=== PATIENT | female | born 1945 | race Caucasian/White ===

== ENCOUNTER → 2016-07-29 | Outpatient (CLI) | payer MEDICARE | END | disposition home or self-care (01) | LOC: LABWHC1 06:35 | PROVIDERS: ATTEND Nurse Practitioner Family | DX: I12.9 Hypertensive chronic kidney disease with stage 1 through stage 4 chronic kidney disease, or unspecified chronic kidney disease (principal); M18.9 Osteoarthritis of first carpometacarpal joint, unspecified | CPT/HCPCS: 36415; 84132 ==

== ENCOUNTER → 2016-08-11 | Outpatient (CLI) | payer MEDICARE ==
[2016-08-11 07:05] LABS: Basophils # (A) 0.1 k/uL (0-0.2); Basophils % (A) 1 %; CH 30.4; CHCM 32.3; Eosinophils # (A) 0.5 k/uL (0-0.7); Eosinophils % (A) 7 %; HCT 35.4 % (34.0-46.0); HDW 2.51; HGB 11.2 gm/dL (11.4-16.0); Luc # (Auto) 0.25; Luc % (Auto) 4; Lymphocytes # (A) 1.9 k/uL (1.0-4.8); Lymphocytes % (A) 28 %; MCHC 31.7 g/dL (31.0-37.0); MCV 94.7 fL (80.0-100.0); Mean Platelet Volume 8.4; Monocytes # (A) 0.5 k/uL (0-1.0); Monocytes % (A) 7 %; Neutrophils # (A) 3.6 k/uL (1.3-7.7); Neutrophils % (A) 53 %; RBC 3.73 m/uL (3.80-5.40); RDW 15.3 % (11.5-15.5); WBC 6.8 k/uL (3.8-10.6); WBC (Perox) 7.05
[2016-08-11 07:16] LABS: Appearance,Urine Clear (Clear); Bacteria,Urine Occasional /hpf; Bilirubin,Urine Negative (Negative); Glucose,Urine (UA) Negative (Negative); Ketones,Urine Negative (Negative); Leukocyte Esterase,Urine Large (Negative); Mucus,Urine Rare /hpf; Nitrite,Urine Negative (Negative); PH, Urine 6.5 (5.0-8.0); Particle Count 2121; Protein,Urine 1+ (Negative); RBC,Urine 1 /hpf (0-5); Specific Gravity,Urine 1.005 (1.001-1.035); Squamous Epithelial Cell,Urine 2 /hpf (0-4); UA Billing (MACRO vs. MICRO) MICRO; Urobilinogen,Urine <2.0 mg/dL (<2.0); WBC,Urine 10 /hpf (0-5)
[2016-08-11 11:21] LABS: Magnesium 2.2 mg/dL (1.6-2.3); Phosphorous 4.5 mg/dL (2.5-4.5); Potassium 3.9 mmol/L (3.5-5.1); Uric Acid 5.6 mg/dL (3.7-7.4)
[2016-08-11 11:31] LABS: % Iron Saturation 24.2 % (20-50)
== END | disposition home or self-care (01) ==
LOC: LABWHC1 06:42
PROVIDERS: ATTEND Nurse Practitioner Family
DX: N18.4 Chronic kidney disease, stage 4 (severe) (principal); D64.9 Anemia, unspecified; E55.9 Vitamin D deficiency, unspecified; E21.3 Hyperparathyroidism, unspecified; N39.0 Urinary tract infection, site not specified
CPT/HCPCS: 36415; 80048; 81001; 82306; 82728; 83540; 83550; 83735; 83970; 84100; 84550; 85025

== ENCOUNTER → 2016-09-08 | Outpatient (CLI) | payer MEDICARE ==
--- NOTE | 2016-09-08 08:55 | US ---
EXAMINATION TYPE: US kidneys/renal and bladder DATE OF EXAM: 09/08/2016 7:29 AM COMPARISON: Limited abdomen ultrasound 27 Nov 2013 CLINICAL HISTORY: N18.4 CKD,Stage 4. EXAM MEASUREMENTS: Right Kidney: 9.4 x 5.3 x 4.5 cm Left Kidney: 10.0 x 4.8 x 4.7 cm Bladder: wnl Cortical medullary differentiation is diminished bilaterally. Cortical echogenicity is increased. Cor tical cyst at the upper pole of the right kidney is again noted. It has increased in size to approxim ately 2 cm from 12 mm. Small echogenic focus measuring 4 mm x 5 mm is present immediately adjacent in the upper pole on the right. IMPRESSION: Findings compatible with medical renal disease.
== END | disposition home or self-care (01) ==
LOC: RADUSWWP 06:53
PROVIDERS: ATTEND Internal Medicine Nephrology
DX: I12.9 Hypertensive chronic kidney disease with stage 1 through stage 4 chronic kidney disease, or unspecified chronic kidney disease (principal)
CPT/HCPCS: 76770; 84132

== ENCOUNTER → 2016-09-15 | Outpatient (CLI) | payer MEDICARE ==
--- NOTE | 2016-09-15 10:24 | WWHP ---
DATE OF SERVICE: 09/15/2016 CHIEF COMPLAINT: The patient is here for her routine gynecologic exam and mammogram. HPI: This is a 71-year-old, G2, P2 with an LMP of 2002. The patient is without gynecologic complaints and denies any postmenopausal bleeding. PAST MEDICAL HISTORY: Chronic hypertension, elevated cholesterol, type 2 diabetes, osteopenia, and renal failure. She states she may need a renal transplant in the future. MEDICATIONS: 1. NovoLog 15 units with meals. 2. Simvastatin 40 mg at bedtime. 3. Furosemide 40 mg daily. 4. Amlodipine besylate 10 mg daily. 5. Hydralazine 25 mg t.i.d. 6. Allopurinol 300 mg daily. 7. Lantus 34 units q.h.s. 8. Sensipar 30 mg weekly. Allergies to PENICILLIN, ERYTHROMYCIN, CLINDAMYCIN, VANCOMYCIN, METRONIDAZOLE and CERTAIN TAPES. Past surgical history is unchanged from the 2014 H&P. 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 SOCIAL HISTORY: She denies tobacco and drug use and rarely drinks alcohol. She has been since the 1960s and is retired. FAMILY HISTORY: Mother had breast cancer. Grandmother had diabetes. REVIEW OF SYSTEMS: Weight has been stable. She denies respiratory, cardiac, or GI problems. She denies maltreatment or falling. She also denies any problems with urinary leakage. PHYSICAL EXAM: Blood pressure 136/77. Height 5 feet 3 inches. Weight 192 pounds. Temperature 97.8, pulse 81. This a well-developed, heavyset white female who is alert and oriented x3 in no acute distress. HEENT is within normal limits. NECK: Supple without mass or thyromegaly. CHEST AND LUNGS: Clear to auscultation. HEART: Regular rate and rhythm. Breasts are without mass or discharge. Axillary exam is negative for adenopathy. BACK: Negative for CVA tenderness. ABDOMEN: Mildly obese and there is a slight bruising in the areas of her insulin injections. The abdomen is soft and nontender, without palpable masses. PELVIC EXAM: External genitalia reveals mild to moderate atrophy without lesions. Cervix and vagina reveal mild to moderate atrophy without lesions. There is a grade 2 rectocele and minimal uterine prolapse. The uterus is midposition, nongravid size and nontender. There are no palpable adnexal masses or tenderness. Rectovaginal exam confirms a small rectocele and is negative for mass or tenderness and is negative for occult blood. EXTREMITIES: Nontender. IMPRESSION: 1. A 71-year-old menopausal female with asymptomatic grade 2 rectocele and otherwise unremarkable gynecologic exam. 2. History of osteopenia. 3. Multiple medical problems. PLAN: 1. Pap smear was performed. 2. Self breast examination was discussed. 3. Mammogram will be done today. 4. Osteoporosis prevention was discussed. 5. We will plan on repeating bone density testing in 1 to 2 years. 6. 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 She understands generally I would suggest 120 to 150% of the daily value. She will discuss with Dr. Borges whether she can take in this amount and the best way to do this. 7. She decline the flu shot. 8. She will return in one year.
--- NOTE | 2016-09-16 09:42 | MM ---
Reason for exam: screening (asymptomatic). Last mammogram was performed 1 year and 2 months ago. History: Patient is postmenopausal. Family history of breast cancer in mother at age 63. Took hormonal contraceptives for 4 years beginning at age 22. Physical Findings: A clinical breast exam by your physician is recommended on an annual basis and results should be correlated with mammographic findings. MG 3D Screening Mammo W/Cad Bilateral CC and MLO view(s) were taken. Prior study comparison: July 31, 2015, bilateral MG 3d screening mammo w/cad. June 19, 2014, right breast MG work up mamm w CAD RT. There are scattered fibroglandular densities. Benign calcifications. New right retroareolar nodule. ASSESSMENT: Incomplete: need additional imaging evaluation, BI-RAD 0 RECOMMENDATION: Special view mammogram and ultrasound of the right breast. [facility] will attempt to contact patient to return for supplemental views and ultrasound.
== END | disposition home or self-care (01) ==
LOC: WWCWWP 08:42
PROVIDERS: ATTEND Obstetrics & Gynecology
DX: Z12.31 Encounter for screening mammogram for malignant neoplasm of breast (principal)
CPT/HCPCS: 77063; G0202

== ENCOUNTER → 2016-09-21 | Outpatient (CLI) | payer MEDICARE ==
--- NOTE | 2016-09-21 14:48 | MM ---
Reason for exam: additional evaluation requested from abnormal screening. Last mammogram was performed less than 1 month ago. History: Patient is postmenopausal. Family history of breast cancer in mother at age 63. Took hormonal contraceptives for 4 years beginning at age 22. Physical Findings: Nurse did not find any significant physical abnormalities on exam. MG 3D Work Up W/Cad RT Spot compression CC, spot compression MLO, and ML view(s) were taken of the right breast. Prior study comparison: September 15, 2016, bilateral MG 3d screening mammo w/cad. July 31, 2015, bilateral MG 3d screening mammo w/cad. No significant new findings when compared with previous films. These results were verbally communicated with the patient and result sheet given to the patient on 09/21/16. ASSESSMENT: Incomplete: need additional imaging evaluation, BI-RAD 0 RECOMMENDATION: Ultrasound of the right breast.
--- NOTE | 2016-09-21 14:49 | USB ---
Reason for exam: additional evaluation requested from abnormal screening. History: Patient is postmenopausal. Family history of breast cancer in mother at age 63. Took hormonal contraceptives for 4 years beginning at age 22. US Breast Workup Limited RT Right breast ultrasound demonstrates a 0.6 x 0.3 x 0.8cm ductal ectasia at the posterior nipple. These results were verbally communicated with the patient and result sheet given to the patient on 09/21/16. ASSESSMENT: Benign, BI-RAD 2 RECOMMENDATION: Return to routine screening mammogram schedule for both breasts.
== END | disposition home or self-care (01) ==
LOC: RADMAMWWP 13:17
PROVIDERS: ATTEND Obstetrics & Gynecology
DX: R92.8 Other abnormal and inconclusive findings on diagnostic imaging of breast (principal)
CPT/HCPCS: 76642; G0206; G0279

== ENCOUNTER → 2016-09-30 | Outpatient (CLI) | payer MEDICARE ==
[2016-09-30 11:31] LABS: % Iron Saturation 20.3 % (20-50)
== END | disposition home or self-care (01) ==
LOC: LABWHC1 10:29
PROVIDERS: ATTEND Nurse Practitioner Family
DX: N25.81 Secondary hyperparathyroidism of renal origin (principal); D63.1 Anemia in chronic kidney disease
CPT/HCPCS: 36415; 82306; 82728; 83540; 83550; 83970

== ENCOUNTER → 2016-10-23 | Outpatient (CLI) | payer MEDICARE, OTHER ==
[~2016-10-23] MED LIST: REGADENOSON 0.4 MG/5 ML SYRINGE IV ONE
--- NOTE | 2016-10-23 11:34 | EST ---
DATE OF SERVICE: 10/23/2016 AGE: 71Y SEX: F HT: 63" WT: 195 lbs. Protocol Alonso: Other: Lexiscan Cardiolite Stage: Dur. of Exercise: *Heart Rate Blood Pressure *Rest: 74 Rest: 209/88 * *Max. Achieved: 83 Maximum BP: 157/69 85% PMHR: 128 100% PMHR: 151 *METS: INDICATIONS: Pre-op. MEDICATIONS: Patient was given Lexiscan injection over a period of 15 seconds. Peak heart rate of 83 was achieved. Maximum blood pressure of 157/69 mmHg was noted. Resting EKG shows normal sinus rhythm with normal LA interval and QRS duration and normal ST-T waves. No ST segment depression suggestive of ischemia is noted. Nuclear study will follow.
--- NOTE | 2016-10-23 12:11 | NM ---
EXAMINATION TYPE: NM stress Lexiscan cardiolite DATE OF EXAM: 10/23/2016 11:19 AM COMPARISON: NONE HISTORY: Preoperative study. TECHNIQUE: After the intravenous administration of 10.08 mCi Tc 99m Sestamibi - Cardiolite resting S PECT images acquired 45 minutes post injection. The patient received 0.4mg Lexiscan, 27.2 mCi Tc 99m Sestamibi - Stress images obtained [address] injection FINDINGS: There is good uptake of radiopharmaceutical by the left ventricle without fixed defect. The re is no convincing inducible ischemic change. Wall motion is normal and ejection fraction is normal at 56%. IMPRESSION: I DO NOT SEE CONVINCING EVIDENCE OF INDUCIBLE ISCHEMIC CHANGE AT THIS TIME.
== END | disposition home or self-care (01) ==
LOC: RADNMMAIN 08:41
PROVIDERS: ATTEND Internal Medicine
DX: Z01.810 Encounter for preprocedural cardiovascular examination (principal); N18.5 Chronic kidney disease, stage 5
CPT/HCPCS: 93017; 78452; 93005; A9500; J2785

== ENCOUNTER → 2016-10-26 | Outpatient (CLI) | payer MEDICARE ==
[2016-10-26 14:41] LABS: % Iron Saturation 22.9 % (20-50)
== END ==
LOC: LABWHC1 14:00
PROVIDERS: ATTEND Nurse Practitioner Family
DX: N25.81 Secondary hyperparathyroidism of renal origin (principal); N18.9 Chronic kidney disease, unspecified; D63.1 Anemia in chronic kidney disease
CPT/HCPCS: 36415; 82306; 82728; 83540; 83550; 83970

== ENCOUNTER → 2016-11-03 | Outpatient (CLI) | payer MEDICARE, OTHER ==
--- NOTE | 2016-11-03 10:42 | US ---
EXAMINATION TYPE: US carotid duplex BILAT DATE OF EXAM: 11/03/2016 9:40 AM COMPARISON: NONE CLINICAL HISTORY: N18.5 chronic kidney disease. Pre op kidney transplant EXAM MEASUREMENTS: RIGHT: Peak Systolic Velocity (PSV) cm/sec ----- Right CCA: 63.8 ----- Right ICA: 84.5 ----- Right ECA: 93.3 ICA/CCA ratio: 1.3 RIGHT: End Diastole cm/sec ----- Right CCA: 11.5 ----- Right ICA: 18.6 ----- Right ECA: 8.7 LEFT: Peak Systolic Velocity (PSV) cm/sec ----- Left CCA: 76.8 ----- Left ICA: 78.8 ----- Left ECA: 71.1 ICA/CCA ratio: 1.0 LEFT: End Diastole cm/sec ----- Left CCA: 15.3 ----- Left ICA: 25.8 ----- Left ECA: 10.2 VERTEBRALS (direction of flow): Right Vertebral: Antegrade Left Vertebral: Antegrade No significant stenosis seen IMPRESSION: No significant hemodynamic stenosis. Large intimal thickening and mild plaque formation
--- NOTE | 2016-11-03 11:40 | ECHOF ---
Referral Reason:N18.5 chronic kidney disease MEASUREMENTS -------- HEIGHT: 160.0 cm WEIGHT: 87.5 kg BP: 180/87 RVIDd: 3.0 cm (< 3.3) IVSd: 1.2 cm (0.6 - 1.1) LVIDd: 3.8 cm (3.9 - 5.3) LVPWd: 1.1 cm (0.6 - 1.1) IVSs: 1.6 cm LVIDs: 2.8 cm LVPWs: 1.8 cm LA Diam: 3.2 cm (2.7 - 3.8) LAESV Index (A-L): 29.98 ml/m Ao Diam: 2.9 cm (2.0 - 3.7) AV Cusp: 2.1 cm (1.5 - 2.6) MV EXCURSION: 17.310 mm (> 18.000) MV EF SLOPE: 49 mm/s (70 - 150) EPSS: 0.5 cm MV E Nabeel: 0.77 m/s MV DecT: 229 ms MV A Nabeel: 1.00 m/s MV E/A Ratio: 0.77 AV maxP.82 mmHg AV meanP.91 mmHg RAP: 5.00 mmHg RVSP: 37.26 mmHg FINDINGS -------- Sinus rhythm. This was a technically good study. The left ventricular size is normal. There is borderline concentric left ventricular hypertrophy. Overall left ventricular systolic function is normal with, an EF between 60 - 65 %. The right ventricle is normal in size and function. LA is midly dilated 29-33ml/m2. The right atrium is normal in size. Lipomatous hypertrophy of atrial septum. There is mild aortic valve sclerosis. The mitral valve leaflets are mildly thickened. Moderate mitral annular calcification present. Trace tricuspid regurgitation present. There is mild pulmonary hypertension. The right ventricular systolic pressure, as measured by Doppler, is 37.26mmHg. The pulmonic valve is normal. The aortic root size is normal. Normal inferior vena cava with normal inspiratory collapse consistent with estimated right atrial pressure of 5 mmHg. The pericardium is normal. CONCLUSIONS -------- 1. Sinus rhythm. 2. There is mild aortic valve sclerosis. 3. The mitral valve leaflets are mildly thickened. 4. Moderate mitral annular calcification present. 5. Trace tricuspid regurgitation present. 6. There is mild pulmonary hypertension. 7. The right ventricular systolic pressure, as measured by Doppler, is 37.26mmHg. 8. The pulmonic valve is normal. 9. The aortic root size is normal. 10. Normal inferior vena cava with normal inspiratory collapse consistent with estimated right atrial pressure of 5 mmHg. 11. The pericardium is normal. 12. This was a technically good study. 13. The left ventricular size is normal. 14. There is borderline concentric left ventricular hypertrophy. 15. Overall left ventricular systolic function is normal with, an EF between 60 - 65 %. 16. The right ventricle is normal in size and function. 17. LA is midly dilated 29-33ml/m2. 18. The right atrium is normal in size. 19. Lipomatous hypertrophy of atrial septum. SENIOR TRAINING AND DEVELOPMENT REP: Anna Marie Hurd RDCS
== END ==
LOC: RADUSMAIN 08:45
PROVIDERS: ATTEND Internal Medicine
DX: N18.5 Chronic kidney disease, stage 5 (principal)
CPT/HCPCS: 93306; 93880

== ENCOUNTER → 2016-11-13 | Outpatient (CLI) | payer MEDICARE ==
[2016-11-13 10:06] LABS: Basophils # (A) 0.1 k/uL (0-0.2); Basophils % (A) 1 %; CH 30.3; Eosinophils # (A) 0.5 k/uL (0-0.7); Eosinophils % (A) 6 %; HCT 35.6 % (34.0-46.0); HDW 2.48; HGB 11.5 gm/dL (11.4-16.0); Luc # (Auto) 0.29; Luc % (Auto) 3; Lymphocytes # (A) 1.9 k/uL (1.0-4.8); Lymphocytes % (A) 23 %; MCH 30.8 pg (25.0-35.0); MCHC 32.3 g/dL (31.0-37.0); MCV 95.2 fL (80.0-100.0); Mean Platelet Volume 8.5; Monocytes # (A) 0.5 k/uL (0-1.0); Monocytes % (A) 5 %; Neutrophils # (A) 5.4 k/uL (1.3-7.7); Neutrophils % (A) 63 %; RBC 3.74 m/uL (3.80-5.40); RDW 15.3 % (11.5-15.5); WBC 8.6 k/uL (3.8-10.6); WBC (Perox) 8.38
[2016-11-13 10:49] LABS: Appearance,Urine Cloudy (Clear); Bacteria,Urine Many /hpf; Bilirubin,Urine Negative (Negative); Glucose,Urine (UA) 1+ (Negative); Ketones,Urine Negative (Negative); Leukocyte Esterase,Urine Large (Negative); Mucus,Urine Rare /hpf; Nitrite,Urine Negative (Negative); PH, Urine 5.5 (5.0-8.0); Particle Count 5667; Protein,Urine 1+ (Negative); RBC,Urine 9 /hpf (0-5); Specific Gravity,Urine 1.009 (1.001-1.035); Squamous Epithelial Cell,Urine 7 /hpf (0-4); UA Billing (MACRO vs. MICRO) MICRO; Urobilinogen,Urine <2.0 mg/dL (<2.0); WBC,Urine 96 /hpf (0-5)
[2016-11-13 11:44] LABS: Calcium 10.5 mg/dL (8.4-10.2); Magnesium 2.1 mg/dL (1.6-2.3); Phosphorous 4.1 mg/dL (2.5-4.5); Potassium 3.9 mmol/L (3.5-5.1); Uric Acid 6.3 mg/dL (3.7-7.4)
[2016-11-13 11:54] LABS: % Iron Saturation 18.1 % (20-50)
== END | disposition home or self-care (01) ==
LOC: LABWHC1 09:26
PROVIDERS: ATTEND Nurse Practitioner Family
DX: E79.0 Hyperuricemia without signs of inflammatory arthritis and tophaceous disease (principal); D63.1 Anemia in chronic kidney disease; E55.9 Vitamin D deficiency, unspecified; I12.9 Hypertensive chronic kidney disease with stage 1 through stage 4 chronic kidney disease, or unspecified chronic kidney disease; N18.4 Chronic kidney disease, stage 4 (severe); N25.81 Secondary hyperparathyroidism of renal origin; M10.9 Gout, unspecified; D64.9 Anemia, unspecified; E21.3 Hyperparathyroidism, unspecified; E83.39 Other disorders of phosphorus metabolism; R80.9 Proteinuria, unspecified
CPT/HCPCS: 36415; 80048; 81001; 82306; 82728; 83540; 83550; 83735; 83970; 84100; 84550; 85025

== ENCOUNTER → 2016-12-01 | Outpatient (CLI) | payer MEDICARE ==
[2016-12-01 07:24] LABS: Basophils # (A) 0.1 k/uL (0-0.2); Basophils % (A) 1 %; CH 29.9; CHCM 32.1; Eosinophils # (A) 0.5 k/uL (0-0.7); Eosinophils % (A) 8 %; HCT 34.4 % (34.0-46.0); HDW 2.42; HGB 11.3 gm/dL (11.4-16.0); Luc # (Auto) 0.25; Luc % (Auto) 4; Lymphocytes # (A) 2.2 k/uL (1.0-4.8); Lymphocytes % (A) 35 %; MCH 30.7 pg (25.0-35.0); MCHC 32.7 g/dL (31.0-37.0); MCV 93.7 fL (80.0-100.0); Mean Platelet Volume 8.6; Monocytes # (A) 0.5 k/uL (0-1.0); Monocytes % (A) 8 %; Neutrophils # (A) 2.8 k/uL (1.3-7.7); Neutrophils % (A) 44 %; RBC 3.67 m/uL (3.80-5.40); RDW 15.3 % (11.5-15.5); WBC 6.4 k/uL (3.8-10.6); WBC (Perox) 6.86
[2016-12-01 07:41] LABS: Appearance,Urine Clear (Clear); Bacteria,Urine Few /hpf; Bilirubin,Urine Negative (Negative); Glucose,Urine (UA) Negative (Negative); Ketones,Urine Negative (Negative); Leukocyte Esterase,Urine Moderate (Negative); Mucus,Urine Rare /hpf; Nitrite,Urine Negative (Negative); PH, Urine 6.5 (5.0-8.0); Particle Count 1152; Protein,Urine Trace (Negative); RBC,Urine 1 /hpf (0-5); Specific Gravity,Urine 1.006 (1.001-1.035); Squamous Epithelial Cell,Urine 1 /hpf (0-4); UA Billing (MACRO vs. MICRO) MICRO; Urobilinogen,Urine <2.0 mg/dL (<2.0); WBC,Urine 7 /hpf (0-5)
[2016-12-01 07:59] LABS: Hemoglobin A1C 9.4 % (4.2-6.1)
[2016-12-01 10:55] LABS: Calcium 10.1 mg/dL (8.4-10.2); Potassium 3.7 mmol/L (3.5-5.1)
[2016-12-01 11:09] LABS: % Iron Saturation 29.5 % (20-50)
== END | disposition home or self-care (01) ==
LOC: LABWHC1 06:36
PROVIDERS: ATTEND Nurse Practitioner Family
DX: E11.22 Type 2 diabetes mellitus with diabetic chronic kidney disease (principal); N18.4 Chronic kidney disease, stage 4 (severe); D50.9 Iron deficiency anemia, unspecified; N25.81 Secondary hyperparathyroidism of renal origin; N39.0 Urinary tract infection, site not specified
CPT/HCPCS: 36415; 80048; 81001; 82728; 83036; 83540; 83550; 83970; 85025

== ENCOUNTER → 2016-12-14 | Outpatient (CLI) | payer OTHER | END | disposition home or self-care (01) | LOC: LABWHC1 09:51 | PROVIDERS: ATTEND Internal Medicine | DX: N18.5 Chronic kidney disease, stage 5 (principal) | CPT/HCPCS: 36415 ==

== ENCOUNTER → 2017-01-07 | Outpatient (CLI) | payer MEDICARE, OTHER ==
[2017-01-07 07:55] LABS: Anisocytosis Slight; Basophils # (A) 0.1 k/uL (0-0.2); Basophils % (A) 1 %; CH 31.5; Eosinophils # (A) 0.6 k/uL (0-0.7); Eosinophils % (A) 6 %; HCT 37.5 % (34.0-46.0); HDW 2.32; HGB 12.5 gm/dL (11.4-16.0); Luc # (Auto) 0.31; Luc % (Auto) 3; Lymphocytes # (A) 2.8 k/uL (1.0-4.8); Lymphocytes % (A) 30 %; MCHC 33.3 g/dL (31.0-37.0); MCV 96.1 fL (80.0-100.0); Mean Platelet Volume 9.1; Monocytes # (A) 0.6 k/uL (0-1.0); Monocytes % (A) 7 %; Neutrophils % (A) 53 %; RDW 16.2 % (11.5-15.5); WBC 9.4 k/uL (3.8-10.6); WBC (Perox) 8.93
[2017-01-07 08:05] LABS: Appearance,Urine Cloudy (Clear); Bacteria,Urine Many /hpf; Bilirubin,Urine Negative (Negative); Glucose,Urine (UA) Negative (Negative); Ketones,Urine Negative (Negative); Leukocyte Esterase,Urine Large (Negative); Mucus,Urine Rare /hpf; Nitrite,Urine Negative (Negative); PH, Urine 5.5 (5.0-8.0); Particle Count 4044; Protein,Urine Trace (Negative); RBC,Urine 5 /hpf (0-5); Specific Gravity,Urine 1.008 (1.001-1.035); Squamous Epithelial Cell,Urine 5 /hpf (0-4); UA Billing (MACRO vs. MICRO) MICRO; Urobilinogen,Urine <2.0 mg/dL (<2.0); WBC,Urine 23 /hpf (0-5)
[2017-01-07 08:41] LABS: Hemoglobin A1C 9.1 % (4.2-6.1)
[2017-01-07 10:27] LABS: Calcium 10.7 mg/dL (8.4-10.2); Potassium 4.6 mmol/L (3.5-5.1)
[2017-01-07 10:36] LABS: % Iron Saturation 36.7 % (20-50)
== END | disposition home or self-care (01) ==
LOC: LABWHC1 07:01
PROVIDERS: ATTEND Nurse Practitioner Family
DX: N18.4 Chronic kidney disease, stage 4 (severe) (principal); D50.9 Iron deficiency anemia, unspecified; E11.65 Type 2 diabetes mellitus with hyperglycemia; N25.81 Secondary hyperparathyroidism of renal origin; N39.0 Urinary tract infection, site not specified
CPT/HCPCS: 36415; 80048; 81001; 82728; 83036; 83540; 83550; 83970; 85025

== ENCOUNTER → 2017-01-13 | Outpatient (CLI) | payer MEDICARE | END | disposition home or self-care (01) | LOC: LABWHC1 11:21 | PROVIDERS: ATTEND Nurse Practitioner Family | DX: E83.52 Hypercalcemia (principal) | CPT/HCPCS: 36415; 82310 ==

== ENCOUNTER → 2017-03-17 | Outpatient (CLI) | payer MEDICARE ==
[2017-03-17 12:13] LABS: Iron 65 ug/dL (37-170); Magnesium 2.2 mg/dL (1.6-2.3); Phosphorous 4.4 mg/dL (2.5-4.5); Uric Acid 6.6 mg/dL (3.7-7.4)
[2017-03-17 12:22] LABS: % Iron Saturation 23.8 % (20-50); Total Iron Binding Capacity 273 ug/dL (265-497)
[2017-03-17 13:44] LABS: Appearance,Urine Clear (Clear); Bilirubin,Urine Negative (Negative); Glucose,Urine (UA) 2+ (Negative); Ketones,Urine Negative (Negative); Leukocyte Esterase,Urine Negative (Negative); Nitrite,Urine Negative (Negative); Protein,Urine Trace (Negative); Specific Gravity,Urine 1.007 (1.001-1.035); UA Billing (MACRO vs. MICRO) CHEM; Urobilinogen,Urine <2.0 mg/dL (<2.0)
== END | disposition home or self-care (01) ==
LOC: LABWHC1 10:57
PROVIDERS: ATTEND Nurse Practitioner Family
DX: E79.0 Hyperuricemia without signs of inflammatory arthritis and tophaceous disease (principal); N18.4 Chronic kidney disease, stage 4 (severe); D50.9 Iron deficiency anemia, unspecified; E83.39 Other disorders of phosphorus metabolism; N39.0 Urinary tract infection, site not specified
CPT/HCPCS: 36415; 81003; 82728; 83540; 83550; 83735; 83970; 84100; 84550

== ENCOUNTER → 2017-04-21 | Outpatient (CLI) | payer MEDICARE ==
[2017-04-21 11:10] LABS: Basophils # (A) 0.1 k/uL (0-0.2); Basophils % (A) 1 %; CH 31.8; CHCM 31.5; Eosinophils # (A) 0.4 k/uL (0-0.7); Eosinophils % (A) 5 %; HCT 36.4 % (34.0-46.0); HDW 2.36; HGB 11.6 gm/dL (11.4-16.0); Luc # (Auto) 0.26; Luc % (Auto) 3; Lymphocytes # (A) 1.7 k/uL (1.0-4.8); Lymphocytes % (A) 19 %; MCH 32.3 pg (25.0-35.0); MCHC 31.8 g/dL (31.0-37.0); MCV 101.5 fL (80.0-100.0); Macrocytosis Slight; Mean Platelet Volume 8.3; Monocytes # (A) 0.6 k/uL (0-1.0); Monocytes % (A) 6 %; Neutrophils # (A) 5.9 k/uL (1.3-7.7); Neutrophils % (A) 67 %; RBC 3.58 m/uL (3.80-5.40); RDW 14.7 % (11.5-15.5); WBC 8.8 k/uL (3.8-10.6); WBC (Perox) 8.94
[2017-04-21 11:15] LABS: Appearance,Urine Clear (Clear); Bacteria,Urine Moderate /hpf; Bilirubin,Urine Negative (Negative); Glucose,Urine (UA) 2+ (Negative); Ketones,Urine Negative (Negative); Leukocyte Esterase,Urine Moderate (Negative); Mucus,Urine Rare /hpf; Nitrite,Urine Negative (Negative); Particle Count 1203; Protein,Urine 1+ (Negative); RBC,Urine 1 /hpf (0-5); Specific Gravity,Urine 1.007 (1.001-1.035); Squamous Epithelial Cell,Urine 2 /hpf (0-4); UA Billing (MACRO vs. MICRO) MICRO; Urobilinogen,Urine <2.0 mg/dL (<2.0); WBC,Urine 7 /hpf (0-5)
[2017-04-21 11:42] LABS: Calcium 10.1 mg/dL (8.4-10.2); Magnesium 2.2 mg/dL (1.6-2.3); Phosphorous 4.9 mg/dL (2.5-4.5); Potassium 4.3 mmol/L (3.5-5.1)
[2017-04-21 15:33] LABS: Iron Saturation 17.05 (12.00-45.00)
== END | disposition home or self-care (01) ==
LOC: LABWHC1 10:17
PROVIDERS: ATTEND Internal Medicine Nephrology
DX: N18.4 Chronic kidney disease, stage 4 (severe) (principal); N25.81 Secondary hyperparathyroidism of renal origin; D64.9 Anemia, unspecified; M10.9 Gout, unspecified; N39.0 Urinary tract infection, site not specified
CPT/HCPCS: 36415; 80048; 81001; 82040; 82306; 82728; 83540; 83550; 83735; 83970; 84100; 84550; 85025

== ENCOUNTER → 2017-08-09 | Outpatient (CLI) | payer OTHER ==
[2017-08-09 07:53] LABS: HCT 35.1 % (34.0-46.0); HGB 11.2 gm/dL (11.4-16.0); MCH 30.7 pg (25.0-35.0); MCHC 32.1 g/dL (31.0-37.0); MCV 95.8 fL (80.0-100.0); Mean Platelet Volume 8.5; Platelet Count 227 k/uL (150-450); RBC 3.66 m/uL (3.80-5.40); RDW 14.7 % (11.5-15.5); WBC 8.2 k/uL (3.8-10.6)
[2017-08-09 07:58] LABS: Albumin 4.2 g/dL (3.5-5.0); Calcium 10.5 mg/dL (8.4-10.2); Magnesium 2.3 mg/dL (1.6-2.3); Phosphorus 4.5 mg/dL (2.5-4.5); Potassium 4.4 mmol/L (3.5-5.1); Total Bilirubin 0.4 mg/dL (0.2-1.3); Total Protein 7.2 g/dL (6.3-8.2); Uric Acid 4.8 mg/dL (3.7-7.4)
[2017-08-09 15:29] LABS: Iron Saturation 22.22 (12.00-45.00)
[2017-08-09 15:38] LABS: Vitamin D 25 Hydroxy 25.7 ng/mL (30.0-100.0)
[2017-08-09 16:31] LABS: Parathyroid Hormone Intact 98.2 pg/mL (14.0-72.0)
== END | disposition home or self-care (01) ==
LOC: LABWHC1 06:51
PROVIDERS: ATTEND Nurse Practitioner Family
DX: E83.39 Other disorders of phosphorus metabolism (principal); N18.5 Chronic kidney disease, stage 5; D50.9 Iron deficiency anemia, unspecified; E79.0 Hyperuricemia without signs of inflammatory arthritis and tophaceous disease; E83.52 Hypercalcemia
CPT/HCPCS: 36415; 80053; 82306; 82728; 83540; 83550; 83735; 83970; 84100; 84550; 85027

== ENCOUNTER → 2017-09-29 | Outpatient (CLI) | payer MEDICARE ==
[2017-09-29 08:53] LABS: HCT 32.2 % (34.0-46.0); HGB 10.2 gm/dL (11.4-16.0); MCH 29.7 pg (25.0-35.0); MCHC 31.7 g/dL (31.0-37.0); MCV 93.7 fL (80.0-100.0); Platelet Count 221 k/uL (150-450); RBC 3.43 m/uL (3.80-5.40); WBC 6.3 k/uL (3.8-10.6)
[2017-09-29 09:07] LABS: Albumin 4.1 g/dL (3.5-5.0); Calcium 10.1 mg/dL (8.4-10.2); Magnesium 2.4 mg/dL (1.6-2.3); Phosphorus 4.6 mg/dL (2.5-4.5); Potassium 4.3 mmol/L (3.5-5.1); Total Bilirubin 0.3 mg/dL (0.2-1.3)
[2017-09-29 16:35] LABS: Iron Saturation 23.76 (12.00-45.00)
[2017-09-29 18:01] LABS: Parathyroid Hormone Intact 94.4 pg/mL (14.0-72.0)
== END | disposition home or self-care (01) ==
LOC: LABWHC1 07:59
PROVIDERS: ATTEND Nurse Practitioner Family
DX: D50.9 Iron deficiency anemia, unspecified (principal); E55.9 Vitamin D deficiency, unspecified; E79.0 Hyperuricemia without signs of inflammatory arthritis and tophaceous disease; N18.5 Chronic kidney disease, stage 5
CPT/HCPCS: 36415; 80053; 82728; 83540; 83550; 83735; 83970; 84100; 84550; 85027

== ENCOUNTER → 2017-11-02 | Outpatient (CLI) | payer MEDICARE ==
[2017-11-02 09:03] VITALS: BP 146/75; PULSE 85; TEMP 97.7; BMI 32.1
--- NOTE | 2017-11-02 09:49 | P.HPOB ---
History of Present Illness H&P Date: 11/02/17 Chief Complaint: The patient is here for her routine gynecologic exam and mammogram. This is a 72-year-old with an LMP of 2002. The patient is without gynecologic complaints. Review of Systems She has lost about 9 pounds over the last year. She denies respiratory, cardiac and G.I. problems. She denies maltreatment or problems with falling. : she denies any significant problems with urinary leakage. 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 Osteopenia. 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 She had 2 spontaneous abortions and to vaginal deliveries. History of Any Multi-Drug Resistant Organisms: None Reported Past Surgical History: Adenoidectomy, Appendectomy, Tonsillectomy Additional Past Surgical History / Comment(s): fatty tumor removed; hiatal hernia repair. Had a colonoscopy 2013. Left antecubital fistula placement for possible dialysis. Past Anesthesia/Blood Transfusion Reactions: No Reported Reaction Past Psychological History: No Psychological Hx Reported Smoking Status: Never smoker Past Alcohol Use History: Rare Past Drug Use History: None Reported Additional History: She is a since 06/27. She is retired. - Past Family History Mother Family Medical History: Cancer (Breast cancer) Medications and Allergies Home Medications Medication Instructions Recorded Confirmed Type Simvastatin [Zocor] 40 mg PO HS 11/25/13 11/02/17 History amLODIPine BESYLATE [Norvasc] 10 mg PO DAILY 11/25/13 11/02/17 History Furosemide [Lasix] 20 mg PO DAILY #30 tablet 12/01/13 11/02/17 Rx Cinacalcet [Sensipar] 30 mg PO DIRECTED 12/01/16 11/02/17 History Insulin Aspart [NovoLOG Flexpen] 0 units SQ AC-TID 12/01/16 11/02/17 History Insulin Glargine,Hum.rec.anlog 16 unit SQ TID 12/01/16 11/02/17 History [Lantus Solostar] Spironolactone [Aldactone] 12.5 mg PO DAILY 12/01/16 11/02/17 History Allopurinol [Zyloprim] mg PO DAILY 11/02/17 History Insulin Glargine [Lantus] units HS 11/02/17 History Allergies Allergy/AdvReac Type Severity Reaction Status Date / Time adhesive Allergy Rash/Hives Verified 11/02/17 09:04 codeine Allergy Rash/Hives Verified 11/02/17 09:04 erythromycin base Allergy Rash/Hives Verified 11/02/17 09:04 [Erythromycin Base] Exam - Vital Signs Vital signs: Vital Signs Temp Pulse BP 11/02/17 08:50 97.7 F 85 146/75 Intake and Output 11/01/17 11/02/17 11/02/17 22:59 06:59 14:59 Other: Weight 82.1 kg Height 5'3", BMI 32.1. This is a well-developed well-nourished white female who is alert and oriented times 3 in no acute distress. HEENT: Within normal limits. NECK: Supple without mass or thyromegaly. CHEST AND LUNGS: Clear to auscultation. HEART: Regular rate and rhythm. BREASTS: Are without mass or discharge. AXILLARY EXAM: Negative for adenopathy. BACK: Negative for CVA tenderness. ABDOMEN: Soft, nontender, without palpable masses. PELVIC EXAM: Normal external genitalia with mild to moderate atrophy. Cervix and vagina appear normal with mild atrophy and a stable grade 2 rectocele. There is no unusual discharge. The uterus is midposition, nongravid size and nontender. There are no palpable adnexal masses or tenderness. RECTAL EXAM: rectovaginal exam confirms a small rectocele and is negative for mass or tenderness and is negative for occult blood. EXTREMITIES: Nontender. IMPRESSION: 1. 72-year-old menopausal female with stable grade 2 asymptomatic rectocele. 2. History of osteopenia. 3. Multiple medical problems. PLAN: 1. Pap smear was deferred since she had a normal one last year. 2. Self breast awareness was discussed. 3. Screening mammogram will be done today. 4. Osteoporosis prevention was discussed. 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 We will plan a repeating bone density testing next year. 5. She will return in one year.
--- NOTE | 2017-11-03 11:56 | MM ---
Reason for exam: screening (asymptomatic). Last mammogram was performed 1 year and 1 month ago. History: Patient is postmenopausal. Family history of breast cancer in mother at age 63. Took hormonal contraceptives for 4 years beginning at age 22. Physical Findings: A clinical breast exam by your physician is recommended on an annual basis and results should be correlated with mammographic findings. MG 3D Screening Mammo W/Cad Bilateral CC and MLO view(s) were taken. Prior study comparison: September 21, 2016, right breast MG 3d work up w/cad RT. September 15, 2016, bilateral MG 3d screening mammo w/cad. There are scattered fibroglandular densities. No suspicious abnormality. Right ductal ectasia again noted. No significant changes when compared with prior studies. ASSESSMENT: Benign, BI-RAD 2 RECOMMENDATION: Routine screening mammogram of both breasts in 1 year.
== END | disposition home or self-care (01) ==
LOC: WWCWWP 08:08
PROVIDERS: ATTEND Obstetrics & Gynecology
DX: Z12.31 Encounter for screening mammogram for malignant neoplasm of breast (principal)
CPT/HCPCS: 77063; 77067

== ENCOUNTER → 2017-12-02 | Outpatient (CLI) | payer MEDICARE ==
[2017-12-02 08:40] LABS: Appearance,Urine Clear (Clear); Bacteria,Urine Few /hpf; Bilirubin,Urine Negative (Negative); Blood,Urine Negative (Negative); Color,Urine Colorless; Glucose,Urine (UA) 1+ (Negative); Ketones,Urine Negative (Negative); Leukocyte Esterase,Urine Large (Negative); Mucus,Urine Rare /hpf; Nitrite,Urine Negative (Negative); PH, Urine 5.5 (5.0-8.0); Protein,Urine Trace (Negative); RBC,Urine 2 /hpf (0-5); Specific Gravity,Urine 1.006 (1.001-1.035); Squamous Epithelial Cell,Urine 1 /hpf (0-4); Urobilinogen,Urine <2.0 mg/dL (<2.0); WBC,Urine 12 /hpf (0-5)
[2017-12-02 08:49] LABS: Basophils % (A) 0 %; Eosinophils # (A) 0.4 k/uL (0-0.7); Eosinophils % (A) 7 %; HCT 35.1 % (34.0-46.0); HGB 11.1 gm/dL (11.4-16.0); Lymphocytes # (A) 1.5 k/uL (1.0-4.8); Lymphocytes % (A) 24 %; MCH 29.9 pg (25.0-35.0); MCHC 31.6 g/dL (31.0-37.0); MCV 94.5 fL (80.0-100.0); Mean Platelet Volume 8.4; Monocytes # (A) 0.5 k/uL (0-1.0); Monocytes % (A) 7 %; Neutrophils # (A) 3.8 k/uL (1.3-7.7); Neutrophils % (A) 59 %; Platelet Count 205 k/uL (150-450); RBC 3.72 m/uL (3.80-5.40); WBC 6.4 k/uL (3.8-10.6)
[2017-12-02 09:07] LABS: Calcium 9.8 mg/dL (8.4-10.2); Magnesium 2.2 mg/dL (1.6-2.3); Phosphorus 5.2 mg/dL (2.5-4.5); Potassium 4.5 mmol/L (3.5-5.1); Uric Acid 4.6 mg/dL (3.7-7.4)
[2017-12-02 15:55] LABS: Iron Saturation 26.37 (12.00-45.00)
[2017-12-02 17:48] LABS: Parathyroid Hormone Intact 171.3 pg/mL (14.0-72.0)
== END | disposition home or self-care (01) ==
LOC: LABWHC1 08:04
PROVIDERS: ATTEND Internal Medicine Nephrology
DX: N18.5 Chronic kidney disease, stage 5 (principal); N25.81 Secondary hyperparathyroidism of renal origin; D64.9 Anemia, unspecified; M10.9 Gout, unspecified; N39.0 Urinary tract infection, site not specified
CPT/HCPCS: 36415; 80048; 81001; 82306; 82728; 83540; 83550; 83735; 83970; 84100; 84550; 85025

== ENCOUNTER → 2018-02-07 | Outpatient (CLI) | payer MEDICARE ==
[2018-02-07 07:23] LABS: Appearance,Urine Clear (Clear); Bacteria,Urine Rare /hpf; Bilirubin,Urine Negative (Negative); Blood,Urine Negative (Negative); Color,Urine Colorless; Glucose,Urine (UA) Negative (Negative); Ketones,Urine Negative (Negative); Leukocyte Esterase,Urine Large (Negative); Mucus,Urine Rare /hpf; Nitrite,Urine Negative (Negative); Protein,Urine Trace (Negative); Specific Gravity,Urine 1.008 (1.001-1.035); Squamous Epithelial Cell,Urine 3 /hpf (0-4); Urobilinogen,Urine <2.0 mg/dL (<2.0); WBC,Urine 22 /hpf (0-5)
[2018-02-07 07:27] LABS: Basophils # (A) 0.1 k/uL (0-0.2); Basophils % (A) 1 %; Eosinophils # (A) 0.5 k/uL (0-0.7); Eosinophils % (A) 7 %; HCT 35.7 % (34.0-46.0); HGB 11.1 gm/dL (11.4-16.0); Lymphocytes # (A) 2.2 k/uL (1.0-4.8); Lymphocytes % (A) 30 %; MCH 29.3 pg (25.0-35.0); MCV 94.5 fL (80.0-100.0); Mean Platelet Volume 8.3; Monocytes # (A) 0.5 k/uL (0-1.0); Monocytes % (A) 7 %; Neutrophils # (A) 3.7 k/uL (1.3-7.7); Neutrophils % (A) 52 %; Platelet Count 224 k/uL (150-450); RBC 3.78 m/uL (3.80-5.40); RDW 15.3 % (11.5-15.5); WBC 7.1 k/uL (3.8-10.6)
[2018-02-07 07:38] LABS: Calcium 9.8 mg/dL (8.4-10.2); Magnesium 2.3 mg/dL (1.6-2.3); Phosphorus 4.9 mg/dL (2.5-4.5); Potassium 4.6 mmol/L (3.5-5.1); Uric Acid 5.4 mg/dL (3.7-7.4)
[2018-02-07 11:36] LABS: Iron Saturation 23.13 (12.00-45.00)
[2018-02-07 11:46] LABS: Vitamin D 25 Hydroxy 28.4 ng/mL (30.0-100.0)
[2018-02-07 12:42] LABS: Parathyroid Hormone Intact 221.3 pg/mL (14.0-72.0)
== END | disposition home or self-care (01) ==
LOC: LABWHC1 06:47
PROVIDERS: ATTEND Nurse Practitioner Family
DX: N39.0 Urinary tract infection, site not specified (principal); N18.5 Chronic kidney disease, stage 5; D63.1 Anemia in chronic kidney disease; M10.9 Gout, unspecified; N25.81 Secondary hyperparathyroidism of renal origin
CPT/HCPCS: 36415; 80048; 81001; 82306; 82728; 83540; 83550; 83735; 83970; 84100; 84550; 85025

== ENCOUNTER → 2018-04-14 | Outpatient (CLI) | payer MEDICARE ==
[2018-04-14 10:40] LABS: Basophils # (A) 0.1 k/uL (0-0.2); Basophils % (A) 1 %; Eosinophils # (A) 0.5 k/uL (0-0.7); Eosinophils % (A) 7 %; HCT 33.4 % (34.0-46.0); HGB 10.1 gm/dL (11.4-16.0); Hypochromasia Slight; Lymphocytes # (A) 1.5 k/uL (1.0-4.8); Lymphocytes % (A) 23 %; MCH 29.1 pg (25.0-35.0); MCHC 30.4 g/dL (31.0-37.0); MCV 95.9 fL (80.0-100.0); Mean Platelet Volume 8.3; Monocytes # (A) 0.4 k/uL (0-1.0); Monocytes % (A) 6 %; Neutrophils # (A) 4.1 k/uL (1.3-7.7); Neutrophils % (A) 62 %; Platelet Count 227 k/uL (150-450); RBC 3.48 m/uL (3.80-5.40); RDW 14.9 % (11.5-15.5); WBC 6.6 k/uL (3.8-10.6)
[2018-04-14 10:54] LABS: Calcium 9.8 mg/dL (8.4-10.2); Magnesium 2.4 mg/dL (1.6-2.3); Phosphorus 5.5 mg/dL (2.5-4.5); Uric Acid 5.1 mg/dL (3.7-7.4)
[2018-04-14 11:16] LABS: Appearance,Urine Clear (Clear); Bacteria,Urine Occasional /hpf; Bilirubin,Urine Negative (Negative); Blood,Urine Negative (Negative); Color,Urine Light Yellow; Glucose,Urine (UA) Negative (Negative); Ketones,Urine Negative (Negative); Leukocyte Esterase,Urine Moderate (Negative); Mucus,Urine Rare /hpf; Nitrite,Urine Negative (Negative); PH, Urine 5.5 (5.0-8.0); Protein,Urine Trace (Negative); RBC,Urine <1 /hpf (0-5); Specific Gravity,Urine 1.008 (1.001-1.035); Squamous Epithelial Cell,Urine <1 /hpf (0-4); Urobilinogen,Urine <2.0 mg/dL (<2.0); WBC,Urine 7 /hpf (0-5)
[2018-04-14 17:34] LABS: Vitamin D 25 Hydroxy 21.7 ng/mL (30.0-100.0)
== END | disposition home or self-care (01) ==
LOC: LABWHC1 09:17
PROVIDERS: ATTEND Nurse Practitioner Family
DX: M10.9 Gout, unspecified (principal); N25.81 Secondary hyperparathyroidism of renal origin; N18.5 Chronic kidney disease, stage 5; D63.1 Anemia in chronic kidney disease; N39.0 Urinary tract infection, site not specified
CPT/HCPCS: 36415; 80048; 81001; 82306; 82728; 83540; 83735; 83970; 84100; 84550; 85025

== ENCOUNTER → 2018-06-16 | Outpatient (CLI) | payer MEDICARE ==
[2018-06-16 08:32] LABS: Basophils # (A) 0.1 k/uL (0-0.2); Basophils % (A) 1 %; Eosinophils # (A) 0.5 k/uL (0-0.7); Eosinophils % (A) 9 %; HGB 10.9 gm/dL (11.4-16.0); Lymphocytes # (A) 1.6 k/uL (1.0-4.8); Lymphocytes % (A) 26 %; MCH 30.4 pg (25.0-35.0); MCHC 31.9 g/dL (31.0-37.0); MCV 95.3 fL (80.0-100.0); Mean Platelet Volume 8.1; Monocytes # (A) 0.4 k/uL (0-1.0); Monocytes % (A) 7 %; Neutrophils # (A) 3.3 k/uL (1.3-7.7); Neutrophils % (A) 54 %; Platelet Count 235 k/uL (150-450); RBC 3.57 m/uL (3.80-5.40); RDW 15.5 % (11.5-15.5); WBC 6.1 k/uL (3.8-10.6)
[2018-06-16 08:41] LABS: Appearance,Urine Clear (Clear); Bacteria,Urine Few /hpf; Bilirubin,Urine Negative (Negative); Blood,Urine Negative (Negative); Color,Urine Light Yellow; Glucose,Urine (UA) Negative (Negative); Ketones,Urine Negative (Negative); Leukocyte Esterase,Urine Moderate (Negative); Mucus,Urine Rare /hpf; Nitrite,Urine Negative (Negative); PH, Urine 5.5 (5.0-8.0); Protein,Urine 1+ (Negative); Specific Gravity,Urine 1.008 (1.001-1.035); Squamous Epithelial Cell,Urine 2 /hpf (0-4); Urobilinogen,Urine <2.0 mg/dL (<2.0); WBC,Urine 10 /hpf (0-5)
[2018-06-16 17:33] LABS: Parathyroid Hormone Intact 153.8 pg/mL (14.0-72.0)
[2018-06-16 18:42] LABS: Creatinine,Urine Random 52.9 mg/dL
[2018-06-16 18:58] LABS: Iron Saturation 25.38 (12.00-45.00)
[2018-06-16 19:03] LABS: Albumin 4.4 g/dL (3.80-4.90); Anion Gap 13.4 mmol/L (4.00-12.00); Carbon Dioxide 25.6 mmol/L (21.6-31.8); Magnesium 2.2 mg/dL (1.5-2.4); Phosphorus 4.7 mg/dL (2.4-5.1); Potassium 4.4 mmol/L (3.5-5.5); Uric Acid 5.7 mg/dL (2.9-7.7)
[2018-06-16 19:05] LABS: Vitamin D 25 Hydroxy 26.2 ng/mL (30.0-100.0)
[2018-06-16 19:40] LABS: Total Protein,Urine Random 37.2 mg/dL (0.0-13.5)
== END | disposition home or self-care (01) ==
LOC: LABWHC1 07:42
PROVIDERS: ATTEND Internal Medicine Nephrology
DX: N18.5 Chronic kidney disease, stage 5 (principal); D63.1 Anemia in chronic kidney disease; R80.9 Proteinuria, unspecified; E55.9 Vitamin D deficiency, unspecified; E21.3 Hyperparathyroidism, unspecified; M10.9 Gout, unspecified; N39.0 Urinary tract infection, site not specified
CPT/HCPCS: 36415; 80048; 81001; 82040; 82306; 82570; 82728; 83540; 83550; 83735; 83970; 84100; 84156; 84550; 85025

== ENCOUNTER → 2018-08-18 | Outpatient (CLI) | payer MEDICARE ==
[2018-08-18 10:43] LABS: Basophils # (A) 0.1 k/uL (0-0.2); Basophils % (A) 1 %; Eosinophils # (A) 0.4 k/uL (0-0.7); Eosinophils % (A) 6 %; HCT 36.1 % (34.0-46.0); HGB 11.3 gm/dL (11.4-16.0); Lymphocytes # (A) 1.3 k/uL (1.0-4.8); Lymphocytes % (A) 18 %; MCH 29.6 pg (25.0-35.0); MCHC 31.2 g/dL (31.0-37.0); MCV 94.7 fL (80.0-100.0); Mean Platelet Volume 8.8; Monocytes # (A) 0.6 k/uL (0-1.0); Monocytes % (A) 8 %; Neutrophils # (A) 4.9 k/uL (1.3-7.7); Neutrophils % (A) 66 %; Platelet Count 228 k/uL (150-450); RBC 3.81 m/uL (3.80-5.40); RDW 15.6 % (11.5-15.5); WBC 7.5 k/uL (3.8-10.6)
[2018-08-18 10:52] LABS: Appearance,Urine Cloudy (Clear); Bacteria,Urine Moderate /hpf; Bilirubin,Urine Negative (Negative); Blood,Urine Negative (Negative); Color,Urine Light Yellow; Glucose,Urine (UA) Trace (Negative); Hyaline Casts,Urine 1 /lpf (0-2); Ketones,Urine Negative (Negative); Leukocyte Esterase,Urine Trace (Negative); Mucus,Urine Rare /hpf; Nitrite,Urine Negative (Negative); PH, Urine 5.5 (5.0-8.0); Protein,Urine 1+ (Negative); RBC,Urine 2 /hpf (0-5); Specific Gravity,Urine 1.008 (1.001-1.035); Squamous Epithelial Cell,Urine 2 /hpf (0-4); Urobilinogen,Urine <2.0 mg/dL (<2.0); WBC,Urine 2 /hpf (0-5)
[2018-08-18 15:58] LABS: Parathyroid Hormone Intact 82.1 pg/mL (14.0-72.0)
[2018-08-18 16:33] LABS: Iron Saturation 23.3 (12.00-45.00)
[2018-08-18 16:42] LABS: Vitamin D 25 Hydroxy 19.6 ng/mL (30.0-100.0)
[2018-08-18 17:04] LABS: Albumin 4.5 g/dL (3.80-4.90)
[2018-08-18 17:05] LABS: Anion Gap 10.2 mmol/L (4.00-12.00); Calcium 10.1 mg/dL (8.7-10.3); Carbon Dioxide 27.8 mmol/L (21.6-31.8); Magnesium 2.3 mg/dL (1.5-2.4); Phosphorus 4.1 mg/dL (2.4-5.1); Potassium 4.4 mmol/L (3.5-5.5); Uric Acid 5.3 mg/dL (2.9-7.7)
[2018-08-18 17:47] LABS: Creatinine,Urine Random 46.8 mg/dL
[2018-08-18 19:06] LABS: Total Protein,Urine Random 49.5 mg/dL (0.0-13.5)
== END | disposition home or self-care (01) ==
LOC: LABWHC1 09:03
PROVIDERS: ATTEND Internal Medicine Nephrology
DX: N39.0 Urinary tract infection, site not specified (principal); D63.1 Anemia in chronic kidney disease; N18.5 Chronic kidney disease, stage 5; N25.81 Secondary hyperparathyroidism of renal origin; M10.9 Gout, unspecified; R80.9 Proteinuria, unspecified
CPT/HCPCS: 36415; 80048; 81001; 82040; 82306; 82570; 82728; 83540; 83550; 83735; 83970; 84100; 84156; 84550; 85025

== ENCOUNTER → 2018-11-24 | Outpatient (CLI) | payer MEDICARE ==
[2018-11-24 08:01] LABS: Basophils # (A) 0.1 k/uL (0-0.2); Basophils % (A) 1 %; Eosinophils # (A) 0.5 k/uL (0-0.7); Eosinophils % (A) 8 %; HCT 34.1 % (34.0-46.0); HGB 10.7 gm/dL (11.4-16.0); Lymphocytes # (A) 1.4 k/uL (1.0-4.8); Lymphocytes % (A) 23 %; MCH 30.1 pg (25.0-35.0); MCHC 31.4 g/dL (31.0-37.0); MCV 95.8 fL (80.0-100.0); Mean Platelet Volume 8.8; Monocytes # (A) 0.5 k/uL (0-1.0); Monocytes % (A) 7 %; Neutrophils # (A) 3.5 k/uL (1.3-7.7); Neutrophils % (A) 57 %; Platelet Count 223 k/uL (150-450); RBC 3.56 m/uL (3.80-5.40); RDW 15.5 % (11.5-15.5); WBC 6.1 k/uL (3.8-10.6)
[2018-11-24 08:10] LABS: Appearance,Urine Cloudy (Clear); Bacteria,Urine Many /hpf; Bilirubin,Urine Negative (Negative); Blood,Urine Trace (Negative); Color,Urine Light Yellow; Glucose,Urine (UA) Negative (Negative); Ketones,Urine Negative (Negative); Leukocyte Esterase,Urine Large (Negative); Mucus,Urine Rare /hpf; Nitrite,Urine Negative (Negative); PH, Urine 5.5 (5.0-8.0); Protein,Urine 1+ (Negative); RBC,Urine 5 /hpf (0-5); Specific Gravity,Urine 1.014 (1.001-1.035); Squamous Epithelial Cell,Urine 8 /hpf (0-4); Urobilinogen,Urine <2.0 mg/dL (<2.0); WBC,Urine 78 /hpf (0-5)
[2018-11-24 16:21] LABS: Parathyroid Hormone Intact 114.1 pg/mL (14.0-72.0)
[2018-11-24 16:41] LABS: Iron Saturation 23.85 (12.00-45.00); Rheumatoid Factor 11 IU/mL (0-15)
[2018-11-24 16:50] LABS: Albumin 4.3 g/dL (3.80-4.90); Anion Gap 10.5 mmol/L (4.00-12.00); Calcium 9.4 mg/dL (8.7-10.3); Carbon Dioxide 24.5 mmol/L (21.6-31.8); Magnesium 2.4 mg/dL (1.5-2.4); Phosphorus 4.7 mg/dL (2.4-5.1); Potassium 3.8 mmol/L (3.5-5.5); Uric Acid 5.3 mg/dL (2.9-7.7)
[2018-11-24 16:51] LABS: Vitamin D 25 Hydroxy 25.4 ng/mL (30.0-100.0)
[2018-11-24 16:57] LABS: Hemoglobin A1C 7.7 % (4.0-6.0)
[2018-11-24 18:21] LABS: Creatinine,Urine Random 73.1 mg/dL
[2018-11-24 19:20] LABS: Total Protein,Urine Random 54.2 mg/dL (0.0-13.5)
== END | disposition home or self-care (01) ==
LOC: LABWHC1 07:21
PROVIDERS: ATTEND Nurse Practitioner Family
DX: M10.9 Gout, unspecified (principal); N39.0 Urinary tract infection, site not specified; R80.9 Proteinuria, unspecified; N18.5 Chronic kidney disease, stage 5; D63.8 Anemia in other chronic diseases classified elsewhere; N25.81 Secondary hyperparathyroidism of renal origin; E11.22 Type 2 diabetes mellitus with diabetic chronic kidney disease
CPT/HCPCS: 36415; 80048; 81001; 82040; 82306; 82570; 82728; 83036; 83540; 83550; 83735; 83970; 84100; 84156; 84550; 85025; 86038; 86431

== ENCOUNTER → 2018-11-29 | Outpatient (CLI) | payer MEDICARE ==
[2018-11-29 11:06] VITALS: BP 153/69; PULSE 78; RESP 18; TEMP 98; BMI 31.6
--- NOTE | 2018-11-29 11:46 | P.HPOB ---
History of Present Illness H&P Date: 11/29/18 Chief Complaint: The patient is here for her routine gynecologic exam and ma mmogram. This is a 73-year-old G to P2 with an LMP of 2002. The patient is without gynecologic complaints and denies any postmenopausal bleeding. Review of Systems The patient has lost about 2 pounds over the last year. She denies respiratory, cardiac and G.I. problems. She denies maltreatment. She did fall once over the past year with no significant injury. : she denies any significant problems with urinary leakage. 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 Osteopenia. Type II diabetes. Chronic renal failure. 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 She had 2 spontaneous abortions and two vaginal deliveries. History of Any Multi-Drug Resistant Organisms: None Reported Past Surgical History: Adenoidectomy, Appendectomy, Tonsillectomy Additional Past Surgical History / Comment(s): fatty tumor removed; hiatal hernia repair. Had a colonoscopy 2013. Left antecubital fistula placement for possible dialysis. Past Anesthesia/Blood Transfusion Reactions: No Reported Reaction Past Psychological History: No Psychological Hx Reported Smoking Status: Never smoker Past Alcohol Use History: Rare Past Drug Use History: None Reported Additional History: She is a and is not sexually active. She is retired. - Past Family History Mother Family Medical History: Cancer Additional Family Medical History / Comment(s): Breast cancer. Grandmother had diabetes. Medications and Allergies Home Medications Medication Instructions Recorded Confirmed Type Simvastatin [Zocor] 40 mg PO HS 11/25/13 11/29/18 History amLODIPine BESYLATE [Norvasc] 10 mg PO DAILY 11/25/13 11/29/18 History Cinacalcet [Sensipar] 30 mg PO DIRECTED 12/01/16 11/29/18 History Insulin Aspart [NovoLOG Flexpen] 16 units SQ AC-TID 12/01/16 11/29/18 History Spironolactone [Aldactone] 12.5 mg PO DAILY 12/01/16 11/29/18 History Allopurinol [Zyloprim] 300 mg PO DAILY 11/02/17 11/29/18 History Insulin Glargine [Lantus] 35 units HS 11/02/17 11/29/18 History Furosemide [Lasix] 100 mg PO DAILY 05/11/18 11/29/18 History Allergies Allergy/AdvReac Type Severity Reaction Status Date / Time adhesive Allergy Rash/Hives Verified 11/29/18 11:07 codeine Allergy Rash/Hives Verified 11/29/18 11:07 erythromycin base Allergy Rash/Hives Verified 11/29/18 11:07 [Erythromycin Base] Penicillins Allergy Swelling Unverified 11/29/18 11:07 Exam Vital Signs Temp Pulse Resp BP Pulse Ox 11/29/18 11:00 98.0 F 78 18 153/69 97 Intake and Output 11/28/18 11/29/18 11/29/18 22:59 06:59 14:59 Other: Weight 81.193 kg Height 5'3", weight 179 pounds, BMI 31.7. This is a well-developed well-nourished heavyset white female who is alert and oriented times 3 in no acute distress. HEENT: Within normal limits. NECK: Supple without mass or thyromegaly. CHEST AND LUNGS: Clear to auscultation. HEART: Regular rate and rhythm. BREASTS: Are without mass or discharge. AXILLARY EXAM: Negative for adenopathy. BACK: Negative for CVA tenderness. ABDOMEN: Soft, obese, nontender, without palpable masses. PELVIC EXAM: Normal external genitalia with mild to moderate atrophy. Cervix and vagina appear normal with mild to moderate atrophy. There is no unusual discharge. There is a stable grade 2 rectocele and a grade one cystocele. The uterus is midposition, nongravid size and nontender. There are no palpable adnexal masses or tenderness. RECTAL EXAM: rectovaginal exam is negative for mass or tenderness and is negative for occult blood. EXTREMITIES: Nontender. IMPRESSION: 1. 73-year-old menopausal female with a stable asymptomatic grade 2 rectocele and otherwise normal gynecologic exam. 2. History of osteopenia. 3. History of multiple medical problems. 4. No history of cervical problems with adequate screening. PLAN: 1. Pap smears have been discontinued because of her age and history of adequate screening. 2. Self breast awareness was discussed with the patient. 3. Screening mammogram will be done today. 4. Osteoporosis prevention was discussed. I have stressed the importance of adequate calcium, vitamin D and regular exercise. Recommended amounts of calcium and vitamin D were also discussed. Bone density testing will be done today. 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 She'd states she does not get flu shots. I have recommended that she consider this in the fall. 6.She was advised to return in one year for her annual well woman exam.
--- NOTE | 2018-11-29 13:58 | BD ---
EXAMINATION TYPE: Axial Bone Density DATE OF EXAM: 11/29/2018 COMPARISON: 07.31.2015 CLINICAL HISTORY: 73 YR OLD FEMALE.....ICD-10 CODE: Z78.0 POST MENOPAUSAL Height: 59.8 Weight: 177 FRAX RISK QUESTIONS: Secondary Osteoporosis: YES 1. Type 1 Diabetes: YES RISK FACTORS HISTORY OF: Diet low in dairy products/other sources of calcium: YES Postmenopausal woman: YES AT 57 YR OLD Take estrogen and/or progesterone medications: ONLY BCP FOR 4 YRS IN PAST Lost more than 2 inches in height since high school: YES Frequent falls: UNSTEADY, Poor Health: RENAL, MEDICATIONS: Additional Medications: SENSIPAR, BP MEDS, INSULIN, STATIN FOR CHOLESTEROL, , Additional History: RENAL TROUBLE, LOW PHOSPHORUS AND CA DIET, HYPERCALCEMIA, HYPERTENSION, CHOLES TEROL EXAM MEASUREMENTS: Bone mineral densitometry was performed using the [employer] System. Bone mineral density as measured about the Lumbar spine is: ----- L1-L4(G/cm2): 1.075 T Score Values are as follows: ----- L1: -1.1 ----- L2: -1.7 ----- L3: -1.2 ----- L4: 0.1 ----- L1-L4: -0.9 Bone mineral density has: Decreased -3.0% since study of: 07.31.2015 Bone mineral density about the R hip (g/cm2): 0.863 Bone mineral density about the L hip (g/cm2): 1.000 T Score values are as follows: -----R Neck: -1.0 -----L Neck: -0.2 -----R Total: -1.1 -----L Total: -0.1 Bone mineral density has: Decreased -7.6% since study of: 07.31.2015 FRAX%s: THERE IS A 8.3% CHANCE FOR A MAJOR OSTEOPOROTIC FX AND A 0.9% FOR HIP......PROBABILITY FOR FX IN 10 YRS TIME IMPRESSION: Osteopenia (T Score between -2.5 and -1). There is slightly increased risk of fracture and the patient may be considered for treatment. Re-Screen 2-5 years. NOTE: T-SCORE=SD OF THE YOUNG ADULT MEAN.
--- NOTE | 2018-11-30 10:17 | MM ---
Reason for exam: screening (asymptomatic). Last mammogram was performed 1 year and 1 month ago. History: Patient is postmenopausal. Family history of breast cancer in mother at age 63. Took hormonal contraceptives for 4 years beginning at age 22. Physical Findings: A clinical breast exam by your physician is recommended on an annual basis and results should be correlated with mammographic findings. MG 3D Screening Mammo W/Cad Bilateral CC and MLO view(s) were taken. Prior study comparison: November 02, 2017, bilateral MG 3d screening mammo w/cad. September 21, 2016, right breast MG 3d work up w/cad RT. There are scattered fibroglandular densities. No suspicious abnormality. No significant changes when compared with prior studies. ASSESSMENT: Negative, BI-RAD 1 RECOMMENDATION: Routine screening mammogram of both breasts in 1 year.
== END | disposition home or self-care (01) ==
LOC: WWCWWP 10:46
PROVIDERS: ATTEND Obstetrics & Gynecology
DX: Z12.31 Encounter for screening mammogram for malignant neoplasm of breast (principal); M85.80 Other specified disorders of bone density and structure, unspecified site; Z78.0 Asymptomatic menopausal state
CPT/HCPCS: 77063; 77067; 77080

== ENCOUNTER → 2018-12-30 | Outpatient (CLI) | payer MEDICARE ==
[2018-12-30 08:59] LABS: Basophils % (A) 1 %; Eosinophils # (A) 0.5 k/uL (0-0.7); Eosinophils % (A) 6 %; HCT 33.5 % (34.0-46.0); HGB 10.7 gm/dL (11.4-16.0); Lymphocytes # (A) 1.4 k/uL (1.0-4.8); Lymphocytes % (A) 18 %; MCH 29.9 pg (25.0-35.0); MCHC 31.8 g/dL (31.0-37.0); Monocytes # (A) 0.6 k/uL (0-1.0); Monocytes % (A) 8 %; Neutrophils # (A) 4.8 k/uL (1.3-7.7); Neutrophils % (A) 65 %; Platelet Count 219 k/uL (150-450); RBC 3.56 m/uL (3.80-5.40); RDW 15.8 % (11.5-15.5); WBC 7.4 k/uL (3.8-10.6)
[2018-12-30 09:10] LABS: Appearance,Urine Clear (Clear); Bacteria,Urine Moderate /hpf; Bilirubin,Urine Negative (Negative); Blood,Urine Negative (Negative); Color,Urine Light Yellow; Glucose,Urine (UA) Negative (Negative); Ketones,Urine Negative (Negative); Leukocyte Esterase,Urine Moderate (Negative); Mucus,Urine Rare /hpf; Nitrite,Urine Negative (Negative); Protein,Urine 1+ (Negative); RBC,Urine 1 /hpf (0-5); Specific Gravity,Urine 1.007 (1.001-1.035); Squamous Epithelial Cell,Urine 3 /hpf (0-4); Urobilinogen,Urine <2.0 mg/dL (<2.0); WBC,Urine 10 /hpf (0-5)
[2018-12-30 17:10] LABS: Iron Saturation 18.73 (12.00-45.00)
[2018-12-30 17:17] LABS: African American GFR (CKD) 17.4 (60.0-200.0); Albumin 4.4 g/dL (3.80-4.90); Anion Gap 11.5 mmol/L (4.00-12.00); Calcium 9.9 mg/dL (8.7-10.3); Carbon Dioxide 25.5 mmol/L (21.6-31.8); Magnesium 2.3 mg/dL (1.5-2.4); Phosphorus 3.9 mg/dL (2.4-5.1); Potassium 3.9 mmol/L (3.5-5.5); Uric Acid 5.3 mg/dL (2.9-7.7)
[2018-12-30 17:18] LABS: Vitamin D 25 Hydroxy 23.2 ng/mL (30.0-100.0)
[2018-12-30 18:28] LABS: Parathyroid Hormone Intact 75.9 pg/mL (14.0-72.0)
[2018-12-30 18:59] LABS: Total Protein,Urine Random 36.4 mg/dL (0.0-13.5)
== END | disposition home or self-care (01) ==
LOC: LABWHC1 08:09
PROVIDERS: ATTEND Internal Medicine Nephrology
DX: E55.9 Vitamin D deficiency, unspecified (principal); N25.81 Secondary hyperparathyroidism of renal origin; M10.9 Gout, unspecified; N39.0 Urinary tract infection, site not specified; N18.5 Chronic kidney disease, stage 5; D63.1 Anemia in chronic kidney disease
CPT/HCPCS: 36415; 80048; 81001; 82040; 82306; 82570; 82728; 83540; 83550; 83735; 83970; 84100; 84156; 84550; 85025; 87086

== ENCOUNTER → 2019-03-02 | Outpatient (CLI) | payer MEDICARE ==
[2019-03-02 08:35] LABS: Basophils % (A) 1 %; Eosinophils # (A) 0.4 k/uL (0-0.7); Eosinophils % (A) 6 %; HCT 36.7 % (34.0-46.0); HGB 11.7 gm/dL (11.4-16.0); Lymphocytes # (A) 1.6 k/uL (1.0-4.8); Lymphocytes % (A) 22 %; MCHC 31.8 g/dL (31.0-37.0); MCV 97.4 fL (80.0-100.0); Mean Platelet Volume 8.8; Monocytes # (A) 0.5 k/uL (0-1.0); Monocytes % (A) 8 %; Neutrophils # (A) 4.4 k/uL (1.3-7.7); Neutrophils % (A) 61 %; Platelet Count 222 k/uL (150-450); RBC 3.77 m/uL (3.80-5.40); RDW 15.5 % (11.5-15.5); WBC 7.1 k/uL (3.8-10.6)
[2019-03-02 16:31] LABS: African American GFR (CKD) 18.1 (60.0-200.0); Albumin 4.5 g/dL (3.80-4.90); BUN/Creat Ratio 21.72 Ratio (12.00-20.00); Phosphorus 4.7 mg/dL (2.4-5.1); Potassium 3.9 mmol/L (3.5-5.5)
[2019-03-02 16:40] LABS: Vitamin D 25 Hydroxy 19.7 ng/mL (30.0-100.0)
[2019-03-02 16:42] LABS: Iron Saturation 31.27 (12.00-45.00)
== END ==
LOC: LABWHC1 08:12
PROVIDERS: ATTEND Nurse Practitioner Family
DX: N18.5 Chronic kidney disease, stage 5 (principal); E83.52 Hypercalcemia; N64.9 Disorder of breast, unspecified; E55.9 Vitamin D deficiency, unspecified
CPT/HCPCS: 36415; 80069; 82306; 82728; 83540; 83550; 83970; 85025

== ENCOUNTER → 2019-03-16 | Outpatient (CLI) | payer MEDICARE | END | disposition home or self-care (01) | LOC: LABWHC1 07:52 | PROVIDERS: ATTEND Internal Medicine Nephrology | DX: N18.5 Chronic kidney disease, stage 5 (principal) | CPT/HCPCS: 36415 ==

== ENCOUNTER → 2019-05-03 | Outpatient (CLI) | payer MEDICARE ==
[2019-05-03 08:15] LABS: Basophils # (A) 0.1 k/uL (0-0.2); Basophils % (A) 1 %; Eosinophils # (A) 0.5 k/uL (0-0.7); Eosinophils % (A) 8 %; HCT 35.6 % (34.0-46.0); HGB 11.3 gm/dL (11.4-16.0); Lymphocytes # (A) 1.6 k/uL (1.0-4.8); Lymphocytes % (A) 23 %; MCH 31.3 pg (25.0-35.0); MCHC 31.7 g/dL (31.0-37.0); MCV 98.6 fL (80.0-100.0); Mean Platelet Volume 7.4; Monocytes # (A) 0.4 k/uL (0-1.0); Monocytes % (A) 6 %; Neutrophils # (A) 4.1 k/uL (1.3-7.7); Neutrophils % (A) 59 %; Platelet Count 252 k/uL (150-450); RBC 3.61 m/uL (3.80-5.40); RDW 14.6 % (11.5-15.5)
[2019-05-03 12:08] LABS: % Iron Saturation 23.57 (12.00-45.00); African American GFR (CKD) 16.1 (60.0-200.0); Albumin 4.5 g/dL (3.80-4.90); Anion Gap 10.5 mmol/L (4.00-12.00); BUN/Creat Ratio 20.31 Ratio (12.00-20.00); Carbon Dioxide 27.5 mmol/L (21.6-31.8); Magnesium 2.3 mg/dL (1.5-2.4); Phosphorus 4.4 mg/dL (2.4-5.1); Potassium 4.6 mmol/L (3.5-5.5)
[2019-05-03 12:27] LABS: Ferritin 403.6 ng/mL (10.0-291.0)
== END | disposition home or self-care (01) ==
LOC: LABWHC1 07:29
PROVIDERS: ATTEND Nurse Practitioner Family
DX: D64.9 Anemia, unspecified (principal); N18.5 Chronic kidney disease, stage 5; E83.52 Hypercalcemia
CPT/HCPCS: 36415; 80069; 82306; 82728; 83540; 83550; 83735; 83970; 85025

== ENCOUNTER 2019-06-06 16:12 | Emergency (ER) | payer MEDICARE ==
[2019-06-06 16:42] VITALS: RESP 16; TEMP 97.9
--- NOTE | 2019-06-06 17:19 | XR ---
EXAMINATION TYPE: XR KUB DATE OF EXAM: 06/06/2019 COMPARISON: NONE HISTORY: Constipation. Abdominal pain TECHNIQUE: 2 views upright FINDINGS: There is no sign of intestinal obstruction or pneumoperitoneum. Fecal pattern is normal. Th ere are multiple coils over the pelvis. There is no evidence of a mass. Lung bases are clear. IMPRESSION: Nonacute abdomen. No significant constipation seen.
--- NOTE | 2019-06-06 17:33 | ED ---
General Adult HPI - General Chief complaint: Abdominal Pain Stated complaint: Constipation Time Seen by Provider: 06/06/19 16:44 Source: patient, RN notes reviewed, old records reviewed Mode of arrival: ambulatory Limitations: no limitations - History of Present Illness Initial comments: 73-year-old female presents with generalized abdominal pain and constipation. Patient states she has not had a bowel movement in 5 days. 7 days ago she had a dental procedure and was instructed to have a soft bland diet. She is followed his diet but has developed this constipation. She denies nausea vomiting. Denies fever or chills. Pain is predominantly crampy in nature predominantly right sided. - Related Data Home Medications Medication Instructions Recorded Confirmed Simvastatin [Zocor] 40 mg PO HS 11/25/13 01/24/19 amLODIPine BESYLATE [Norvasc] 10 mg PO DAILY 11/25/13 01/24/19 Cinacalcet [Sensipar] 30 mg PO DIRECTED 12/01/16 01/24/19 Spironolactone [Aldactone] 12.5 mg PO DAILY 12/01/16 01/24/19 Allopurinol [Zyloprim] 300 mg PO DAILY 11/02/17 01/24/19 Insulin Glargine [Lantus] 35 units HS 11/02/17 01/24/19 Furosemide [Lasix] 100 mg PO DAILY 05/11/18 01/24/19 INSULIN LISPRO (humaLOG) [humaLOG] 16 units SQ TID 01/17/19 01/24/19 Previous Rx's Medication Instructions Recorded Docusate [Colace] 100 mg PO BID #60 capsule 06/06/19 Polyethylene Glycol 3350 [Miralax] 17 gm PO DAILY #527 gm 06/06/19 Allergies Allergy/AdvReac Type Severity Reaction Status Date / Time adhesive Allergy Rash/Hives Verified 06/06/19 16:42 codeine Allergy Rash/Hives Verified 06/06/19 16:42 erythromycin base Allergy Rash/Hives Verified 06/06/19 16:42 [Erythromycin Base] Penicillins Allergy Swelling Verified 06/06/19 16:42 Review of Systems ROS Statement: Those systems with pertinent positive or pertinent negative responses have been documented in the HPI. ROS Other: All systems not noted in ROS Statement are negative. 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 Osteopenia. Type II diabetes. Chronic renal failure. 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 She had 2 spontaneous abortions and two vaginal deliveries. History of Any Multi-Drug Resistant Organisms: None Reported Past Surgical History: Adenoidectomy, Appendectomy, Tonsillectomy Additional Past Surgical History / Comment(s): fatty tumor removed; hiatal hernia repair. Had a colonoscopy 2013. Left antecubital fistula placement for possible dialysis. Past Anesthesia/Blood Transfusion Reactions: No Reported Reaction Past Psychological History: No Psychological Hx Reported Smoking Status: Never smoker Past Alcohol Use History: None Reported Past Drug Use History: None Reported - Past Family History Mother Family Medical History: Cancer Additional Family Medical History / Comment(s): Breast cancer. Grandmother had diabetes. General Exam Limitations: no limitations General appearance: alert, in no apparent distress Head exam: Present: atraumatic, normocephalic Eye exam: Present: normal appearance, PERRL ENT exam: Present: normal exam Neck exam: Present: normal inspection. Absent: tenderness, meningismus Respiratory exam: Present: normal lung sounds bilaterally. Absent: respiratory distress, wheezes Cardiovascular Exam: Present: regular rate, normal rhythm GI/Abdominal exam: Present: soft, tenderness (Mild generalized tenderness). Absent: distended, guarding, rebound Extremities exam: Present: normal inspection, normal capillary refill Neurological exam: Present: alert, oriented X3, CN II-XII intact. Absent: motor sensory deficit Psychiatric exam: Present: normal affect, normal mood Skin exam: Present: warm, dry, intact. Absent: cyanosis, diaphoretic Course Vital Signs 06/06/19 16:39 Temperature 97.9 F Pulse Rate 79 Respiratory 16 Rate Blood Pressure 147/71 O2 Sat by Pulse 98 Oximetry Medical Decision Making - Medical Decision Making 73-year-old female, well-appearing with stable vitals presenting with 5 days of no bowel movement and mild generalized abdominal pain. On exam patient has m inimal tenderness, no rebound or guarding, no distention. X-rays performed which is negative for obstruction, there is moderate stool burden relative: Seen on x-ray. Attempt to initially place an enema was unsuccessful, patient was disimpacted with a large stool ball in the rectal vault. Enema was administered with large stool output. Patient feeling better. She will be prescribed Colace and MiraLAX. She will return with worsening or changing symptoms. Disposition Clinical Impression: Abdominal pain Disposition: HOME SELF-CARE Condition: Good Instructions (If sedation given, give patient instructions): Abdominal Pain (ED), High Fiber Diet (ED), Constipation (ED) Prescriptions: Docusate [Colace] 100 mg PO BID #60 capsule Polyethylene Glycol 3350 [Miralax] 17 gm PO DAILY #527 gm Is patient prescribed a controlled substance at d/c from ED?: No Referrals: Arthur Stubbs MD [Primary Care Provider] - 1-2 days Time of Disposition: 19:18
[2019-06-06] MEDS: MAGNESIUM CITRATE 296 ML BOTTLE PO ONE ×2 (19:47→19:59)
[2019-06-06 19:52] VITALS: BP 154/74; PULSE 68
== END 2019-06-06 19:59 | disposition home or self-care (01) ==
LOC: EC 16:12
DX: R10.84 Generalized abdominal pain (principal); K59.00 Constipation, unspecified; I12.9 Hypertensive chronic kidney disease with stage 1 through stage 4 chronic kidney disease, or unspecified chronic kidney disease; N18.9 Chronic kidney disease, unspecified; E11.22 Type 2 diabetes mellitus with diabetic chronic kidney disease; E78.5 Hyperlipidemia, unspecified; Z88.0 Allergy status to penicillin; Z88.1 Allergy status to other antibiotic agents; Z88.5 Allergy status to narcotic agent; Z91.048 Other nonmedicinal substance allergy status; Z79.4 Long term (current) use of insulin; Z79.899 Other long term (current) drug therapy; Z90.49 Acquired absence of other specified parts of digestive tract
CPT/HCPCS: 74018; 99284

== ENCOUNTER → 2019-06-15 | Outpatient (CLI) | payer MEDICARE ==
[2019-06-15 08:52] LABS: Basophils # (A) 0.1 k/uL (0-0.2); Basophils % (A) 1 %; Eosinophils # (A) 0.4 k/uL (0-0.7); Eosinophils % (A) 5 %; HCT 33.7 % (34.0-46.0); HGB 10.9 gm/dL (11.4-16.0); Lymphocytes # (A) 1.4 k/uL (1.0-4.8); Lymphocytes % (A) 20 %; MCH 31.6 pg (25.0-35.0); MCHC 32.4 g/dL (31.0-37.0); MCV 97.4 fL (80.0-100.0); Mean Platelet Volume 7.4; Monocytes # (A) 0.5 k/uL (0-1.0); Monocytes % (A) 6 %; Neutrophils # (A) 4.7 k/uL (1.3-7.7); Neutrophils % (A) 66 %; Platelet Count 240 k/uL (150-450); RBC 3.46 m/uL (3.80-5.40); RDW 14.3 % (11.5-15.5); WBC 7.2 k/uL (3.8-10.6)
[2019-06-15 17:08] LABS: % Iron Saturation 25.94 (12.00-45.00); African American GFR (CKD) 17.4 (60.0-200.0); Albumin 4.2 g/dL (3.80-4.90); Anion Gap 11.6 mmol/L (4.00-12.00); BUN/Creat Ratio 27.33 Ratio (12.00-20.00); Calcium 9.5 mg/dL (8.7-10.3); Carbon Dioxide 24.4 mmol/L (21.6-31.8); Phosphorus 5.3 mg/dL (2.4-5.1); Potassium 3.8 mmol/L (3.5-5.5); Uric Acid 5.5 mg/dL (2.9-7.7)
[2019-06-15 17:55] LABS: Ferritin 530.1 ng/mL (10.0-291.0)
== END | disposition home or self-care (01) ==
LOC: LABWHC1 08:08
PROVIDERS: ATTEND Nurse Practitioner Family
DX: N18.5 Chronic kidney disease, stage 5 (principal); D63.1 Anemia in chronic kidney disease; E83.52 Hypercalcemia; M10.9 Gout, unspecified
CPT/HCPCS: 36415; 80069; 82728; 83540; 83550; 83970; 84550; 85025

== ENCOUNTER → 2019-09-14 | Outpatient (CLI) | payer MEDICARE ==
[2019-09-14 09:32] LABS: Basophils % (A) 1 %; Eosinophils # (A) 0.4 k/uL (0-0.7); Eosinophils % (A) 6 %; HCT 35.3 % (34.0-46.0); HGB 11.1 gm/dL (11.4-16.0); Lymphocytes # (A) 1.4 k/uL (1.0-4.8); Lymphocytes % (A) 22 %; MCH 30.6 pg (25.0-35.0); MCHC 31.4 g/dL (31.0-37.0); MCV 97.2 fL (80.0-100.0); Mean Platelet Volume 9.1; Monocytes # (A) 0.4 k/uL (0-1.0); Monocytes % (A) 6 %; Neutrophils # (A) 4.2 k/uL (1.3-7.7); Neutrophils % (A) 63 %; Platelet Count 237 k/uL (150-450); RBC 3.63 m/uL (3.80-5.40); RDW 14.8 % (11.5-15.5); WBC 6.7 k/uL (3.8-10.6)
[2019-09-14 10:06] LABS: Protein/Creatinine Ratio,Urine 2.215
[2019-09-14 12:04] LABS: Appearance,Urine Clear (Clear); Bacteria,Urine Moderate /hpf; Bilirubin,Urine Negative (Negative); Blood,Urine Trace (Negative); Color,Urine Colorless; Glucose,Urine (UA) Negative (Negative); Hyaline Casts,Urine 1 /lpf (0-2); Ketones,Urine Negative (Negative); Leukocyte Esterase,Urine Large (Negative); Mucus,Urine Rare /hpf; Nitrite,Urine Negative (Negative); Protein,Urine 1+ (Negative); RBC,Urine 3 /hpf (0-5); Squamous Epithelial Cell,Urine 4 /hpf (0-4); Urobilinogen,Urine <2.0 mg/dL (<2.0); WBC,Urine 21 /hpf (0-5)
[2019-09-14 17:22] LABS: % Iron Saturation 19.85 (12.00-45.00); African American GFR (CKD) 19.6 (60.0-200.0); Albumin 4.7 g/dL (3.80-4.90); Anion Gap 9.9 mmol/L (4.00-12.00); BUN/Creat Ratio 22.22 Ratio (12.00-20.00); Carbon Dioxide 28.1 mmol/L (21.6-31.8); Magnesium 2.5 mg/dL (1.5-2.4); Non-African American GFR(CKD) 16.9 (60.0-200.0); Phosphorus 4.1 mg/dL (2.4-5.1); Potassium 4.6 mmol/L (3.5-5.5); Uric Acid 4.8 mg/dL (2.9-7.7)
[2019-09-14 17:47] LABS: Ferritin 346.8 ng/mL (10.0-291.0)
== END | disposition home or self-care (01) ==
LOC: LABWHC1 08:21
PROVIDERS: ATTEND Internal Medicine Nephrology
DX: N18.5 Chronic kidney disease, stage 5 (principal); D63.1 Anemia in chronic kidney disease; E55.9 Vitamin D deficiency, unspecified; N25.81 Secondary hyperparathyroidism of renal origin; N39.0 Urinary tract infection, site not specified; M10.9 Gout, unspecified; R80.9 Proteinuria, unspecified
CPT/HCPCS: 36415; 80048; 81001; 82040; 82306; 82570; 82728; 83540; 83550; 83735; 83970; 84100; 84156; 84550; 85025

== ENCOUNTER → 2019-12-27 | Outpatient (CLI) | payer MEDICARE ==
[2019-12-27 10:30] LABS: Basophils # (A) 0.1 k/uL (0-0.2); Basophils % (A) 1 %; Eosinophils # (A) 0.4 k/uL (0-0.7); Eosinophils % (A) 6 %; HCT 34.7 % (34.0-46.0); HGB 11.4 gm/dL (11.4-16.0); Lymphocytes # (A) 1.4 k/uL (1.0-4.8); Lymphocytes % (A) 19 %; MCH 32.2 pg (25.0-35.0); MCHC 32.8 g/dL (31.0-37.0); MCV 98.4 fL (80.0-100.0); Macrocytosis Slight; Mean Platelet Volume 8.8; Monocytes # (A) 0.5 k/uL (0-1.0); Monocytes % (A) 6 %; Neutrophils # (A) 4.7 k/uL (1.3-7.7); Neutrophils % (A) 65 %; Platelet Count 220 k/uL (150-450); RBC 3.52 m/uL (3.80-5.40); RDW 15.1 % (11.5-15.5); WBC 7.2 k/uL (3.8-10.6)
[2019-12-27 10:39] LABS: Appearance,Urine Clear (Clear); Bacteria,Urine Moderate /hpf; Bilirubin,Urine Negative (Negative); Blood,Urine Trace (Negative); Color,Urine Light Yellow; Glucose,Urine (UA) Trace (Negative); Ketones,Urine Negative (Negative); Leukocyte Esterase,Urine Moderate (Negative); Mucus,Urine Rare /hpf; Nitrite,Urine Negative (Negative); PH, Urine 5.5 (5.0-8.0); Protein,Urine 1+ (Negative); RBC,Urine 1 /hpf (0-5); Squamous Epithelial Cell,Urine 1 /hpf (0-4); Urobilinogen,Urine <2.0 mg/dL (<2.0); WBC,Urine 14 /hpf (0-5)
[2019-12-27 10:52] LABS: Protein/Creatinine Ratio,Urine 1.903
[2019-12-27 18:20] LABS: Hemoglobin A1C 7.1 % (4.0-6.0)
[2019-12-27 18:41] LABS: % Iron Saturation 26.62 (12.00-45.00); African American GFR (CKD) 16.6 (60.0-200.0); Albumin 4.5 g/dL (3.80-4.90); Anion Gap 13.6 mmol/L (4.00-12.00); BUN/Creat Ratio 25.48 Ratio (12.00-20.00); Calcium 9.8 mg/dL (8.7-10.3); Carbon Dioxide 25.4 mmol/L (21.6-31.8); Magnesium 2.4 mg/dL (1.5-2.4); Non-African American GFR(CKD) 14.3 (60.0-200.0); Phosphorus 5.2 mg/dL (2.4-5.1); Potassium 4.6 mmol/L (3.5-5.5); Uric Acid 5.5 mg/dL (2.9-7.7)
== END | disposition home or self-care (01) ==
LOC: LABWHC1 09:11
PROVIDERS: ATTEND Nurse Practitioner Family
DX: E55.9 Vitamin D deficiency, unspecified (principal); N25.81 Secondary hyperparathyroidism of renal origin; M10.9 Gout, unspecified; N39.0 Urinary tract infection, site not specified; N18.5 Chronic kidney disease, stage 5; D63.1 Anemia in chronic kidney disease; E11.22 Type 2 diabetes mellitus with diabetic chronic kidney disease; R80.9 Proteinuria, unspecified
CPT/HCPCS: 36415; 80048; 81001; 82040; 82306; 82570; 82728; 83036; 83540; 83550; 83735; 83970; 84100; 84156; 84550; 85025

== ENCOUNTER → 2020-04-11 | Outpatient (CLI) | payer MEDICARE ==
[2020-04-11 11:52] LABS: Protein/Creatinine Ratio,Urine 4.168
[2020-04-11 11:55] LABS: Appearance,Urine Clear (Clear); Bacteria,Urine Rare /hpf; Bilirubin,Urine Negative (Negative); Blood,Urine Small (Negative); Color,Urine Light Yellow; Glucose,Urine (UA) Negative (Negative); Ketones,Urine Negative (Negative); Leukocyte Esterase,Urine Large (Negative); Mucus,Urine Rare /hpf; Nitrite,Urine Negative (Negative); PH, Urine 6.5 (5.0-8.0); Protein,Urine 2+ (Negative); RBC,Urine <1 /hpf (0-5); Specific Gravity,Urine 1.013 (1.001-1.035); Squamous Epithelial Cell,Urine 3 /hpf (0-4); Urobilinogen,Urine <2.0 mg/dL (<2.0); WBC,Urine 10 /hpf (0-5)
[2020-04-11 12:05] LABS: Basophils # (A) 0.1 k/uL (0-0.2); Basophils % (A) 1 %; Eosinophils # (A) 0.5 k/uL (0-0.7); Eosinophils % (A) 6 %; HCT 36.1 % (34.0-46.0); HGB 11.3 gm/dL (11.4-16.0); Lymphocytes # (A) 1.7 k/uL (1.0-4.8); Lymphocytes % (A) 20 %; MCH 30.3 pg (25.0-35.0); MCHC 31.3 g/dL (31.0-37.0); MCV 96.8 fL (80.0-100.0); Monocytes # (A) 0.5 k/uL (0-1.0); Monocytes % (A) 6 %; Neutrophils # (A) 5.6 k/uL (1.3-7.7); Neutrophils % (A) 66 %; Platelet Count 242 k/uL (150-450); RBC 3.73 m/uL (3.80-5.40); RDW 15.3 % (11.5-15.5); WBC 8.5 k/uL (3.8-10.6)
[2020-04-11 16:39] LABS: % Iron Saturation 17.67 (12.00-45.00); African American GFR (CKD) 19.6 (60.0-200.0); Albumin 4.5 g/dL (3.80-4.90); Anion Gap 11.5 mmol/L (4.00-12.00); BUN/Creat Ratio 22.59 Ratio (12.00-20.00); Calcium 9.8 mg/dL (8.7-10.3); Carbon Dioxide 25.5 mmol/L (21.6-31.8); Magnesium 2.3 mg/dL (1.5-2.4); Non-African American GFR(CKD) 16.9 (60.0-200.0); Phosphorus 4.1 mg/dL (2.4-5.1); Potassium 4.4 mmol/L (3.5-5.5); Uric Acid 5.2 mg/dL (2.9-7.7)
[2020-04-11 16:48] LABS: Ferritin 319.9 ng/mL (10.0-291.0)
== END | disposition home or self-care (01) ==
LOC: LABWHC1 08:49
PROVIDERS: ATTEND Nurse Practitioner Family
DX: N39.0 Urinary tract infection, site not specified (principal); N18.5 Chronic kidney disease, stage 5; D63.1 Anemia in chronic kidney disease; M10.9 Gout, unspecified; E83.39 Other disorders of phosphorus metabolism; E55.9 Vitamin D deficiency, unspecified; N25.81 Secondary hyperparathyroidism of renal origin; R80.9 Proteinuria, unspecified
CPT/HCPCS: 36415; 80048; 81001; 82040; 82306; 82570; 82728; 83540; 83550; 83735; 83970; 84100; 84156; 84550; 85025

== ENCOUNTER → 2020-06-19 | Outpatient (CLI) | payer MEDICARE ==
[2020-06-19 08:10] VITALS: BP 144/81; PULSE 56; RESP 20; TEMP 97.7
--- NOTE | 2020-06-19 08:59 | P.HPOB ---
History of Present Illness H&P Date: 06/19/20 Chief Complaint: The patient is here for her routine gynecologic exam and ma mmogram. This is a 74-year-old with an LMP of 2002. The patient is without gynecologic complaints. She states she is now on a transplant list for possible kidney transplant because of her chronic kidney disease. She was also started on a medication for hyperparathyroidism related to her chronic kidney disease. Her branding machine operator recommended having another bone density test done. Review of Systems Weight has been stable. She denies respiratory, cardiac and G.I. problems. She denies maltreatment or problems with falling. : she denies any significant problems with urinary leakage. 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 Osteopenia. Type II diabetes. Chronic kidney disease(looking into renal transplant). 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 Known grade 2 rectocele. History of Any Multi-Drug Resistant Organisms: None Reported Past Surgical History: Adenoidectomy, Appendectomy, Tonsillectomy Additional Past Surgical History / Comment(s): fatty tumor removed; hiatal hernia repair. Had a colonoscopy 2013. Left antecubital fistula placement for possible dialysis. Past Anesthesia/Blood Transfusion Reactions: No Reported Reaction Past Psychological History: No Psychological Hx Reported Smoking Status: Never smoker Past Alcohol Use History: None Reported Past Drug Use History: None Reported Additional History: She is a and is not sexually active. She is retired. - Past Family History Mother Family Medical History: Cancer Additional Family Medical History / Comment(s): Breast cancer. Grandmother had diabetes. Medications and Allergies Home Medications Medication Instructions Recorded Confirmed Type Simvastatin [Zocor] 40 mg PO HS 11/25/13 06/19/20 History Cinacalcet [Sensipar] 30 mg PO DIRECTED 12/01/16 06/19/20 History Spironolactone [Aldactone] 12.5 mg PO DAILY 12/01/16 06/19/20 History allopurinoL [Zyloprim] 300 mg PO DAILY 11/02/17 06/19/20 History Furosemide [Lasix] 100 mg PO DAILY 05/11/18 06/19/20 History INSULIN LISPRO (humaLOG) [humaLOG] 16 units SQ TID 01/17/19 06/19/20 History Polyethylene Glycol 3350 [Miralax] 17 gm PO DAILY #527 gm 06/06/19 06/19/20 Rx Carvedilol [Coreg] 6.25 mg PO BID 06/19/20 06/19/20 History Cholecalciferol [Vitamin D3 (25 1,000 unit PO DAILY 06/19/20 06/19/20 History Mcg = 1000 Iu)] Insulin Glargine,Hum.rec.anlog 35 unit SQ HS 06/19/20 06/19/20 History [Basaglar Kwikpen U-100] Turmeric Root Extract [Turmeric] 500 mg PO DAILY 06/19/20 06/19/20 History Allergies Allergy/AdvReac Type Severity Reaction Status Date / Time adhesive Allergy Rash/Hives Verified 06/19/20 07:55 codeine Allergy Rash/Hives Verified 06/19/20 07:55 erythromycin base Allergy Rash/Hives Verified 06/19/20 07:55 [Erythromycin Base] Penicillins Allergy Swelling Verified 06/19/20 07:55 Exam Vital Signs Temp Pulse Resp BP Pulse Ox 06/19/20 08:04 97.7 F 56 L 20 144/81 97 Intake and Output 06/18/20 06/19/20 06/19/20 22:59 06:59 14:59 Other: Weight 81.647 kg Height 5 feet 1/2 inch, weight 180 pounds, BMI 34.6. This is a well-developed well-nourished white female who is alert and oriented times 3 in no acute distress. HEENT: Within normal limits. NECK: Supple without mass or thyromegaly. CHEST AND LUNGS: Clear to auscultation. HEART: Regular rate and rhythm. BREASTS: Are without mass or discharge. AXILLARY EXAM: Negative for adenopathy. BACK: Negative for CVA tenderness. ABDOMEN: Soft, nontender, without palpable masses. PELVIC EXAM: Normal external genitalia with mild atrophy. Cervix and vagina appear normal with mild atrophy. There is no unusual discharge. There is a grade 2 rectocele which is stable from her previous examination. There is no significant uterine prolapse and no significant cystocele. The uterus is midposition, nongravid size and nontender. There are no palpable adnexal masses or tenderness. RECTAL EXAM: Rectovaginal exam is negative for mass or tenderness and is negative for occult blood. The rectal exam confirms a small rectocele. EXTREMITIES: Nontender. IMPRESSION: 1. 74-year-old menopausal female with a stable grade 2 rectocele which is asymptomatic. Otherwise unremarkable gynecologic exam. 2. History of osteopenia. 3. Multiple medical problems including hyperparathyroidism and chronic renal disease. PLAN: 1. Pap smears have been discontinued because of her age with adequate screening. 2. Self breast awareness was discussed with the patient. 3. Screening mammogram will be done today. 4. Continue conservative management regarding her rectocele. She was instructed to avoid holding stool longer than necessary. 5. Osteoporosis prevention was discussed. I have stressed the importance of adequate calcium, vitamin D and regular exercise. Recommended amounts of calcium and vitamin D were also discussed. I have recommended that she discuss calcium and vitamin intake with her branding machine operator who is treating her for her hyperparathyroidism. She states her branding machine operator recommended doing another bone density test at this time. She understands that usually do not recommend doing bone density tests before 2 years. She states her branding machine operator knows that it was done in 2019. Bone density test will be done today. 6. She did not get a flu shot this fall and states she does not get flu shots in general. I have asked her to reconsider this especially with the COVID pandemic upon us. She will also consider the Covid vaccination when it is available. 7. She was advised to return in one year for her annual well woman exam.
--- NOTE | 2020-06-19 13:56 | BD ---
EXAMINATION TYPE: Axial Bone Density DATE OF EXAM: 06/19/2020 COMPARISON: 11.29.2018 CLINICAL HISTORY: 74 YR OLD FEMALE....ICD-10 CODE: Z78.0 POST MENOPAUSAL Height: 59.5 Weight: 178 FRAX RISK QUESTIONS: Secondary Osteoporosis: YES 1. Type 1 Diabetes: YES RISK FACTORS HISTORY OF: Family History of Osteoporosis: UNKNOWN Diet low in dairy products/other sources of calcium: YES, HYPERCALCEMIA Postmenopausal woman: YES AT 57 YRS OLD Take estrogen and/or progesterone medications: BCPs ONLY.....NOTHING NOW Lost more than 2 inches in height since high school: YES Frequent falls: UNSTEADY Poor Health: RENAL Hyperparathyroidism: YES Adrenal Insufficiency: NO MEDICATIONS: Additional Medications: SENSIPAR, BP MEDS, INSULIN, STATIN FOR CHOLESTEROL, VIT D Additional History: RENAL TROUBLE, LOW PHOSPHORUS AND CA DIET, HYPERCALCEMIA, HYPERTENSION, CHOLESTER OL, DIABETIC EXAM MEASUREMENTS: Bone mineral densitometry was performed using the XRONet System. Bone mineral density as measured about the Lumbar spine is: ----- L1-L4(G/cm2): 1.069 T Score Values are as follows: ----- L1: -1.6 ----- L2: -1.3 ----- L3: -1.8 ----- L4: 0.5 ----- L1-L4: -0.9 Bone mineral density has: Increased 0.3% since study of: 11.29.2018 Bone mineral density about the R hip (g/cm2): 0.873 Bone mineral density about the L hip (g/cm2): 0.853 T Score values are as follows: -----R Neck: -1.4 -----L Neck: -1.2 -----R Total: -1.1 -----L Total: -1.2 Bone mineral density has: Decreased -7.4% since study of: 11.29.2018 FRAXs: THERE IS A 9.8% CHANCE FOR A MAJOR OSTEOPOROTIC FX AND A 1.5% FOR HIP.....PROBABILITY FOR FX IN 10 YRS TIME IMPRESSION: Osteopenia (T Score between -2.5 and -1). There is slightly increased risk of fracture and the patient may be considered for treatment. Re-Screen 2-5 years. NOTE: T-SCORE=SD OF THE YOUNG ADULT MEAN.
--- NOTE | 2020-06-20 11:22 | MM ---
Reason for exam: screening (asymptomatic). Last mammogram was performed 1 year and 7 months ago. History: Patient is postmenopausal. Family history of breast cancer in mother at age 63. Took hormonal contraceptives for 4 years beginning at age 22. Physical Findings: A clinical breast exam by your physician is recommended on an annual basis and results should be correlated with mammographic findings. MG 3D Screening Mammo W/Cad Bilateral CC and MLO view(s) were taken. Prior study comparison: November 29, 2018, bilateral MG 3d screening mammo w/cad. November 02, 2017, bilateral MG 3d screening mammo w/cad. There are scattered fibroglandular densities. Finding #1: There is an indistinct lobulated mass located 1-2 cm from the nipple in the upper outer quadrant, anterior position of the right breast on MLO 12/51 and CC 25/43. Finding #2: There are typically benign round calcifications in both breasts. There is a chronic nodularity bilaterally. New finding since November 29, 2018 and November 02, 2017. ASSESSMENT: Incomplete: need additional imaging evaluation, BI-RAD 0 RECOMMENDATION: Ultrasound of the right breast. [facility] will attempt to contact patient to return for ultrasound.
--- NOTE | 2020-06-26 10:39 | P.PN ---
Progress Note - Text Progress Note Date: 06/26/20 OUTPATIENT FOLLOW-UP NOTE TEST(S)/RESULTS: Bone density test done on 06/19/2020 shows osteopenia, bone strength slightly decreased from her previous bone density test last year. METHOD OF NOTIFICATION: Patient was notified by phone. PATIENT COMMENTS: The patient states she does seem to have some leg weakness when walking and wonders if this is related to this testing. DIAGNOSIS: Osteopenia DISCUSSION: I have let the patient noted I don't believe her leg weakness is directly related to her osteopenia. I have recommended that she follow-up with her PCP and post doctoral fellow for this issue. I have stressed the importance of getting adequate calcium, vitamin D and regular exercise and she understands that I would like her to speak with her post doctoral fellow regarding these recommendations since she is treated for hyperparathyroidism by her post doctoral fellow. PLAN: Repeat bone density testing in 2 years. The patient was advised to return in 1-2 years for her well woman examination.
== END | disposition home or self-care (01) ==
LOC: WWCWWP 07:37
PROVIDERS: ATTEND Obstetrics & Gynecology
DX: Z12.31 Encounter for screening mammogram for malignant neoplasm of breast (principal); M85.80 Other specified disorders of bone density and structure, unspecified site; Z78.0 Asymptomatic menopausal state
CPT/HCPCS: 77063; 77067; 77080

== ENCOUNTER → 2020-06-25 | Outpatient (CLI) | payer MEDICARE ==
--- NOTE | 2020-06-25 10:43 | USB ---
Reason for exam: additional evaluation requested from abnormal screening. History: Patient is postmenopausal. Family history of breast cancer in mother at age 63. Took hormonal contraceptives for 4 years beginning at age 22. Physical Findings: Nurse Summary: all soft, nodular, movable (nurse ts). US Breast Workup Limited RT Technologist: Trini Miller Right limited breast ultrasound including focal area of concern, retroareolar and axilla demonstrates ducts at 11 o'clock and a 0.4 x 0.4 x 0.3cm cystic lesion at 11 o'clock. These results were verbally communicated with the patient and result sheet given to the patient on 06/25/20. ASSESSMENT: Benign, BI-RAD 2 RECOMMENDATION: Return to routine screening mammogram schedule for both breasts.
== END | disposition home or self-care (01) ==
LOC: RADUSWWP 09:43
PROVIDERS: ATTEND Obstetrics & Gynecology
DX: R92.8 Other abnormal and inconclusive findings on diagnostic imaging of breast (principal)

== ENCOUNTER → 2020-11-15 | Outpatient (CLI) | payer MEDICARE ==
[2020-11-15 09:02] LABS: Appearance,Urine Cloudy (Clear); Bacteria,Urine Many /hpf; Bilirubin,Urine Negative (Negative); Blood,Urine Trace (Negative); Color,Urine Light Yellow; Glucose,Urine (UA) Negative (Negative); Hyaline Casts,Urine 1 /lpf (0-2); Ketones,Urine Negative (Negative); Leukocyte Esterase,Urine Large (Negative); Mucus,Urine Rare /hpf; Nitrite,Urine Negative (Negative); PH, Urine 5.5 (5.0-8.0); Protein,Urine 2+ (Negative); RBC,Urine 4 /hpf (0-5); Squamous Epithelial Cell,Urine 6 /hpf (0-4); Urobilinogen,Urine <2.0 mg/dL (<2.0); WBC,Urine 48 /hpf (0-5)
[2020-11-15 09:40] LABS: Creatinine,Urine Random 57.2 mg/dL; Protein/Creatinine Ratio,Urine 2.22
[2020-11-15 16:06] LABS: Basophils # (A) 0.03 X 10*3/uL (0.00-0.10); Basophils % (A) 0.4 %; Eosinophils # (A) 0.42 X 10*3/uL (0.04-0.35); Eosinophils % (A) 5.5 %; HCT 32.4 % (37.2-46.3); Lymphocytes # (A) 1.76 X 10*3/uL (0.90-5.00); Lymphocytes % (A) 23.2 %; MCH 31.8 pg (27.0-32.0); MCHC 30.9 g/dL (32.0-37.0); MCV 103.2 fL (80.0-97.0); Mean Platelet Volume 12.6 fL (9.5-12.2); Monocytes # (A) 0.74 X 10*3/uL (0.20-1.00); Monocytes % (A) 9.8 %; Neutrophils # (A) 4.61 X 10*3/uL (1.80-7.70); Neutrophils % (A) 60.8 %; Platelet Count 211 X 10*3/uL (140-440); RBC 3.14 X 10*6/uL (4.10-5.20); RDW 15.1 % (11.5-14.5); WBC 7.58 X 10*3/uL (4.50-10.00)
[2020-11-15 20:57] LABS: % Iron Saturation 23.79 (12.00-45.00); African American GFR (CKD) 14.2 (60.0-200.0); Albumin 4.4 g/dL (3.80-4.90); Anion Gap 11.4 mmol/L (4.00-12.00); BUN/Creat Ratio 26.86 Ratio (12.00-20.00); Carbon Dioxide 23.6 mmol/L (21.6-31.8); Magnesium 2.4 mg/dL (1.5-2.4); Non-African American GFR(CKD) 12.3 (60.0-200.0); Phosphorus 5.1 mg/dL (2.4-5.1); Potassium 4.4 mmol/L (3.5-5.5); Uric Acid 4.7 mg/dL (2.9-7.7)
[2020-11-15 21:26] LABS: Ferritin 430.9 ng/mL (10.0-291.0)
== END | disposition home or self-care (01) ==
LOC: LABWHC1 08:21
PROVIDERS: ATTEND Nurse Practitioner Family
DX: N25.81 Secondary hyperparathyroidism of renal origin (principal); N18.4 Chronic kidney disease, stage 4 (severe); M10.9 Gout, unspecified; N39.0 Urinary tract infection, site not specified; D64.9 Anemia, unspecified; R80.9 Proteinuria, unspecified
CPT/HCPCS: 36415; 80048; 81001; 82040; 82306; 82570; 82728; 83540; 83550; 83735; 83970; 84100; 84156; 84550; 85025

== ENCOUNTER → 2020-12-17 | Outpatient (CLI) | payer MEDICARE ==
[2020-12-17 16:05] LABS: Basophils # (A) 0.05 X 10*3/uL (0.00-0.10); Basophils % (A) 0.7 %; Eosinophils % (A) 6.9 %; HCT 29.7 % (37.2-46.3); HGB 9.2 g/dL (12.0-15.0); Lymphocytes # (A) 1.83 X 10*3/uL (0.90-5.00); Lymphocytes % (A) 25.2 %; MCH 31.5 pg (27.0-32.0); MCV 101.7 fL (80.0-97.0); Mean Platelet Volume 12.6 fL (9.5-12.2); Monocytes # (A) 0.75 X 10*3/uL (0.20-1.00); Monocytes % (A) 10.3 %; Neutrophils % (A) 56.6 %; Platelet Count 205 X 10*3/uL (140-440); RBC 2.92 X 10*6/uL (4.10-5.20); RDW 14.6 % (11.5-14.5); WBC 7.25 X 10*3/uL (4.50-10.00)
[2020-12-17 19:08] LABS: African American GFR (CKD) 12.5 (60.0-200.0); Albumin 4.4 g/dL (3.80-4.90); Anion Gap 13.9 mmol/L (4.00-12.00); BUN/Creat Ratio 25.64 Ratio (12.00-20.00); Calcium 10.3 mg/dL (8.7-10.3); Carbon Dioxide 20.1 mmol/L (21.6-31.8); Non-African American GFR(CKD) 10.8 (60.0-200.0); Phosphorus 5.5 mg/dL (2.4-5.1); Potassium 3.9 mmol/L (3.5-5.5)
== END | disposition home or self-care (01) ==
LOC: LABWHC1 08:28
PROVIDERS: ATTEND Internal Medicine Nephrology
DX: N18.4 Chronic kidney disease, stage 4 (severe) (principal); D64.9 Anemia, unspecified
CPT/HCPCS: 36415; 80048; 82040; 84100; 85025

== ENCOUNTER → 2021-01-16 | Outpatient (CLI) | payer MEDICARE ==
[2021-01-16 11:37] LABS: Basophils # (A) 0.04 X 10*3/uL (0.00-0.10); Basophils % (A) 0.7 %; Eosinophils % (A) 8.2 %; HCT 29.9 % (37.2-46.3); HGB 9.2 g/dL (12.0-15.0); Lymphocytes # (A) 2.17 X 10*3/uL (0.90-5.00); Lymphocytes % (A) 35.7 %; MCH 31.7 pg (27.0-32.0); MCHC 30.8 g/dL (32.0-37.0); MCV 103.1 fL (80.0-97.0); Mean Platelet Volume 12.1 fL (9.5-12.2); Monocytes % (A) 11.5 %; Neutrophils # (A) 2.65 X 10*3/uL (1.80-7.70); Neutrophils % (A) 43.7 %; Platelet Count 232 X 10*3/uL (140-440); RDW 14.2 % (11.5-14.5); WBC 6.07 X 10*3/uL (4.50-10.00)
[2021-01-16 14:01] LABS: % Iron Saturation 21.82 (12.00-45.00); African American GFR (CKD) 13.8 (60.0-200.0); Albumin 4.2 g/dL (3.80-4.90); Anion Gap 11.8 mmol/L (4.00-12.00); BUN/Creat Ratio 23.06 Ratio (12.00-20.00); Calcium 9.4 mg/dL (8.7-10.3); Carbon Dioxide 22.2 mmol/L (21.6-31.8); Magnesium 2.4 mg/dL (1.5-2.4); Non-African American GFR(CKD) 11.9 (60.0-200.0); Phosphorus 5.1 mg/dL (2.4-5.1); Potassium 4.4 mmol/L (3.5-5.5)
[2021-01-16 14:14] LABS: Ferritin 358.7 ng/mL (10.0-291.0)
== END | disposition home or self-care (01) ==
LOC: LABWHC1 07:09
PROVIDERS: ATTEND Nurse Practitioner Family
DX: N18.4 Chronic kidney disease, stage 4 (severe) (principal); N25.81 Secondary hyperparathyroidism of renal origin; E55.9 Vitamin D deficiency, unspecified; D64.9 Anemia, unspecified
CPT/HCPCS: 36415; 80048; 82040; 82306; 82728; 83540; 83550; 83735; 83970; 84100; 85025

== ENCOUNTER → 2021-02-10 | Outpatient (CLI) | payer MEDICARE ==
--- NOTE | 2021-02-10 16:21 | CT ---
EXAMINATION TYPE: CT brain wo con DATE OF EXAM: 02/10/2021 COMPARISON: None INDICATION: Left sided facial numbness. DLP: 926.5 mGycm, Automated exposure control for dose reduction was used. CONTRAST: None CT of the brain is performed utilizing 3 mm thick sections through the posterior fossa and 3 mm thick sections through the remaining calvarium. Study is performed within 24 hours of arrival to the hosp [facility]. No abnormal hyperdensity is present to suggest an acute intracranial hemorrhage. No mass lesion is evident. No acute infarcts are evident. Periventricular white matter hypodensity is present compatible with ch ronic appearing white matter ischemic changes. Ventricles and sulci are prominent for the patient age. Paranasal sinuses and mastoid air cells within the [id number] are clear. IMPRESSIONS: 1. Atrophy with chronic appearing periventricular white matter ischemic-type changes.
== END | disposition home or self-care (01) ==
LOC: RADCTMAIN 12:20
PROVIDERS: ATTEND Family Medicine
DX: G31.9 Degenerative disease of nervous system, unspecified (principal)
CPT/HCPCS: 70450

== ENCOUNTER 2021-02-27 11:12 | Inpatient (IN) | payer MEDICARE ==
[2021-02-27 12:33] LABS: Anisocytosis Slight; Basophils % (A) 1 %; Eosinophils # (A) 0.3 k/uL (0-0.7); Eosinophils % (A) 5 %; HCT 32.1 % (34.0-46.0); HGB 10.5 gm/dL (11.4-16.0); Lymphocytes # (A) 1.4 k/uL (1.0-4.8); Lymphocytes % (A) 22 %; MCHC 32.6 g/dL (31.0-37.0); MCV 104.3 fL (80.0-100.0); Macrocytosis Moderate; Mean Platelet Volume 8.9; Monocytes # (A) 0.4 k/uL (0-1.0); Monocytes % (A) 7 %; Neutrophils % (A) 64 %; Platelet Count 236 k/uL (150-450); RBC 3.07 m/uL (3.80-5.40); RDW 16.3 % (11.5-15.5); WBC 6.3 k/uL (3.8-10.6)
[2021-02-27 12:46] LABS: Albumin 4.4 g/dL (3.5-5.0); Calcium 10.2 mg/dL (8.4-10.2); Magnesium 2.5 mg/dL (1.6-2.3); Phosphorus 4.6 mg/dL (2.5-4.5); Total Bilirubin 0.3 mg/dL (0.2-1.3); Total Protein 6.9 g/dL (6.3-8.2)
[2021-02-27 12:47] LABS: INR 0.9 (<1.2)
[2021-02-27 12:54] LABS: Partial Thromboplastin Time 20.8 sec (22.0-30.0)
--- NOTE | 2021-02-27 13:19 | ED ---
General Adult HPI - General Chief complaint: Recheck/Abnormal Lab/Rx Stated complaint: abd labs Time Seen by Provider: 02/27/21 11:16 Source: patient, RN notes reviewed Mode of arrival: wheelchair Limitations: no limitations - History of Present Illness Initial comments: 75-year-old female presents emergency Department chief complaint of abnormal labs. Patient was sent in by PCP for acute on chronic renal failure. Patient reportedly had increasing creatinine to 4. Patient has no specific complaints otherwise. She does have leg swelling which is ongoing.. No chest pain or from no headache or dizziness. No recent medication changes. - Related Data Home Medications Medication Instructions Recorded Confirmed Cinacalcet [Sensipar] 30 mg PO DIRECTED 12/01/16 02/11/21 Spironolactone [Aldactone] 12.5 mg PO DAILY 12/01/16 02/11/21 allopurinoL [Zyloprim] 300 mg PO DAILY 11/02/17 02/11/21 Furosemide [Lasix] 100 mg PO DAILY 05/11/18 02/11/21 INSULIN LISPRO (humaLOG) [humaLOG] 16 units SQ TID 01/17/19 02/11/21 Carvedilol [Coreg] 6.25 mg PO BID 06/19/20 02/11/21 Insulin Glargine,Hum.rec.anlog 35 unit SQ HS 06/19/20 02/11/21 [Basaglar Kwikpen U-100] Turmeric Root Extract [Turmeric] 500 mg PO DAILY 06/19/20 02/11/21 Cholecalciferol (Vitamin D3) 12.5 mcg PO DAILY 01/28/21 02/11/21 [Vitamin D3 (500 Iu/5 ML)] Rosuvastatin [Crestor] 20 mg PO DAILY 01/28/21 02/11/21 Previous Rx's Medication Instructions Recorded Polyethylene Glycol 3350 [Miralax] 17 gm PO DAILY #527 gm 06/06/19 Allergies Allergy/AdvReac Type Severity Reaction Status Date / Time adhesive Allergy Rash/Hives Verified 02/27/21 11:28 codeine Allergy Rash/Hives Verified 02/27/21 11:28 erythromycin base Allergy Rash/Hives Verified 02/27/21 11:28 [Erythromycin Base] Penicillins Allergy Swelling Verified 02/27/21 11:28 Review of Systems ROS Statement: Those systems with pertinent positive or pertinent negative responses have been documented in the HPI. ROS Other: All systems not noted in ROS Statement are negative. 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 Osteopenia. Type II diabetes. Chronic kidney disease(looking into renal transplant). 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 Known grade 2 rectocele. History of Any Multi-Drug Resistant Organisms: None Reported Past Surgical History: Adenoidectomy, Appendectomy, Tonsillectomy Additional Past Surgical History / Comment(s): fatty tumor removed; hiatal he rnia repair. Had a colonoscopy 2013. Left antecubital fistula placement for possible dialysis. Fistula Revision - left arm. Bilateral knees - gel insertion Past Anesthesia/Blood Transfusion Reactions: No Reported Reaction Past Psychological History: No Psychological Hx Reported Smoking Status: Never smoker Past Alcohol Use History: None Reported Past Drug Use History: None Reported - Past Family History Mother Family Medical History: Cancer Additional Family Medical History / Comment(s): Breast cancer. Grandmother had diabetes. General Exam Limitations: no limitations General appearance: alert, in no apparent distress Head exam: Present: atraumatic, normocephalic, normal inspection Neck exam: Present: normal inspection, full ROM. Absent: tenderness, meningismus, lymphadenopathy Respiratory exam: Present: normal lung sounds bilaterally. Absent: respiratory distress, wheezes, rales, rhonchi, stridor Cardiovascular Exam: Present: regular rate, normal rhythm, normal heart sounds. Absent: systolic murmur, diastolic murmur, rubs, gallop, clicks GI/Abdominal exam: Present: soft, normal bowel sounds. Absent: distended, tenderness, guarding, rebound, rigid Extremities exam: Present: pedal edema (Mild) Course Vital Signs 02/27/21 11:26 Temperature 97.7 F Pulse Rate 73 Respiratory 18 Rate Blood Pressure 175/77 O2 Sat by Pulse 98 Oximetry Medical Decision Making - Medical Decision Making Patient presented for abnormal labs. Patient has been chronic renal failure will be admitted for nephrology evaluation. - Lab Data Result diagrams: 02/27/21 11:41 02/27/21 11:41 Lab Results 02/27/21 02/27/21 02/27/21 Range/Units 11:41 11:41 11:41 WBC 6.3 (3.8-10.6) k/uL RBC 3.07 L (3.80-5.40) m/uL Hgb 10.5 L (11.4-16.0) gm/dL Hct 32.1 L (34.0-46.0) % MCV 104.3 H (80.0-100.0) fL MCH 34.0 (25.0-35.0) pg MCHC 32.6 (31.0-37.0) g/dL RDW 16.3 H (11.5-15.5) % Plt Count 236 (150-450) k/uL MPV 8.9 Neutrophils % 64 % Lymphocytes % 22 % Monocytes % 7 % Eosinophils % 5 % Basophils % 1 % Neutrophils # 4.0 (1.3-7.7) k/uL Lymphocytes # 1.4 (1.0-4.8) k/uL Monocytes # 0.4 (0-1.0) k/uL Eosinophils # 0.3 (0-0.7) k/uL Basophils # 0.0 (0-0.2) k/uL Anisocytosis Slight Macrocytosis Moderate PT 10.0 (9.0-12.0) sec INR 0.9 (<1.2) APTT 20.8 L (22.0-30.0) sec Sodium 139 (137-145) mmol/L Potassium 4.0 (3.5-5.1) mmol/L Chloride 103 (98-107) mmol/L Carbon Dioxide 21 L (22-30) mmol/L Anion Gap 15 mmol/L BUN 98 H (7-17) mg/dL Creatinine 3.94 H (0.52-1.04) mg/dL Est GFR (CKD-EPI)AfAm 12 (>60 ml/min/1.73 sqM) Est GFR (CKD-EPI)NonAf 11 (>60 ml/min/1.73 sqM) Glucose 288 H (74-99) mg/dL Calcium 10.2 (8.4-10.2) mg/dL Phosphorus 4.6 H (2.5-4.5) mg/dL Magnesium 2.5 H (1.6-2.3) mg/dL Total Bilirubin 0.3 (0.2-1.3) mg/dL AST 25 (14-36) U/L ALT 12 (4-34) U/L Alkaline Phosphatase 50 (38-126) U/L Total Protein 6.9 (6.3-8.2) g/dL Albumin 4.4 (3.5-5.0) g/dL Disposition Clinical Impression: Acute on chronic renal failure Disposition: ADMITTED IP TO THIS HOSP Condition: Fair Referrals: Isacc Valdez MD [Primary Care Provider] - 1-2 days
[2021-02-27] MEDS ORDERED: NALOXONE 0.4 MG/ML 1 ML VIAL IV PRN (13:20)
[2021-02-27] MEDS ORDERED: hydrALAZINE HCL 20 MG/ML 1 ML VIAL IVP STA (13:45)
[2021-02-27 14:34] LABS: Appearance,Urine Clear (Clear); Bacteria,Urine Occasional /hpf; Bilirubin,Urine Negative (Negative); Blood,Urine Small (Negative); Color,Urine Light Yellow; Glucose,Urine (UA) 3+ (Negative); Ketones,Urine Negative (Negative); Leukocyte Esterase,Urine Small (Negative); Mucus,Urine Rare /hpf; Nitrite,Urine Negative (Negative); PH, Urine 5.5 (5.0-8.0); Protein,Urine 2+ (Negative); RBC,Urine 3 /hpf (0-5); Squamous Epithelial Cell,Urine 1 /hpf (0-4); Urobilinogen,Urine <2.0 mg/dL (<2.0); WBC,Urine 4 /hpf (0-5)
--- NOTE | 2021-02-27 15:06 | XR ---
EXAMINATION TYPE: XR chest 2V DATE OF EXAM: 02/27/2021 COMPARISON: 11/25/2013 HISTORY: Shortness of breath TECHNIQUE: Frontal and lateral views of the chest are obtained. FINDINGS: Scattered senescent parenchymal changes noted. Hyperinflation compatible with COPD. No evidence for infiltrate. No evidence for atelectasis. Heart size is stable. Mediastinal structures are stable and grossly unremarkable. No evidence for hilar prominence. Degenerative changes dorsal spine. IMPRESSION: 1. No evidence for acute pulmonary disease.
[2021-02-27] MEDS: INSULIN ASPART (NovoLOG) 100 UNIT/ML VIAL SQ SCH ×3 (18:12→22:06)
[2021-02-27] MEDS: carvediloL 6.25 MG TAB PO SCH (18:12)
[2021-02-27] MEDS: FUROSEMIDE 40 MG TAB PO SCH (18:12)
--- NOTE | 2021-02-27 18:24 | P.HPIM ---
History of Present Illness H&P Date: 02/27/21 Chief Complaint: Generalized weakness/exertional shortness of breath 75-year-old female was sent to the emergency department for increasing exertional shortness of breath, and generalized weakness with associated increasing creatinine and BUN. Patient has significant medical history of stage IV kidney disease, diabetes mellitus type 2, history of CVA/TIA, hyperlipidemia, hypertension, osteoarthritis, and osteoporosis. Patient had extensive diagnostic workup in the emergency department revealing acute on chronic kidney failure. Vital signs and diagnostic testing reviewed. Consultation with nephrology for recommendations and treatment plan possible dialysis through left fistula. Review of Systems Constitutional: Reports fatigue, Reports weakness Ears: bilateral: decreased hearing Cardiovascular: Reports edema, Reports high blood pressure Respiratory: Reports dyspnea Musculoskeletal: Reports muscle weakness Neurological: Reports weakness Past Medical History Past Medical History: CVA/TIA, Diabetes Mellitus, Hyperlipidemia, Hypertension, Osteoarthritis (OA), Pneumonia, Renal Disease Additional Past Medical History / Comment(s): Had CVA in her 30's. Osteopenia. Type II diabetes. Chronic kidney disease(looking into renal transplant). 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 Known grade 2 rectocele. History of Any Multi-Drug Resistant Organisms: None Reported Past Surgical History: Adenoidectomy, Appendectomy, Tonsillectomy Additional Past Surgical History / Comment(s): fatty tumor removed; hiatal hernia repair. Had a colonoscopy 2013. Left antecubital fistula placement for possible dialysis. Fistula Revision - left arm. Bilateral knees - gel insertion Past Anesthesia/Blood Transfusion Reactions: No Reported Reaction Past Psychological History: No Psychological Hx Reported Smoking Status: Never smoker Past Alcohol Use History: None Reported Past Drug Use History: None Reported - Past Family History Mother Family Medical History: Cancer Additional Family Medical History / Comment(s): Breast cancer. Grandmother had diabetes. Medications and Allergies Home Medications and Allergies Comment(s): Medications and ALLERGIES reviewed Home Medications Medication Instructions Recorded Confirmed Type Cinacalcet [Sensipar] 30 mg PO MOWEFR 12/01/16 02/27/21 History Spironolactone [Aldactone] 12.5 mg PO DAILY 12/01/16 02/27/21 History allopurinoL [Zyloprim] 300 mg PO DAILY 11/02/17 02/27/21 History Furosemide [Lasix] 60 mg PO DAILY 05/11/18 02/27/21 History INSULIN LISPRO (humaLOG) [humaLOG] 16 units SQ AC-TID 01/17/19 02/27/21 History Carvedilol [Coreg] 6.25 mg PO BID 06/19/20 02/27/21 History Insulin Glargine,Hum.rec.anlog 30 unit SQ HS 06/19/20 02/27/21 History [Basaglar Kwikpen U-100] Rosuvastatin [Crestor] 20 mg PO DAILY 01/28/21 02/27/21 History Furosemide [Lasix] 40 mg PO AC-SUPPER 02/27/21 02/27/21 History Allergies Allergy/AdvReac Type Severity Reaction Status Date / Time adhesive Allergy Rash/Hives Verified 02/27/21 13:20 codeine Allergy Rash/Hives Verified 02/27/21 13:20 erythromycin base Allergy Rash/Hives Verified 02/27/21 13:20 [Erythromycin Base] Penicillins Allergy Swelling Verified 02/27/21 13:20 Physical Exam Vitals: Vital Signs Temp Pulse Resp BP Pulse Ox 02/27/21 18:00 68 18 163/69 98 02/27/21 14:00 75 18 181/69 98 02/27/21 11:26 97.7 F 73 18 175/77 98 Intake and Output 02/27/21 02/27/21 02/27/21 06:59 14:59 22:59 Other: Weight 77.111 kg - Constitutional General appearance: mild distress - EENT Eyes: EOMI, PERRLA ENT: hard of hearing Ears: bilateral: normal - Neck Neck: normal ROM Carotids: bilateral: upstroke normal Thyroid: bilateral: normal size - Respiratory Respiratory: bilateral: diminished (Anterior lung pagan), rales (Faint crackles to posterior bilateral bases) - Cardiovascular Heart rate: 74 Rhythm: regular Heart sounds: normal: S1, S2 ankle Peripheral Edema: bilateral: 2+ foot Peripheral Edema: bilateral: 2+ radial pulse Peripheral Pulses: bilateral: Normal - Gastrointestinal General gastrointestinal: normal bowel sounds - Integumentary Integumentary: decreased turgor, pale - Neurologic Neurologic: CNII-XII intact - Musculoskeletal Musculoskeletal: generalized weakness - Psychiatric Psychiatric: A&O x's 3 Results CBC & Chem 7: 02/27/21 11:41 02/27/21 11:41 Labs: Abnormal Lab Results - Last 24 Hours (Table) 02/27/21 02/27/21 02/27/21 Range/Units 11:41 11:41 11:41 RBC 3.07 L (3.80-5.40) m/uL Hgb 10.5 L (11.4-16.0) gm/dL Hct 32.1 L (34.0-46.0) % MCV 104.3 H (80.0-100.0) fL RDW 16.3 H (11.5-15.5) % APTT 20.8 L (22.0-30.0) sec Carbon Dioxide (22-30) mmol/L BUN (7-17) mg/dL Creatinine (0.52-1.04) mg/dL Glucose (74-99) mg/dL Phosphorus (2.5-4.5) mg/dL Magnesium (1.6-2.3) mg/dL Urine Protein 2+ H (Negative) Urine Glucose (UA) 3+ H (Negative) Urine Blood Small H (Negative) Ur Leukocyte Esterase Small H (Negative) Urine Bacteria Occasional H (None) /hpf Urine Mucus Rare H (None) /hpf 02/27/21 Range/Units 11:41 RBC (3.80-5.40) m/uL Hgb (11.4-16.0) gm/dL Hct (34.0-46.0) % MCV (80.0-100.0) fL RDW (11.5-15.5) % APTT (22.0-30.0) sec Carbon Dioxide 21 L (22-30) mmol/L BUN 98 H (7-17) mg/dL Creatinine 3.94 H (0.52-1.04) mg/dL Glucose 288 H (74-99) mg/dL Phosphorus 4.6 H (2.5-4.5) mg/dL Magnesium 2.5 H (1.6-2.3) mg/dL Urine Protein (Negative) Urine Glucose (UA) (Negative) Urine Blood (Negative) Ur Leukocyte Esterase (Negative) Urine Bacteria (None) /hpf Urine Mucus (None) /hpf Chest x-ray: report reviewed Thrombosis Risk Factor Assmnt - Choose All That Apply Each Factor Represents 1 point: Obesity (BMI >25), Swollen legs (current) Each Risk Factor Represents 2 Points: Age 61-74 years Thrombosis Risk Factor Assessment Total Risk Factor Score: 4 Thrombosis Risk Factor Assessment Level: Moderate Risk Assessment and Plan Assessment: Acute renal failure Chronic renal failure stage IV Renal failure awaiting transplant Hypertension Dyslipidemia Diabetes mellitus type 2 Osteoarthritis Osteopenia History of hiatal hernia repair Left antecubital fistula placement awaiting dialysis Full code Plan: Acute renal failure on chronic renal failure, avoid nephrotoxic drugs as possib le; consultation with nephrology for recommendations and treatment plan possible dialysis through left fistula Hypertension, continue home medications additional antihypertensive added Apresoline 25 mg by mouth 3 times a day Diabetes mellitus type 2 continue home medications and additional sliding scale Generalized weakness consultation with physical/occupational therapy Continue DVT/GI prophylaxis Continue home medications Continue to monitor vital signs and diagnostic testing Further recommendations come based on patient's clinical condition Time with Patient: Greater than 30
[2021-02-27 18:27] LABS: Glucose,Whole Blood 216 mg/dL (75-99)
[2021-02-27 21:36] LABS: Glucose,Whole Blood 205 mg/dL (75-99)
[2021-02-27] MEDS: INSULIN DETEMIR (LEVEMIR) 100 UNIT/ML SYR SQ SCH (21:54)
[2021-02-27] MEDS: HEPARIN SODIUM,PORCINE/PF 5,000 UNIT/0.5 ML SYRINGE SQ SCH (22:08)
[2021-02-27] MEDS: hydrALAZINE HCL 25 MG TAB PO SCH (22:10)
--- NOTE | 2021-02-27 22:14 | US ---
EXAMINATION TYPE: US kidneys/renal and bladder DATE OF EXAM: 02/27/2021 COMPARISON: 09/08/2016 CLINICAL HISTORY: NILO. abnormal labs EXAM MEASUREMENTS: Right Kidney: 7.8 x 4.1 x 4.4 cm Left Kidney: 8.5 x 3.9 x 4.7 cm Right Kidney: Appears small in size. Echogenic in appearance. Cortical thinning. Left Kidney: Appears small in size. Echogenic in appearance. Cortical thinning. Bladder: distended, anechoic Bilateral Jets not seen IMPRESSION: No obstructive uropathy.
[2021-02-28 07:50] LABS: Glucose,Whole Blood 136 mg/dL (75-99)
--- NOTE | 2021-02-28 08:10 | P.PN ---
Subjective Progress Note Date: 02/28/21 Principal diagnosis: acute on chronic kidney failure 75-year-old female was sent to the emergency department for increasing exertional shortness of breath, and generalized weakness with associated increasing creatinine and BUN. Patient has significant medical history of stage IV kidney disease, diabetes mellitus type 2, history of CVA/TIA, hyperlipidemia, hypertension, osteoarthritis, and osteoporosis. Patient had extensive diagnostic workup in the emergency department revealing acute on chronic kidney failure. Vital signs and diagnostic testing reviewed. Consultation with nephrology for recommendations and treatment plan possible dialysis through left fistula. 02/28/2021 Patient seen and examined at bedside. Patient resting comfortably with no acute signs of distress. Patient continues to endorse exertional shortness of breath and generalized weakness. Patient has hypertensive episodes Apresoline 25 mg 3 times a day added for additional blood pressure control. Currently awaiting on nephrology for recommendations and treatment plan for possible dialysis via left antecubital fistula. Patient known to have stage IV kidney disease, awaiting transplant list, current kidney function has declined over the last 3 months. Patient no acute signs of distress Objective - Vital Signs Vital signs: Vital Signs Temp 97.6 F 02/28/21 06:27 Pulse 76 02/28/21 06:27 Resp 18 02/28/21 06:27 BP 161/62 02/28/21 06:27 Pulse Ox 95 02/28/21 06:27 Intake & Output 02/27/21 02/28/21 02/28/21 18:59 06:59 18:59 Intake Total 4810 Balance 4810 Weight 77.111 kg Intake: Oral 4810 Other: # Voids 4 - Constitutional General appearance: Present: mild distress - EENT Eyes: Present: EOMI, PERRLA ENT: Present: hard of hearing Ears: bilateral: normal - Neck Neck: Present: normal ROM Carotids: bilateral: upstroke normal Thyroid: bilateral: normal size - Respiratory Respiratory: bilateral: diminished (anterior lung pagan), rales (faint rails to posterior bilateral bases) - Cardiovascular Heart rate: 74 Rhythm: regular Heart sounds: normal: S1, S2 - Peripheral edema leg Peripheral Edema: bilateral: 2+ ankle Peripheral Edema: bilateral: 3+ foot Peripheral Edema: bilateral: 3+ - Peripheral pulses radial pulse Peripheral Pulses: bilateral: Normal - Gastrointestinal General gastrointestinal: Present: normal bowel sounds, soft - Integumentary Integumentary: Present: decreased turgor, pale - Neurologic Neurologic: Present: CNII-XII intact - Musculoskeletal Musculoskeletal: Present: generalized weakness - Psychiatric Psychiatric: Present: A&O x's 3, appropriate affect, intact judgment & insight - Allied health notes Allied health notes reviewed: nursing - Labs CBC & Chem 7: 02/27/21 11:41 02/27/21 11:41 Labs: Abnormal Lab Results - Last 24 Hours (Table) 02/27/21 02/27/21 02/27/21 Range/Units 11:41 11:41 11:41 RBC 3.07 L (3.80-5.40) m/uL Hgb 10.5 L (11.4-16.0) gm/dL Hct 32.1 L (34.0-46.0) % MCV 104.3 H (80.0-100.0) fL RDW 16.3 H (11.5-15.5) % APTT 20.8 L (22.0-30.0) sec Carbon Dioxide (22-30) mmol/L BUN (7-17) mg/dL Creatinine (0.52-1.04) mg/dL Glucose (74-99) mg/dL POC Glucose (mg/dL) (75-99) mg/dL Phosphorus (2.5-4.5) mg/dL Magnesium (1.6-2.3) mg/dL Urine Protein 2+ H (Negative) Urine Glucose (UA) 3+ H (Negative) Urine Blood Small H (Negative) Ur Leukocyte Esterase Small H (Negative) Urine Bacteria Occasional H (None) /hpf Urine Mucus Rare H (None) /hpf 02/27/21 02/27/21 02/27/21 Range/Units 11:41 18:09 21:34 RBC (3.80-5.40) m/uL Hgb (11.4-16.0) gm/dL Hct (34.0-46.0) % MCV (80.0-100.0) fL RDW (11.5-15.5) % APTT (22.0-30.0) sec Carbon Dioxide 21 L (22-30) mmol/L BUN 98 H (7-17) mg/dL Creatinine 3.94 H (0.52-1.04) mg/dL Glucose 288 H (74-99) mg/dL POC Glucose (mg/dL) 216 H 205 H (75-99) mg/dL Phosphorus 4.6 H (2.5-4.5) mg/dL Magnesium 2.5 H (1.6-2.3) mg/dL Urine Protein (Negative) Urine Glucose (UA) (Negative) Urine Blood (Negative) Ur Leukocyte Esterase (Negative) Urine Bacteria (None) /hpf Urine Mucus (None) /hpf 02/28/21 Range/Units 07:49 RBC (3.80-5.40) m/uL Hgb (11.4-16.0) gm/dL Hct (34.0-46.0) % MCV (80.0-100.0) fL RDW (11.5-15.5) % APTT (22.0-30.0) sec Carbon Dioxide (22-30) mmol/L BUN (7-17) mg/dL Creatinine (0.52-1.04) mg/dL Glucose (74-99) mg/dL POC Glucose (mg/dL) 136 H (75-99) mg/dL Phosphorus (2.5-4.5) mg/dL Magnesium (1.6-2.3) mg/dL Urine Protein (Negative) Urine Glucose (UA) (Negative) Urine Blood (Negative) Ur Leukocyte Esterase (Negative) Urine Bacteria (None) /hpf Urine Mucus (None) /hpf - Imaging and Cardiology Chest x-ray: report reviewed US - abdomen: report reviewed Assessment and Plan Assessment: Acute renal failure Chronic renal failure stage IV Renal failure awaiting transplant Hypertension Dyslipidemia Diabetes mellitus type 2 Osteoarthritis Osteopenia History of hiatal hernia repair Left antecubital fistula placement awaiting dialysis Full code Plan: Acute renal failure on chronic renal failure, avoid nephrotoxic drugs as possible; consultation with nephrology for recommendations and treatment plan po ssible dialysis through left fistula Hypertension, continue home medications additional antihypertensive added Apresoline 25 mg by mouth 3 times a day Diabetes mellitus type 2 continue home medications and additional sliding scale Generalized weakness consultation with physical/occupational therapy Continue DVT/GI prophylaxis Continue home medications Continue to monitor vital signs and diagnostic testing Further recommendations come based on patient's clinical condition Time with Patient: Greater than 30
[2021-02-28] MEDS ORDERED: allopurinoL 300 MG TAB PO SCH (09:00)
[2021-02-28] MEDS ORDERED: CINACALCET 30 MG TAB PO SCH (09:00)
[2021-02-28] MEDS: SPIRONOLACTONE 25 MG TAB PO SCH (09:08)
[2021-02-28] MEDS: INSULIN ASPART (NovoLOG) 100 UNIT/ML VIAL SQ SCH ×7 (09:11→21:58)
[2021-02-28] MEDS: HEPARIN SODIUM,PORCINE/PF 5,000 UNIT/0.5 ML SYRINGE SQ SCH ×2 (09:11→21:57)
[2021-02-28] MEDS: hydrALAZINE HCL 25 MG TAB PO SCH ×3 (09:12→21:57)
[2021-02-28] MEDS: FAMOTIDINE 20 MG TAB PO SCH (09:12)
[2021-02-28] MEDS: FUROSEMIDE 20 MG TAB PO SCH (09:12)
[2021-02-28] MEDS: ATORVASTATIN 40 MG TAB PO SCH (09:12)
[2021-02-28] MEDS: carvediloL 6.25 MG TAB PO SCH ×2 (09:45→18:08)
[2021-02-28 10:02] LABS: African American GFR (CKD) 14 (>60 ml/min/1.73 sqM); Anion Gap 12 mmol/L; Blood Urea Nitrogen 89 mg/dL (7-17); Carbon Dioxide 21 mmol/L (22-30); Chloride 107 mmol/L (98-107); Glucose 280 mg/dL (74-99); Magnesium 2.3 mg/dL (1.6-2.3); Non-African American GFR(CKD) 12 (>60 ml/min/1.73 sqM); Phosphorus 4.5 mg/dL (2.5-4.5); Potassium 3.8 mmol/L (3.5-5.1); Sodium 140 mmol/L (137-145)
[2021-02-28 11:32] LABS: Glucose,Whole Blood 227 mg/dL (75-99)
[2021-02-28] MEDS ORDERED: LIDOCAINE 4% CREAM 5 GM TUBE TOPICAL ONE ×2 (12:00→17:27)
[2021-02-28] MEDS: ACETAMINOPHEN TAB 325 MG TAB PO PRN (13:29)
--- NOTE | 2021-02-28 13:40 | CONS ---
CONSULTATION REASON FOR CONSULTATION: Renal failure. HISTORY OF PRESENT ILLNESS: Patient is a 75-year-old female with chronic kidney disease, NKF stage 5, who has a left upper arm AV fistula. The patient was admitted to the hospital with complaints of increased shortness of breath and fatigue over the past few days, mostly a week or so. The patient had initially been on dialysis temporarily about 4 years ago and was able to come off. We have been closely monitoring her and she has been reluctant to resume renal replacement therapy; however, after this admission I have discussed with her regarding need to start dialysis, and she is agreeable. The patient is concerned about social issues where she will not be going back home and will be going to assisted living. No complaints of nausea or vomiting. No fevers or chills, diarrhea or abdominal pain. PAST MEDICAL HISTORY: CKD, CKD mineral bone disorder, hypertension, type 2 diabetes, history of CVA/TIA, osteoarthritis. PAST SURGICAL HISTORY: Adenoidectomy appendectomy, tonsillectomy, removal of fatty tumor, hernia repair, colonoscopy, left arm AV fistula with revision. SOCIAL HISTORY: Negative for smoking, drug abuse or alcohol abuse. MEDICATIONS: Medications prior to admission included Sensipar, Aldactone, Zyloprim, Lasix, insulin, Coreg, Crestor. ALLERGIES: ALLERGIES include ADHESIVE TAPE, CODEINE, ERYTHROMYCIN, PENICILLIN. REVIEW OF SYSTEMS: As per HPI. Other systems negative. PHYSICAL EXAMINATION: Patient is comfortable, awake, alert, oriented x3, not in any acute distress. Blood pressure was 170/67, heart rate 68 per minute. Patient is afebrile. EXAMINATION OF THE HEART: S1 and S2. EXAMINATION OF LUNGS: Bilateral breath sounds are heard. ABDOMEN: Soft, nontender. LOWER EXTREMITIES: Examination of lower extremities shows edema 1+ bilaterally. 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 LABS: Sodium 140, potassium 3.8, chloride 107. CO2 is 21, BUN 89, creatinine 3.59. ASSESSMENT: 1. Chronic kidney disease, stage 5, with subtle uremic symptoms and volume overload. Will proceed with starting renal replacement therapy. Patient will have her first treatment today. Discharge plan is to arrange for outpatient chair time. Patient has been at the [facility] unit, and she states that she would like to go back there. 2. Mild volume overload. Expect improvement with starting renal replacement therapy. Continue with p.o. Lasix. 3. Chronic kidney disease mineral bone disorder, maintained on Sensipar. The patient has had history of hypercalcemia as well. We will continue with the Sensipar for now. Calcium is at 10. 4. Hypertension, partly volume-sensitive. May improve post dialysis today. In the meantime, we can increase the Coreg to 12.5 mg if blood pressure remains elevated post dialysis. PLAN: Proceed with starting renal replacement therapy. Discharge planning to arrange for outpatient chair time with plan for second treatment tomorrow. Use 17-gauge needles. Thank you for this consultation. We will continue to follow the patient with you during her hospitalization. MMODL / IJN: [id number] /
[2021-02-28 16:11] LABS: Hepatitis B Surface AB- Quant <3.5 mIU/mL; Hepatitis B Surface Antibody Non-Reactive (Non-Reactive); Hepatitis B Surface Antigen Non-Reactive (Non-Reactive)
[2021-02-28 17:39] LABS: Glucose,Whole Blood 145 mg/dL (75-99)
[2021-02-28] MEDS: FUROSEMIDE 40 MG TAB PO SCH (18:08)
[2021-02-28 21:12] LABS: Glucose,Whole Blood 193 mg/dL (75-99)
[2021-02-28] MEDS: CINACALCET 30 MG TAB PO SCH (21:57)
[2021-02-28] MEDS: INSULIN DETEMIR (LEVEMIR) 100 UNIT/ML SYR SQ SCH (21:59)
[2021-03-01 07:37] LABS: Glucose,Whole Blood 142 mg/dL (75-99)
[2021-03-01] MEDS: ATORVASTATIN 40 MG TAB PO SCH (08:28)
[2021-03-01] MEDS: allopurinoL 100 MG TAB PO SCH (08:28)
[2021-03-01] MEDS: FAMOTIDINE 20 MG TAB PO SCH (08:28)
[2021-03-01] MEDS: INSULIN ASPART (NovoLOG) 100 UNIT/ML VIAL SQ SCH ×7 (08:28→21:04)
[2021-03-01] MEDS: HEPARIN SODIUM,PORCINE/PF 5,000 UNIT/0.5 ML SYRINGE SQ SCH ×2 (08:29→21:04)
[2021-03-01] MEDS: carvediloL 6.25 MG TAB PO SCH ×2 (08:32→17:40)
[2021-03-01] MEDS: hydrALAZINE HCL 25 MG TAB PO SCH ×3 (10:33→21:04)
[2021-03-01] MEDS: SPIRONOLACTONE 25 MG TAB PO SCH (10:33)
[2021-03-01] MEDS: FUROSEMIDE 20 MG TAB PO SCH (10:33)
--- NOTE | 2021-03-01 10:58 | P.PN ---
Subjective Progress Note Date: 03/01/21 Principal diagnosis: This is a 75-year-old patient with CAPD since 5 started on dialysis yesterday. She has a fistula in the left upper arm around her elbow laterally. Supposedly she was on attempted dialysis 4 years ago and could not be done because of pain when they're inserting needle and she walked out of there. Did well until recently when she started to have shortness of breath and some fatigue for the last few days prior to admission. She was initially reluctant to start dialysis and after her first dialysis yesterday she is feeling little bit better less short of breath. Did have some cramps in her legs She is known with hypertension and diabetes type 2 previous history of TIA. Objective - Vital Signs Vital signs: Vital Signs Temp 97.9 F 03/01/21 07:35 Pulse 64 03/01/21 07:35 Resp 16 03/01/21 07:35 BP 153/75 03/01/21 07:35 Pulse Ox 96 03/01/21 07:35 Intake & Output 02/28/21 03/01/21 03/01/21 18:59 06:59 18:59 Intake Total 1020 Output Total 1000 Balance -1000 1020 Weight 77.111 kg Intake: Oral 1020 Output: Hemodialysis 1000 Other: Voiding Method Toilet Diaper Incontinent # Voids 2 1 On examination is awake alert oriented comfortable HEENT exam no JVP neck is supple no facial asymmetry Lungs are clear to auscultation good air entry bilaterally Heart sounds unremarkable for any murmur rub or gallop Abdomen soft nontender Extreme exam trace edema Neurologically awake alert oriented. Generalized weakness though. - Labs CBC & Chem 7: 02/27/21 11:41 02/28/21 09:23 Labs: Abnormal Lab Results - Last 24 Hours (Table) 02/28/21 02/28/21 02/28/21 Range/Units 11:30 17:38 21:09 POC Glucose (mg/dL) 227 H 145 H 193 H (75-99) mg/dL 03/01/21 Range/Units 07:35 POC Glucose (mg/dL) 142 H (75-99) mg/dL Assessment and Plan Assessment: Impression 1. ESRD, started on dialysis yesterday 02/28/2021. Etiology is likely diabetes and nephrosclerosis 2. Admitted with shortness of breath and fatigue improving. 3 left upper arm fistula functioning well 4. Hyperparathyroidism on Sensipar 5. Hypertension controlled now. 6. Anemia hemoglobin is at target 10.5 Recommendation She is scheduled for dialysis today she could be discharged once the dialysis placement is taken care of off.
[2021-03-01 11:59] LABS: Basophils # (A) 0.03 X 10*3/uL (0.00-0.10); Basophils % (A) 0.5 %; Eosinophils # (A) 0.36 X 10*3/uL (0.04-0.35); Eosinophils % (A) 5.4 %; HCT 29.1 % (37.2-46.3); HGB 8.9 g/dL (12.0-15.0); Lymphocytes # (A) 1.87 X 10*3/uL (0.90-5.00); Lymphocytes % (A) 28.2 %; MCH 31.7 pg (27.0-32.0); MCHC 30.6 g/dL (32.0-37.0); MCV 103.6 fL (80.0-97.0); Mean Platelet Volume 12.2 fL (9.5-12.2); Monocytes # (A) 0.92 X 10*3/uL (0.20-1.00); Monocytes % (A) 13.9 %; Neutrophils # (A) 3.44 X 10*3/uL (1.80-7.70); Neutrophils % (A) 51.8 %; Platelet Count 200 X 10*3/uL (140-440); RBC 2.81 X 10*6/uL (4.10-5.20); RDW 14.6 % (11.5-14.5); WBC 6.63 X 10*3/uL (4.50-10.00)
[2021-03-01 12:07] LABS: Glucose,Whole Blood 343 mg/dL (75-99)
[2021-03-01 17:14] LABS: Glucose,Whole Blood 131 mg/dL (75-99)
[2021-03-01] MEDS: FUROSEMIDE 40 MG TAB PO SCH (17:40)
[2021-03-01 20:52] LABS: Glucose,Whole Blood 119 mg/dL (75-99)
[2021-03-01] MEDS: INSULIN DETEMIR (LEVEMIR) 100 UNIT/ML SYR SQ SCH (21:04)
[2021-03-01 22:50] LABS: African American GFR (CKD) 14.7 (60.0-200.0); Albumin 4.1 g/dL (3.80-4.90); Albumin/Globulin Ratio 1.95 (1.60-3.17); Anion Gap 18.4 mmol/L (4.00-12.00); BUN/Creat Ratio 21.76 Ratio (12.00-20.00); Calcium 9.5 mg/dL (8.7-10.3); Carbon Dioxide 16.6 mmol/L (21.6-31.8); Globulin 2.1 g/dL (1.6-3.3); Magnesium 4.1 mg/dL (1.5-2.4); Non-African American GFR(CKD) 12.7 (60.0-200.0); Phosphorus 4.2 mg/dL (2.4-5.1); Potassium 4.1 mmol/L (3.5-5.5); Total Bilirubin 0.3 mg/dL (0.3-1.2); Total Protein 6.2 g/dL (6.2-8.2)
[2021-03-02] MEDS: ACETAMINOPHEN TAB 325 MG TAB PO PRN (01:36)
[2021-03-02 07:26] LABS: Glucose,Whole Blood 116 mg/dL (75-99)
[2021-03-02] MEDS: INSULIN ASPART (NovoLOG) 100 UNIT/ML VIAL SQ SCH ×7 (08:34→22:14)
[2021-03-02] MEDS: allopurinoL 100 MG TAB PO SCH (08:51)
[2021-03-02] MEDS: ATORVASTATIN 40 MG TAB PO SCH (08:51)
[2021-03-02] MEDS: hydrALAZINE HCL 25 MG TAB PO SCH ×3 (08:51→22:13)
[2021-03-02] MEDS: carvediloL 6.25 MG TAB PO SCH ×2 (08:51→17:44)
[2021-03-02] MEDS: FUROSEMIDE 20 MG TAB PO SCH (08:51)
[2021-03-02] MEDS: FAMOTIDINE 20 MG TAB PO SCH (08:52)
[2021-03-02] MEDS: HEPARIN SODIUM,PORCINE/PF 5,000 UNIT/0.5 ML SYRINGE SQ SCH ×2 (08:52→22:13)
[2021-03-02] MEDS: SPIRONOLACTONE 25 MG TAB PO SCH (08:52)
--- NOTE | 2021-03-02 11:00 | P.PN ---
Subjective Progress Note Date: 03/02/21 Principal diagnosis: This is a 75-year-old patient with CKD - V started on dialysis day before yesterday, and had her second session yesterday. She is feeling fairly well had slight cramping last night. No dizziness no chest pain appetite is fair. She does feel somewhat short of breath. She has a fistula in the left upper arm around her elbow laterally. Supposedly she was on attempted dialysis 4 years ago and could not be done because of pain when they're inserting needle and she walked out of there. Did well until recently when she started to have shortness of breath and some fatigue for the last few days prior to admission. She was initially reluctant to start dialysis and after her first dialysis yesterday she is feeling little bit better less short of breath. Did have some cramps in her legs She is known with hypertension and diabetes type 2 previous history of TIA. Objective - Vital Signs Vital signs: Vital Signs Temp 97.8 F 03/02/21 07:15 Pulse 65 03/02/21 07:15 Resp 16 03/02/21 07:15 BP 125/73 03/02/21 07:15 Pulse Ox 96 03/02/21 07:15 Intake & Output 03/01/21 03/02/21 03/02/21 18:59 06:59 18:59 Intake Total 550 Output Total 1850 Balance -1300 Intake: Hemodialysis 550 Output: Hemodialysis 1850 Other: Voiding Method Toilet Toilet Toilet Diaper Diaper Diaper Incontinent Incontinent Incontinent # Voids 1 2 # Bowel Movements 0 On examination is awake alert oriented. She is on room air. HEENT exam no JVP no facial asymmetry Lungs are clear to auscultation good air entry bilaterally Heart sounds are unremarkable for any murmur rub gallop seems to be normal sinus rhythm Abdomen soft nontender Extremity exam was minimal edema Neurologically awake alert oriented no tremors - Labs CBC & Chem 7: 03/01/21 06:55 03/01/21 06:55 Labs: Abnormal Lab Results - Last 24 Hours (Table) 03/01/21 03/01/21 03/01/21 Range/Units 06:55 06:55 12:05 RBC 2.81 L (4.10-5.20) X 10*6/uL Hgb 8.9 L (12.0-15.0) g/dL Hct 29.1 L (37.2-46.3) % MCV 103.6 H (80.0-97.0) fL MCHC 30.6 L (32.0-37.0) g/dL RDW 14.6 H (11.5-14.5) % Eosinophils # 0.36 H (0.04-0.35) X 10*3/uL Chloride 110 H (96-109) mmol/L Carbon Dioxide 16.6 L (21.6-31.8) mmol/L Anion Gap 18.40 H (4.00-12.00) mmol/L BUN 74.0 H (9.0-27.0) mg/dL Creatinine 3.4 H (0.6-1.5) mg/dL Est GFR (CKD-EPI)AfAm 14.7 L (60.0-200.0) Est GFR (CKD-EPI)NonAf 12.7 L (60.0-200.0) BUN/Creatinine Ratio 21.76 H (12.00-20.00) Ratio Glucose 149 H (70-110) mg/dL POC Glucose (mg/dL) 343 H (75-99) mg/dL Magnesium 4.1 H (1.5-2.4) mg/dL 03/01/21 03/01/21 03/02/21 Range/Units 17:13 20:49 07:15 RBC (4.10-5.20) X 10*6/uL Hgb (12.0-15.0) g/dL Hct (37.2-46.3) % MCV (80.0-97.0) fL MCHC (32.0-37.0) g/dL RDW (11.5-14.5) % Eosinophils # (0.04-0.35) X 10*3/uL Chloride (96-109) mmol/L Carbon Dioxide (21.6-31.8) mmol/L Anion Gap (4.00-12.00) mmol/L BUN (9.0-27.0) mg/dL Creatinine (0.6-1.5) mg/dL Est GFR (CKD-EPI)AfAm (60.0-200.0) Est GFR (CKD-EPI)NonAf (60.0-200.0) BUN/Creatinine Ratio (12.00-20.00) Ratio Glucose (70-110) mg/dL POC Glucose (mg/dL) 131 H 119 H 116 H (75-99) mg/dL Magnesium (1.5-2.4) mg/dL Assessment and Plan Assessment: Impression 1. ESRD, started on dialysis day before yesterday 02/28/2021 had her second dialysis session yesterday. Etiology is likely diabetes and nephrosclerosis 2. Admitted with shortness of breath and fatigue improving. 3. left upper arm fistula functioning well 4. Hyperparathyroidism on Sensipar 5. Hypertension controlled now. 6. Anemia hemoglobin was at target 10.5 on 02/27/2021, hemoglobin currently is down to 8.9 yesterday on 03/01/2021 and no obvious bleeding. 7. Non-gap acidosis with bicarb Worsening to 18 from 12 and bicarb going down from 21-16, her blood sugar is 119 but was high at 282 days ago. Rule out DKA and will repeat the labs today Recommendation 1. Redo labs today to ensure that the acidosis is improved 2. Check iron saturation. 2. Continue same medications. 3. She is scheduled for dialysis tomorrow and day she could be discharged once the dialysis placement is taken care of off.
[2021-03-02 11:50] LABS: Glucose,Whole Blood 221 mg/dL (75-99)
[2021-03-02 11:51] LABS: African American GFR (CKD) 13 (>60 ml/min/1.73 sqM); Anion Gap 15 mmol/L; Blood Urea Nitrogen 67 mg/dL (7-17); Calcium 9.7 mg/dL (8.4-10.2); Carbon Dioxide 18 mmol/L (22-30); Chloride 99 mmol/L (98-107); Glucose 227 mg/dL (74-99); Non-African American GFR(CKD) 11 (>60 ml/min/1.73 sqM); Potassium 4.1 mmol/L (3.5-5.1); Sodium 132 mmol/L (137-145)
[2021-03-02 17:17] LABS: Glucose,Whole Blood 154 mg/dL (75-99)
[2021-03-02] MEDS: FUROSEMIDE 40 MG TAB PO SCH (17:44)
--- NOTE | 2021-03-02 18:53 | P.PN ---
Subjective Progress Note Date: 03/01/21 Principal diagnosis: End-stage renal disease/hemodialysis Chronic kidney disease stage IV 75-year-old female was sent to the emergency department for increasing exertional shortness of breath, and generalized weakness with associated increasing creatinine and BUN. Patient has significant medical history of stage IV kidney disease, diabetes mellitus type 2, history of CVA/TIA, hyperlipidemia, hypertension, osteoarthritis, and osteoporosis. Patient had extensive diagnostic workup in the emergency department revealing acute on chronic kidney failure. Vital signs and diagnostic testing reviewed. Consultation with nephrology for recommendations and treatment plan possible dialysis through left fistula. Objective - Vital Signs Vital signs: Vital Signs Temp 97.9 F 03/01/21 07:35 Pulse 64 03/01/21 07:35 Resp 16 03/01/21 07:35 BP 153/75 03/01/21 07:35 Pulse Ox 96 03/01/21 07:35 Intake & Output 02/28/21 03/01/21 03/01/21 18:59 06:59 18:59 Intake Total 1020 Output Total 1000 Balance -1000 1020 Weight 77.111 kg Intake: Oral 1020 Output: Hemodialysis 1000 Other: Voiding Method Toilet Diaper Incontinent # Voids 2 1 - Exam - Constitutional General appearance: Present: average body habitus, cooperative, no acute distress - EENT Eyes: Present: anicteric sclerae, EOMI, PERRLA, normal appearance ENT: Present: hearing grossly normal, normal oropharynx Ears: bilateral: normal - Neck Neck: Present: normal ROM. Absent: lymphadenopathy, rigidity, thyromegaly Carotids: negative: bruit present Thyroid: bilateral: normal size, negative: enlarged, nodule - Respiratory Respiratory: bilateral: CTA, negative: rales, rhonchi, wheezing - Cardiovascular Rhythm: regular Heart sounds: normal: S1, S2 Abnormal Heart Sounds: Absent: systolic murmur, diastolic murmur - Gastrointestinal General gastrointestinal: Present: normal bowel sounds, soft. Absent: distend ed, organomegaly, tenderness - Genitourinary Genitourinary Comment(s): deferred - Integumentary Integumentary: Present: normal turgor. Absent: jaundiced, rash, ulcer - Neurologic Neurologic: Present: CNII-XII intact. Absent: focal deficits - Musculoskeletal Musculoskeletal: Present: gait normal, strength equal bilaterally - Psychiatric Psychiatric: Present: A&O x's 3, appropriate affect, intact judgment & insight - Labs CBC & Chem 7: 03/01/21 06:55 03/02/21 11:15 Labs: Abnormal Lab Results - Last 24 Hours (Table) 02/28/21 02/28/21 03/01/21 Range/Units 17:38 21:09 06:55 RBC 2.81 L (4.10-5.20) X 10*6/uL Hgb 8.9 L (12.0-15.0) g/dL Hct 29.1 L (37.2-46.3) % MCV 103.6 H (80.0-97.0) fL MCHC 30.6 L (32.0-37.0) g/dL RDW 14.6 H (11.5-14.5) % Eosinophils # 0.36 H (0.04-0.35) X 10*3/uL POC Glucose (mg/dL) 145 H 193 H (75-99) mg/dL 03/01/21 03/01/21 Range/Units 07:35 12:05 RBC (4.10-5.20) X 10*6/uL Hgb (12.0-15.0) g/dL Hct (37.2-46.3) % MCV (80.0-97.0) fL MCHC (32.0-37.0) g/dL RDW (11.5-14.5) % Eosinophils # (0.04-0.35) X 10*3/uL POC Glucose (mg/dL) 142 H 343 H (75-99) mg/dL Assessment and Plan Assessment: Acute renal failure Chronic renal failure stage IV Renal failure awaiting transplant Hypertension Dyslipidemia Diabetes mellitus type 2 Osteoarthritis Osteopenia History of hiatal hernia repair Left antecubital fistula placement awaiting dialysis Full code Plan: Acute renal failure on chronic renal failure, avoid nephrotoxic drugs as possible; consultation with nephrology for recommendations and treatment plan possible dialysis through left fistula Hypertension, continue home medications additional antihypertensive added Apresoline 25 mg by mouth 3 times a day Diabetes mellitus type 2 continue home medications and additional sliding scale Generalized weakness consultation with physical/occupational therapy Continue DVT/GI prophylaxis Continue home medications Continue to monitor vital signs and diagnostic testing Further recommendations come based on patient's clinical condition
--- NOTE | 2021-03-02 18:55 | P.PN ---
Subjective Progress Note Date: 03/02/21 Principal diagnosis: End-stage renal disease/hemodialysis Chronic kidney disease stage IV 75-year-old female was sent to the emergency department for increasing exertional shortness of breath, and generalized weakness with associated increasing creatinine and BUN. Patient has significant medical history of stage IV kidney disease, diabetes mellitus type 2, history of CVA/TIA, hyperlipidemia, hypertension, osteoarthritis, and osteoporosis. Patient had extensive diagnostic workup in the emergency department revealing acute on chronic kidney failure. Vital signs and diagnostic testing reviewed. Consultation with nephrology for recommendations and treatment plan possible dialysis through left fistula. 03/02/2021 Patient is seen and evaluated sitting up in bedside chair; denies any complaint of chest pain or shortness of breath Vital signs are reviewed temperature of 98.1, pulse 65, respirations 16 and blood pressure 145/71; O2 saturation of 98% Lab review reveals sodium 132, potassium 4.1, BUN of 67 with creatinine of 3.77 Patient is being followed by nephrology and has had 2 dialysis sessions with plans to repeat dialysis tomorrow morning; patient to be discharged once outpatient dialysis arrangements are made Objective - Vital Signs Vital signs: Vital Signs Temp 97.8 F 03/02/21 07:15 Pulse 65 03/02/21 07:15 Resp 16 03/02/21 07:15 BP 125/73 03/02/21 07:15 Pulse Ox 96 03/02/21 07:15 Intake & Output 03/01/21 03/02/21 03/02/21 18:59 06:59 18:59 Intake Total 550 Output Total 1850 Balance -1300 Intake: Hemodialysis 550 Output: Hemodialysis 1850 Other: Voiding Method Toilet Toilet Toilet Diaper Diaper Diaper Incontinent Incontinent Incontinent # Voids 1 2 # Bowel Movements 0 - Exam - Constitutional General appearance: Present: average body habitus, cooperative, no acute distress - EENT Eyes: Present: anicteric sclerae, EOMI, PERRLA, normal appearance ENT: Present: hearing grossly normal, normal oropharynx Ears: bilateral: normal - Neck Neck: Present: normal ROM. Absent: lymphadenopathy, rigidity, thyromegaly Carotids: negative: bruit present Thyroid: bilateral: normal size, negative: enlarged, nodule - Respiratory Respiratory: bilateral: CTA, negative: rales, rhonchi, wheezing - Cardiovascular Rhythm: regular Heart sounds: normal: S1, S2 Abnormal Heart Sounds: Absent: systolic murmur, diastolic murmur - Gastrointestinal General gastrointestinal: Present: normal bowel sounds, soft. Absent: distende d, organomegaly, tenderness - Genitourinary Genitourinary Comment(s): deferred - Integumentary Integumentary: Present: normal turgor. Absent: jaundiced, rash, ulcer - Neurologic Neurologic: Present: CNII-XII intact. Absent: focal deficits - Musculoskeletal Musculoskeletal: Present: gait normal, strength equal bilaterally - Psychiatric Psychiatric: Present: A&O x's 3, appropriate affect, intact judgment & insight - Labs CBC & Chem 7: 03/01/21 06:55 03/02/21 11:15 Labs: Abnormal Lab Results - Last 24 Hours (Table) 03/01/21 03/01/21 03/01/21 Range/Units 06:55 17:13 20:49 Sodium (137-145) mmol/L Chloride 110 H (96-109) mmol/L Carbon Dioxide 16.6 L (21.6-31.8) mmol/L Anion Gap 18.40 H (4.00-12.00) mmol/L BUN 74.0 H (9.0-27.0) mg/dL Creatinine 3.4 H (0.6-1.5) mg/dL Est GFR (CKD-EPI)AfAm 14.7 L (60.0-200.0) Est GFR (CKD-EPI)NonAf 12.7 L (60.0-200.0) BUN/Creatinine Ratio 21.76 H (12.00-20.00) Ratio Glucose 149 H (70-110) mg/dL POC Glucose (mg/dL) 131 H 119 H (75-99) mg/dL Magnesium 4.1 H (1.5-2.4) mg/dL 03/02/21 03/02/21 03/02/21 Range/Units 07:15 11:15 11:48 Sodium 132 L (137-145) mmol/L Chloride (96-109) mmol/L Carbon Dioxide 18 L (21.6-31.8) mmol/L Anion Gap (4.00-12.00) mmol/L BUN 67 H (9.0-27.0) mg/dL Creatinine 3.77 H (0.6-1.5) mg/dL Est GFR (CKD-EPI)AfAm (60.0-200.0) Est GFR (CKD-EPI)NonAf (60.0-200.0) BUN/Creatinine Ratio (12.00-20.00) Ratio Glucose 227 H (70-110) mg/dL POC Glucose (mg/dL) 116 H 221 H (75-99) mg/dL Magnesium (1.5-2.4) mg/dL Assessment and Plan Assessment: Acute renal failure Chronic renal failure stage IV Renal failure awaiting transplant Hypertension Dyslipidemia Diabetes mellitus type 2 Osteoarthritis Osteopenia History of hiatal hernia repair Left antecubital fistula placement awaiting dialysis Full code Plan: Acute renal failure on chronic renal failure, avoid nephrotoxic drugs as possible; consultation with nephrology for recommendations and treatment plan possible dialysis through left fistula Hypertension, continue home medications additional antihypertensive added Apresoline 25 mg by mouth 3 times a day Diabetes mellitus type 2 continue home medications and additional sliding scale Generalized weakness consultation with physical/occupational therapy Continue DVT/GI prophylaxis Continue home medications Continue to monitor vital signs and diagnostic testing Further recommendations come based on patient's clinical condition
[2021-03-02 20:37] LABS: Glucose,Whole Blood 133 mg/dL (75-99)
[2021-03-02] MEDS: INSULIN DETEMIR (LEVEMIR) 100 UNIT/ML SYR SQ SCH (22:13)
[2021-03-03 07:27] LABS: Glucose,Whole Blood 127 mg/dL (75-99)
[2021-03-03] MEDS: ATORVASTATIN 40 MG TAB PO SCH (08:33)
[2021-03-03] MEDS: FAMOTIDINE 20 MG TAB PO SCH (08:33)
[2021-03-03] MEDS: allopurinoL 100 MG TAB PO SCH (08:33)
[2021-03-03] MEDS: HEPARIN SODIUM,PORCINE/PF 5,000 UNIT/0.5 ML SYRINGE SQ SCH ×2 (08:34→21:35)
[2021-03-03] MEDS: INSULIN ASPART (NovoLOG) 100 UNIT/ML VIAL SQ SCH ×7 (08:34→21:35)
[2021-03-03] MEDS: ACETAMINOPHEN TAB 325 MG TAB PO PRN ×2 (08:38→21:35)
--- NOTE | 2021-03-03 09:59 | P.PN ---
Subjective Patient is seen in follow-up for chronic kidney disease stage V now end-stage renal disease started on hemodialysis this admission. Currently sitting up in chair. No chest pain or shortness of breath. Hemodynamically stable. Vital signs are stable. General: The patient appeared well nourished and normally developed. HEENT: Head exam is unremarkable. Neck is without jugular venous distension. LUNGS: Breath sounds decreased. HEART: Rate and Rhythm are regular. ABDOMEN: Soft, no distention. EXTREMITITES: No edema. Objective - Vital Signs Vital signs: Vital Signs Temp 98.2 F 03/03/21 08:00 Pulse 66 03/03/21 08:00 Resp 16 03/03/21 08:00 BP 135/73 03/03/21 08:00 Pulse Ox 96 03/03/21 08:00 Intake & Output 03/02/21 03/03/21 03/03/21 18:59 06:59 18:59 Intake Total 298 Balance 298 Intake: Oral 298 Other: Voiding Method Toilet Toilet Diaper Diaper Incontinent Incontinent # Voids 2 3 # Bowel Movements 1 - Labs CBC & Chem 7: 03/01/21 06:55 03/02/21 11:15 Labs: Abnormal Lab Results - Last 24 Hours (Table) 03/02/21 03/02/21 03/02/21 Range/Units 11:15 11:48 17:15 Sodium 132 L (137-145) mmol/L Carbon Dioxide 18 L (22-30) mmol/L BUN 67 H (7-17) mg/dL Creatinine 3.77 H (0.52-1.04) mg/dL Glucose 227 H (74-99) mg/dL POC Glucose (mg/dL) 221 H 154 H (75-99) mg/dL 03/02/21 03/03/21 Range/Units 20:35 07:26 Sodium (137-145) mmol/L Carbon Dioxide (22-30) mmol/L BUN (7-17) mg/dL Creatinine (0.52-1.04) mg/dL Glucose (74-99) mg/dL POC Glucose (mg/dL) 133 H 127 H (75-99) mg/dL Assessment and Plan Plan: Assessment: 1. End-stage renal disease started on hemodialysis this admission. Etiology is nephrosclerosis and diabetic kidney disease. Noted to have bilateral atrophic kidneys. No hydronephrosis noted. 2. Diabetes mellitus. 3. Hyponatremia secondary to chronic kidney disease as well as hypertonicity from hyperglycemia. 4. Metabolic acidosis secondary to chronic kidney disease. 5. Anemia of chronic kidney disease. Rule out iron deficiency. No active bleeding. Plan: Hemodialysis today. Add oral bicarb. Check iron studies. manager technology following to set up outpatient hemodialysis.
[2021-03-03] MEDS ORDERED: LIDOCAINE 4% CREAM 5 GM TUBE TOPICAL ONE (10:11)
[2021-03-03 11:57] LABS: Glucose,Whole Blood 217 mg/dL (75-99)
[2021-03-03] MEDS: SODIUM BICARBONATE TAB 650 MG TAB PO SCH ×2 (12:29→21:35)
[2021-03-03 14:50] LABS: ALT 13 U/L (4-34); AST 25 U/L (14-36); African American GFR (CKD) 12 (>60 ml/min/1.73 sqM); Albumin/Globulin Ratio 1.6; Alkaline Phosphatase 59 U/L (38-126); Anion Gap 13 mmol/L; Blood Urea Nitrogen 77 mg/dL (7-17); Calcium 10.1 mg/dL (8.4-10.2); Carbon Dioxide 18 mmol/L (22-30); Chloride 100 mmol/L (98-107); Globulin 2.5 g/dL; Glucose 258 mg/dL (74-99); Non-African American GFR(CKD) 10 (>60 ml/min/1.73 sqM); Potassium 4.2 mmol/L (3.5-5.1); Sodium 131 mmol/L (137-145); Total Bilirubin 0.3 mg/dL (0.2-1.3); Total Protein 6.5 g/dL (6.3-8.2)
[2021-03-03] MEDS: carvediloL 6.25 MG TAB PO SCH ×2 (15:48→18:31)
[2021-03-03] MEDS: hydrALAZINE HCL 25 MG TAB PO SCH ×3 (15:49→21:35)
[2021-03-03] MEDS: FUROSEMIDE 20 MG TAB PO SCH (15:49)
[2021-03-03] MEDS: SPIRONOLACTONE 25 MG TAB PO SCH (15:49)
[2021-03-03 17:50] LABS: Glucose,Whole Blood 105 mg/dL (75-99)
[2021-03-03] MEDS: FUROSEMIDE 40 MG TAB PO SCH (18:30)
[2021-03-03 20:15] LABS: % Iron Saturation 18.45 (12.00-45.00)
[2021-03-03 20:31] LABS: Glucose,Whole Blood 199 mg/dL (75-99)
[2021-03-03] MEDS: INSULIN DETEMIR (LEVEMIR) 100 UNIT/ML SYR SQ SCH (21:34)
[2021-03-03] MEDS: CINACALCET 30 MG TAB PO SCH (21:35)
[2021-03-04 07:31] LABS: Glucose,Whole Blood 113 mg/dL (75-99)
[2021-03-04] MEDS: FUROSEMIDE 20 MG TAB PO SCH (08:18)
[2021-03-04] MEDS: FAMOTIDINE 20 MG TAB PO SCH (08:18)
[2021-03-04] MEDS: ATORVASTATIN 40 MG TAB PO SCH (08:18)
[2021-03-04] MEDS: hydrALAZINE HCL 25 MG TAB PO SCH ×2 (08:18→18:03)
[2021-03-04] MEDS: SPIRONOLACTONE 25 MG TAB PO SCH (08:19)
[2021-03-04] MEDS: allopurinoL 100 MG TAB PO SCH (08:20)
[2021-03-04] MEDS: INSULIN ASPART (NovoLOG) 100 UNIT/ML VIAL SQ SCH ×7 (08:21→22:29)
[2021-03-04] MEDS: carvediloL 6.25 MG TAB PO SCH ×2 (08:22→18:04)
[2021-03-04] MEDS: SODIUM BICARBONATE TAB 650 MG TAB PO SCH ×2 (08:23→22:30)
[2021-03-04] MEDS: HEPARIN SODIUM,PORCINE/PF 5,000 UNIT/0.5 ML SYRINGE SQ SCH ×2 (08:25→22:30)
[2021-03-04] MEDS: ACETAMINOPHEN TAB 325 MG TAB PO PRN ×2 (08:53→18:03)
[2021-03-04 09:33] LABS: Basophils # (A) 0.03 X 10*3/uL (0.00-0.10); Basophils % (A) 0.5 %; Eosinophils # (A) 0.44 X 10*3/uL (0.04-0.35); Eosinophils % (A) 7.1 %; HCT 27.5 % (37.2-46.3); HGB 8.7 g/dL (12.0-15.0); Lymphocytes # (A) 1.87 X 10*3/uL (0.90-5.00); Lymphocytes % (A) 30.2 %; MCH 32.6 pg (27.0-32.0); MCHC 31.6 g/dL (32.0-37.0); Mean Platelet Volume 12.8 fL (9.5-12.2); Monocytes # (A) 0.83 X 10*3/uL (0.20-1.00); Monocytes % (A) 13.4 %; Neutrophils # (A) 2.99 X 10*3/uL (1.80-7.70); Neutrophils % (A) 48.3 %; Platelet Count 164 X 10*3/uL (140-440); RBC 2.67 X 10*6/uL (4.10-5.20); RDW 14.8 % (11.5-14.5); WBC 6.19 X 10*3/uL (4.50-10.00)
--- NOTE | 2021-03-04 09:58 | P.PN ---
Subjective Patient is seen in follow-up for chronic kidney disease stage V now end-stage renal disease started on hemodialysis this admission. Currently sitting up in chair. No chest pain or shortness of breath. Hemodynamically stable. Completed hemodialysis yesterday with nearly 1 L ultrafiltration. Vital signs are stable. General: The patient appeared well nourished and normally developed. HEENT: Head exam is unremarkable. Neck is without jugular venous distension. LUNGS: Breath sounds decreased. HEART: Rate and Rhythm are regular. ABDOMEN: Soft, no distention. EXTREMITITES: No edema. Objective - Vital Signs Vital signs: Vital Signs Temp 97.3 F L 03/04/21 08:03 Pulse 65 03/04/21 08:03 Resp 16 03/04/21 08:03 BP 135/75 03/04/21 08:03 Pulse Ox 97 03/04/21 08:03 Intake & Output 03/03/21 03/04/21 03/04/21 18:59 06:59 18:59 Intake Total 2048 Output Total 950 Balance 1098 Intake: Oral 1498 Hemodialysis 550 Output: Hemodialysis 950 Other: Voiding Method Toilet Toilet Toilet Diaper Diaper Diaper Incontinent Incontinent Incontinent # Voids 4 1 1 # Bowel Movements 1 - Labs CBC & Chem 7: 03/04/21 06:12 03/03/21 10:03 Labs: Abnormal Lab Results - Last 24 Hours (Table) 03/03/21 03/03/21 03/03/21 Range/Units 10:03 10:03 11:55 RBC (4.10-5.20) X 10*6/uL Hgb (12.0-15.0) g/dL Hct (37.2-46.3) % MCV (80.0-97.0) fL MCH (27.0-32.0) pg MCHC (32.0-37.0) g/dL RDW (11.5-14.5) % MPV (9.5-12.2) fL Eosinophils # (0.04-0.35) X 10*3/uL Sodium 131 L (137-145) mmol/L Carbon Dioxide 18 L (22-30) mmol/L BUN 77 H (7-17) mg/dL Creatinine 4.06 H (0.52-1.04) mg/dL Glucose 258 H (74-99) mg/dL POC Glucose (mg/dL) 217 H (75-99) mg/dL Ferritin 342.0 H (10.0-291.0) ng/mL 03/03/21 03/03/21 03/04/21 Range/Units 17:48 20:29 06:12 RBC 2.67 L (4.10-5.20) X 10*6/uL Hgb 8.7 L (12.0-15.0) g/dL Hct 27.5 L (37.2-46.3) % MCV 103.0 H (80.0-97.0) fL MCH 32.6 H (27.0-32.0) pg MCHC 31.6 L (32.0-37.0) g/dL RDW 14.8 H (11.5-14.5) % MPV 12.8 H (9.5-12.2) fL Eosinophils # 0.44 H (0.04-0.35) X 10*3/uL Sodium (137-145) mmol/L Carbon Dioxide (22-30) mmol/L BUN (7-17) mg/dL Creatinine (0.52-1.04) mg/dL Glucose (74-99) mg/dL POC Glucose (mg/dL) 105 H 199 H (75-99) mg/dL Ferritin (10.0-291.0) ng/mL 03/04/21 Range/Units 07:30 RBC (4.10-5.20) X 10*6/uL Hgb (12.0-15.0) g/dL Hct (37.2-46.3) % MCV (80.0-97.0) fL MCH (27.0-32.0) pg MCHC (32.0-37.0) g/dL RDW (11.5-14.5) % MPV (9.5-12.2) fL Eosinophils # (0.04-0.35) X 10*3/uL Sodium (137-145) mmol/L Carbon Dioxide (22-30) mmol/L BUN (7-17) mg/dL Creatinine (0.52-1.04) mg/dL Glucose (74-99) mg/dL POC Glucose (mg/dL) 113 H (75-99) mg/dL Ferritin (10.0-291.0) ng/mL Assessment and Plan Plan: Assessment: 1. End-stage renal disease started on hemodialysis this admission. Etiology is nephrosclerosis and diabetic kidney disease. Noted to have bilateral atrophic kidneys. No hydronephrosis noted. 2. Diabetes mellitus. 3. Hyponatremia secondary to chronic kidney disease as well as hypertonicity from hyperglycemia. 4. Metabolic acidosis secondary to chronic kidney disease. Maintained on oral bicarb. 5. Anemia of chronic kidney disease. Iron deficiency noted. No active bleeding. Plan: Hemodialysis tomorrow. Add IV iron. industrial organization manager following to set up outpatient hemodialysis.
[2021-03-04 10:14] LABS: Magnesium 2.1 mg/dL (1.5-2.4); Phosphorus 5.4 mg/dL (2.4-5.1)
[2021-03-04] MEDS ORDERED: SODIUM FERRIC GLUCONAT-SUCROSE 125 MG in SODIUM CHLORIDE 0.9% 100 ML IVPB ONE (10:15)
--- NOTE | 2021-03-04 10:48 | P.PN ---
Subjective Progress Note Date: 03/03/21 Principal diagnosis: End-stage renal disease/hemodialysis Chronic kidney disease stage IV 75-year-old female was sent to the emergency department for increasing exertional shortness of breath, and generalized weakness with associated increasing creatinine and BUN. Patient has significant medical history of stage IV kidney disease, diabetes mellitus type 2, history of CVA/TIA, hyperlipidemia, hypertension, osteoarthritis, and osteoporosis. Patient had extensive diagnostic workup in the emergency department revealing acute on chronic kidney failure. Vital signs and diagnostic testing reviewed. Consultation with nephrology for recommendations and treatment plan possible dialysis through left fistula. 03/02/2021 Patient is seen and evaluated sitting up in bedside chair; denies any complaint of chest pain or shortness of breath Vital signs are reviewed temperature of 98.1, pulse 65, respirations 16 and blood pressure 145/71; O2 saturation of 98% Lab review reveals sodium 132, potassium 4.1, BUN of 67 with creatinine of 3.77 Patient is being followed by nephrology and has had 2 dialysis sessions with plans to repeat dialysis tomorrow morning; patient to be discharged once outpatient dialysis arrangements are made. 03/03/2021 Patient is currently sitting in the bed comfortably. Completed hemodialysis session today. Patient became nauseous and was only 500 mL fluid removed. Patient denied any complaints of chest pain or shortness of breath. No headache or dizziness or lightheadedness. PTOT will be consulted and patient will need outpatient hemodialysis set up. Current medications reviewed. Objective - Vital Signs Vital signs: Vital Signs Temp 98.2 F 03/03/21 08:00 Pulse 66 03/03/21 08:00 Resp 16 03/03/21 08:00 BP 135/73 03/03/21 08:00 Pulse Ox 96 03/03/21 08:00 Intake & Output 03/02/21 03/03/21 03/03/21 18:59 06:59 18:59 Intake Total 298 Balance 298 Intake: Oral 298 Other: Voiding Method Toilet Toilet Toilet Diaper Diaper Diaper Incontinent Incontinent Incontinent # Voids 2 3 # Bowel Movements 1 - Exam - Exam - Constitutional General appearance: Present: average body habitus, cooperative, no acute distress - EENT Eyes: Present: anicteric sclerae, EOMI, PERRLA, normal appearance ENT: Present: hearing grossly normal, normal oropharynx Ears: bilateral: normal - Neck Neck: Present: normal ROM. Absent: lymphadenopathy, rigidity, thyromegaly Carotids: negative: bruit present Thyroid: bilateral: normal size, negative: enlarged, nodule - Respiratory Respiratory: bilateral: CTA, negative: rales, rhonchi, wheezing - Cardiovascular Rhythm: regular Heart sounds: normal: S1, S2 Abnormal Heart Sounds: Absent: systolic murmur, diastolic murmur - Gastrointestinal General gastrointestinal: Present: normal bowel sounds, soft. Absent: distended, organomegaly, tenderness - Genitourinary Genitourinary Comment(s): deferred - Integumentary Integumentary: Present: normal turgor. Absent: jaundiced, rash, ulcer - Neurologic Neurologic: Present: CNII-XII intact. Absent: focal deficits - Musculoskeletal Musculoskeletal: Present: gait normal, strength equal bilaterally - Psychiatric Psychiatric: Present: A&O x's 3, appropriate affect, intact judgment & insight - Labs CBC & Chem 7: 03/04/21 06:12 03/03/21 10:03 Labs: Abnormal Lab Results - Last 24 Hours (Table) 03/02/21 03/02/21 03/02/21 Range/Units 11:15 11:48 17:15 Sodium 132 L (137-145) mmol/L Carbon Dioxide 18 L (22-30) mmol/L BUN 67 H (7-17) mg/dL Creatinine 3.77 H (0.52-1.04) mg/dL Glucose 227 H (74-99) mg/dL POC Glucose (mg/dL) 221 H 154 H (75-99) mg/dL 03/02/21 03/03/21 Range/Units 20:35 07:26 Sodium (137-145) mmol/L Carbon Dioxide (22-30) mmol/L BUN (7-17) mg/dL Creatinine (0.52-1.04) mg/dL Glucose (74-99) mg/dL POC Glucose (mg/dL) 133 H 127 H (75-99) mg/dL Assessment and Plan Assessment: Acute on Chronic renal failure stage IV. Initiated on hemodialysis during this admission. 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 continue home medications additional antihypertensive added Apresoline 25 mg by mouth 3 times a day Diabetes mellitus type 2 continue home medications and additional sliding scale Generalized weakness consultation with physical/occupational therapy Continue DVT/GI prophylaxis Continue to monitor vital signs and diagnostic testing. Continue to follow closely. PTOT consulted. Patient will need outpatient hemodialysis arrange ments. Time with Patient: Greater than 30
[2021-03-04 12:18] LABS: Glucose,Whole Blood 130 mg/dL (75-99)
[2021-03-04] MEDS: FERROUS SULFATE ORAL ELIXIR 300 MG/5 ML CUP PO SCH (14:43)
[2021-03-04 16:17] VITALS: RESP 16
[2021-03-04 17:43] LABS: Glucose,Whole Blood 286 mg/dL (75-99)
--- NOTE | 2021-03-04 17:51 | P.PN ---
Subjective Progress Note Date: 03/04/21 Principal diagnosis: acute on chronic kidney failure Hypertension 75-year-old female was sent to the emergency department for increasing exertional shortness of breath, and generalized weakness with associated increasing creatinine and BUN. Patient has significant medical history of stage IV kidney disease, diabetes mellitus type 2, history of CVA/TIA, hyperlipidemia, hypertension, osteoarthritis, and osteoporosis. Patient had extensive diagnostic workup in the emergency department revealing acute on chronic kidney failure. Vital signs and diagnostic testing reviewed. Consultation with nephrology for recommendations and treatment plan possible dialysis through left fistula. 02/28/2021 Patient seen and examined at bedside. Patient resting comfortably with no acute signs of distress. Patient continues to endorse exertional shortness of breath and generalized weakness. Patient has hypertensive episodes Apresoline 25 mg 3 times a day added for additional blood pressure control. Currently awaiting on nephrology for recommendations and treatment plan for possible dialysis via left antecubital fistula. Patient known to have stage IV kidney disease, awaiting t ransplant list, current kidney function has declined over the last 3 months. Patient no acute signs of distress 03/01/2021 to 03/03/2020 see hospitalist coverage 03/04/2021 She is seen and examined at bedside. Patient resting comfortably with no acute signs of distress. Patient has tolerated dialysis with noticeable decrease and BUN and creatinine. The additional Apresoline 25 mg 3 times a day by mouth has controlled blood pressures. Patient endorses generalized weakness and exertional shortness of breath. Vital signs and diagnostic testing reviewed. Patient awaiting placement for dialysis and concerns coverage possible discharge in 24 hours. Diagnostic testing and vital signs reviewed Objective - Vital Signs Vital signs: Vital Signs Temp 97.6 F 03/04/21 16:16 Pulse 67 03/04/21 16:16 Resp 16 03/04/21 16:16 BP 147/73 03/04/21 16:16 Pulse Ox 99 03/04/21 16:16 Intake & Output 03/03/21 03/04/21 03/04/21 18:59 06:59 18:59 Intake Total 2048 Output Total 950 Balance 1098 Intake: Oral 1498 Hemodialysis 550 Output: Hemodialysis 950 Other: Voiding Method Toilet Toilet Toilet Diaper Diaper Diaper Incontinent Incontinent Incontinent # Voids 4 1 1 # Bowel Movements 1 - Constitutional General appearance: Present: cooperative - EENT Eyes: Present: EOMI, PERRLA ENT: Present: normal oropharynx Ears: bilateral: normal - Neck Neck: Present: normal ROM Carotids: bilateral: upstroke normal Thyroid: bilateral: normal size - Respiratory Respiratory: bilateral: diminished (Anterior and posterior lung pagan) - Cardiovascular Details: Normal sinus rhythm Heart rate: 65 Rhythm: regular Heart sounds: normal: S1, S2 - Peripheral edema ankle Peripheral Edema: bilateral: 1+ - Peripheral pulses radial pulse Peripheral Pulses: bilateral: Normal dorsalis pedis Peripheral Pulses: bilateral: Normal - Gastrointestinal General gastrointestinal: Present: normal bowel sounds, soft - Integumentary Integumentary: Present: decreased turgor - Neurologic Neurologic: Present: CNII-XII intact - Musculoskeletal Musculoskeletal: Present: generalized weakness - Psychiatric Psychiatric: Present: A&O x's 3, appropriate affect, intact judgment & insight - Allied health notes Allied health notes reviewed: nursing - Labs CBC & Chem 7: 03/04/21 06:12 03/03/21 10:03 Labs: Abnormal Lab Results - Last 24 Hours (Table) 03/03/21 03/03/21 03/04/21 Range/Units 17:48 20:29 06:12 RBC 2.67 L (4.10-5.20) X 10*6/uL Hgb 8.7 L (12.0-15.0) g/dL Hct 27.5 L (37.2-46.3) % MCV 103.0 H (80.0-97.0) fL MCH 32.6 H (27.0-32.0) pg MCHC 31.6 L (32.0-37.0) g/dL RDW 14.8 H (11.5-14.5) % MPV 12.8 H (9.5-12.2) fL Eosinophils # 0.44 H (0.04-0.35) X 10*3/uL POC Glucose (mg/dL) 105 H 199 H (75-99) mg/dL Phosphorus (2.4-5.1) mg/dL 03/04/21 03/04/21 03/04/21 Range/Units 06:12 07:30 12:16 RBC (4.10-5.20) X 10*6/uL Hgb (12.0-15.0) g/dL Hct (37.2-46.3) % MCV (80.0-97.0) fL MCH (27.0-32.0) pg MCHC (32.0-37.0) g/dL RDW (11.5-14.5) % MPV (9.5-12.2) fL Eosinophils # (0.04-0.35) X 10*3/uL POC Glucose (mg/dL) 113 H 130 H (75-99) mg/dL Phosphorus 5.4 H (2.4-5.1) mg/dL 03/04/21 Range/Units 17:42 RBC (4.10-5.20) X 10*6/uL Hgb (12.0-15.0) g/dL Hct (37.2-46.3) % MCV (80.0-97.0) fL MCH (27.0-32.0) pg MCHC (32.0-37.0) g/dL RDW (11.5-14.5) % MPV (9.5-12.2) fL Eosinophils # (0.04-0.35) X 10*3/uL POC Glucose (mg/dL) 286 H (75-99) mg/dL Phosphorus (2.4-5.1) mg/dL Assessment and Plan Assessment: Acute renal failure Chronic renal failure stage V Renal failure awaiting transplant Hypertension Dyslipidemia Diabetes mellitus type 2 Osteoarthritis Osteopenia History of hiatal hernia repair Left antecubital fistula placement dialysis; continue hemodialysis per nephrol aleah Full code Plan: Acute renal failure on chronic renal failure, avoid nephrotoxic drugs as possible; consultation with nephrology for recommendations; continue hemodialysi s Hypertension, continue home medications additional antihypertensive added Apresoline 25 mg by mouth 3 times a day Diabetes mellitus type 2 continue home medications and additional sliding scale Generalized weakness consultation with physical/occupational therapy Continue DVT/GI prophylaxis Continue home medications Continue to monitor vital signs and diagnostic testing Further recommendations come based on patient's clinical condition Hopeful discharge tomorrow awaiting for home hemodialysis approval Time with Patient: Greater than 30
[2021-03-04] MEDS: FUROSEMIDE 40 MG TAB PO SCH (18:03)
[2021-03-04 22:22] LABS: Glucose,Whole Blood 135 mg/dL (75-99)
[2021-03-04] MEDS: INSULIN DETEMIR (LEVEMIR) 100 UNIT/ML SYR SQ SCH (22:31)
[2021-03-05] MEDS: hydrALAZINE HCL 25 MG TAB PO SCH ×2 (03:45→11:58)
[2021-03-05 07:16] LABS: Glucose,Whole Blood 117 mg/dL (75-99)
[2021-03-05 08:24] VITALS: TEMP 97.9
[2021-03-05] MEDS: FERROUS SULFATE ORAL ELIXIR 300 MG/5 ML CUP PO SCH (08:41)
[2021-03-05] MEDS: HEPARIN SODIUM,PORCINE/PF 5,000 UNIT/0.5 ML SYRINGE SQ SCH (08:41)
[2021-03-05] MEDS: FAMOTIDINE 20 MG TAB PO SCH (08:42)
[2021-03-05] MEDS: SODIUM BICARBONATE TAB 650 MG TAB PO SCH (08:42)
[2021-03-05] MEDS: ATORVASTATIN 40 MG TAB PO SCH (08:42)
[2021-03-05] MEDS: INSULIN ASPART (NovoLOG) 100 UNIT/ML VIAL SQ SCH ×4 (08:43→13:08)
[2021-03-05] MEDS: carvediloL 6.25 MG TAB PO SCH (09:00)
[2021-03-05] MEDS ORDERED: allopurinoL 100 MG TAB PO SCH (09:00)
[2021-03-05] MEDS: SPIRONOLACTONE 25 MG TAB PO SCH (09:00)
[2021-03-05] MEDS: FUROSEMIDE 20 MG TAB PO SCH (09:00)
[2021-03-05 09:30] LABS: Basophils # (A) 0.04 X 10*3/uL (0.00-0.10); Basophils % (A) 0.6 %; HCT 27.3 % (37.2-46.3); HGB 8.6 g/dL (12.0-15.0); Lymphocytes # (A) 1.92 X 10*3/uL (0.90-5.00); Lymphocytes % (A) 30.9 %; MCH 31.7 pg (27.0-32.0); MCHC 31.5 g/dL (32.0-37.0); MCV 100.7 fL (80.0-97.0); Mean Platelet Volume 12.9 fL (9.5-12.2); Monocytes # (A) 0.99 X 10*3/uL (0.20-1.00); Monocytes % (A) 15.9 %; Neutrophils # (A) 2.73 X 10*3/uL (1.80-7.70); Platelet Count 172 X 10*3/uL (140-440); RBC 2.71 X 10*6/uL (4.10-5.20); RDW 14.3 % (11.5-14.5); WBC 6.22 X 10*3/uL (4.50-10.00)
--- NOTE | 2021-03-05 10:24 | P.PN ---
Subjective Patient is seen in follow-up for chronic kidney disease stage V now end-stage renal disease started on hemodialysis this admission. Currently sitting up in chair. No chest pain or shortness of breath. Hemodynamically stable. Scheduled for dialysis today. No changes overnight. Vital signs are stable. General: The patient appeared well nourished and normally developed. HEENT: Head exam is unremarkable. Neck is without jugular venous distension. LUNGS: Breath sounds decreased. HEART: Rate and Rhythm are regular. ABDOMEN: Soft, no distention. EXTREMITITES: No edema. Objective - Vital Signs Vital signs: Vital Signs Temp 97.9 F 03/05/21 08:23 Pulse 65 03/05/21 08:23 Resp 16 03/05/21 08:23 BP 135/69 03/05/21 08:23 Pulse Ox 97 03/05/21 08:23 Intake & Output 03/04/21 03/05/21 03/05/21 18:59 06:59 18:59 Intake Total 600 300 Balance 600 300 Intake: Oral 600 300 Other: Voiding Method Toilet Toilet Diaper Incontinent # Voids 1 2 # Bowel Movements 1 - Labs CBC & Chem 7: 03/05/21 06:17 03/03/21 10:03 Labs: Abnormal Lab Results - Last 24 Hours (Table) 03/04/21 03/04/21 03/04/21 Range/Units 12:16 17:42 22:20 RBC (4.10-5.20) X 10*6/uL Hgb (12.0-15.0) g/dL Hct (37.2-46.3) % MCV (80.0-97.0) fL MCHC (32.0-37.0) g/dL MPV (9.5-12.2) fL Eosinophils # (0.04-0.35) X 10*3/uL POC Glucose (mg/dL) 130 H 286 H 135 H (75-99) mg/dL 03/05/21 03/05/21 Range/Units 06:17 07:15 RBC 2.71 L (4.10-5.20) X 10*6/uL Hgb 8.6 L (12.0-15.0) g/dL Hct 27.3 L (37.2-46.3) % MCV 100.7 H (80.0-97.0) fL MCHC 31.5 L (32.0-37.0) g/dL MPV 12.9 H (9.5-12.2) fL Eosinophils # 0.50 H (0.04-0.35) X 10*3/uL POC Glucose (mg/dL) 117 H (75-99) mg/dL Assessment and Plan Plan: Assessment: 1. End-stage renal disease started on hemodialysis this admission. Etiology is nephrosclerosis and diabetic kidney disease. Noted to have bilateral atrophic kidneys. No hydronephrosis noted. 2. Diabetes mellitus. 3. Hyponatremia secondary to chronic kidney disease as well as hypertonicity from hyperglycemia. 4. Metabolic acidosis secondary to chronic kidney disease. Maintained on oral bicarb. 5. Anemia of chronic kidney disease. Iron deficiency noted. On oral iron. Unable to tolerate IV iron. No active bleeding. Plan: Hemodialysis today. manager finance following to set up outpatient hemodialysis. Possible discharge today. Add Gideon.
[2021-03-05] MEDS ORDERED: DARBEPOETIN ALFA 40 MCG/0.4 ML SYRINGE SQ SCH (10:30)
[2021-03-05 10:57] LABS: African American GFR (CKD) 13.3 (60.0-200.0); Albumin 3.9 g/dL (3.80-4.90); Albumin/Globulin Ratio 1.86 (1.60-3.17); BUN/Creat Ratio 21.35 Ratio (12.00-20.00); Calcium 9.6 mg/dL (8.7-10.3); Globulin 2.1 g/dL (1.6-3.3); Magnesium 3.5 mg/dL (1.5-2.4); Non-African American GFR(CKD) 11.5 (60.0-200.0); Potassium 4.1 mmol/L (3.5-5.5); Total Bilirubin 0.3 mg/dL (0.3-1.2)
[2021-03-05 12:57] LABS: Glucose,Whole Blood 159 mg/dL (75-99)
[2021-03-05 13:01] VITALS: BP 166/65; PULSE 72
--- NOTE | 2021-03-05 18:14 | P.DS ---
Providers Date of admission: 02/28/21 16:09 Expected date of discharge: 03/05/21 Attending physician: Isacc Valdez Consults: 02/27/21 13:21 Consult Physician Urgent Consulting Provider: Lorenza Borges Consult Reason/Comments: renal failure Do you want consulting provider notified?: Yes Primary care physician: Isacc Valdez Hospital Course: 75-year-old female was sent to the emergency department for increasing exertional shortness of breath, and generalized weakness with associated increasing creatinine and BUN. Patient has significant medical history of stage V kidney disease, diabetes mellitus type 2, history of CVA/TIA, hyperlipidemia, hypertension, osteoarthritis, and osteoporosis. Patient had extensive diagnostic workup in the emergency department revealing acute on chronic kidney failure. Vital signs and diagnostic testing reviewed. Consultation with nephrology for for recommendations and treatment plan regarding hemodialysis for stage V kidney disease. Patient tolerated hemodialysis well throughout hospital stay with reduction and BUN and creatinine and improvement with generalized weakness and exertional shortness of breath. Patient's hypertension was treated with Apresoline 25 mg by mouth 3 times a day for blood pressure control. Patient tolerated hospital stay well with no acute episodes during hospital stay. Assessment: Acute renal failure Chronic renal failure stage V Renal failure awaiting transplant Hypertension Dyslipidemia Diabetes mellitus type 2 Osteoarthritis Osteopenia History of hiatal hernia repair Left antecubital fistula placement dialysis; continue hemodialysis per nephrology: Dialysis:Wednesday's Full code Final diagnosis Chronic kidney disease, dependent on hemodialysis on Mondays, Wednesdays, and Fridays Hypertension, additional Apresoline 25 mg by mouth 3 times a day for blood pressure control Metabolic acidosis, continue sodium bicarb per nephrology Health Concerns: Multiple comorbidities Complexity of medical treatment plan Pertinent Studies: Chest x-ray, no acute cardiopulmonary abnormalities noted Abdominal/bladder ultrasound, no acute abnormalities noted Procedures: Hemodialysis performed during hospital stay Patient Condition at Discharge: Good Plan - Discharge Summary Discharge Rx Participant: No New Discharge Prescriptions: New Ferrous Sulfate Oral Elixir [Feosol Liquid] 300 mg PO BID-W/MEALS #300 ml hydrALAZINE HCL [Apresoline] 25 mg PO TID #90 tab Famotidine [Pepcid] 20 mg PO DAILY #30 tab Sodium Bicarbonate Tab 650 mg PO BID #60 tab Continue Spironolactone [Aldactone] 12.5 mg PO DAILY Cinacalcet [Sensipar] 30 mg PO MOWEFR allopurinoL [Zyloprim] 300 mg PO DAILY Furosemide [Lasix] 60 mg PO DAILY INSULIN LISPRO (humaLOG) [humaLOG] 16 units SQ AC-TID Carvedilol [Coreg] 6.25 mg PO BID Insulin Glargine,Hum.rec.anlog [Basaglar Kwikpen U-100] 30 unit SQ HS Rosuvastatin [Crestor] 20 mg PO DAILY Furosemide [Lasix] 40 mg PO AC-SUPPER Discharge Medication List Cinacalcet [Sensipar] 30 mg PO MOWEFR 12/01/16 [History] Spironolactone [Aldactone] 12.5 mg PO DAILY 12/01/16 [History] allopurinoL [Zyloprim] 300 mg PO DAILY 11/02/17 [History] Furosemide [Lasix] 60 mg PO DAILY 05/11/18 [History] INSULIN LISPRO (humaLOG) [humaLOG] 16 units SQ AC-TID 01/17/19 [History] Carvedilol [Coreg] 6.25 mg PO BID 06/19/20 [History] Insulin Glargine,Hum.rec.anlog [Basaglar Kwikpen U-100] 30 unit SQ HS 06/19/20 [History] Rosuvastatin [Crestor] 20 mg PO DAILY 01/28/21 [History] Furosemide [Lasix] 40 mg PO AC-SUPPER 02/27/21 [History] Famotidine [Pepcid] 20 mg PO DAILY #30 tab 03/04/21 [Rx] Ferrous Sulfate Oral Elixir [Feosol Liquid] 300 mg PO BID-W/MEALS #300 ml 03/04/21 [Rx] Sodium Bicarbonate Tab 650 mg PO BID #60 tab 03/04/21 [Rx] hydrALAZINE HCL [Apresoline] 25 mg PO TID #90 tab 03/04/21 [Rx] Follow up Appointment(s)/Referral(s): Isacc Valdez MD [Primary Care Provider] - 1-2 days Ambulatory/Diagnostic Orders: Complete Blood Count w/diff [LAB.AMB] Time Frame: 2 Days, Location: None Selected Comprehensive Metabolic Panel [LAB.AMB] Time Frame: 2 Days, Location: None Selected Patient Instructions/Handouts: Dialysis Diet (DC), End Stage Kidney Disease (DC), Hemodialysis (DC), Hypertension and Diabetes (DC) Discharge Disposition: HOME WITH HOME HEALTH SERVICES Care Plan Goals (MU): Dialysis appointment : Sunday March 07, 2021 at 4:15pm [facility] [place] [id number] [facility] [phone]
== END 2021-03-05 14:21 | disposition home health service (06) | DRG 683 ==
LOC: EC 11:12 → 6NMEDSUR 14:12 → OBSVTOIN 02-28 16:09
PROVIDERS: ADMIT Family Medicine; ATTEND Family Medicine
PROC: 5A1D70Z Performance of Urinary Filtration, Intermittent, Less than 6 Hours Per Day (ICD-10-PCS; principal; 2021-02-28)
DX: N17.9 Acute kidney failure, unspecified (principal); I12.0 Hypertensive chronic kidney disease with stage 5 chronic kidney disease or end stage renal disease; E87.2 Acidosis; E87.1 Hypo-osmolality and hyponatremia; Z76.82 Awaiting organ transplant status; D63.1 Anemia in chronic kidney disease; E83.9 Disorder of mineral metabolism, unspecified; N18.6 End stage renal disease; E11.22 Type 2 diabetes mellitus with diabetic chronic kidney disease; E11.65 Type 2 diabetes mellitus with hyperglycemia; E21.3 Hyperparathyroidism, unspecified; Z79.4 Long term (current) use of insulin; Z99.2 Dependence on renal dialysis; E87.70 Fluid overload, unspecified; N81.6 Rectocele; E78.5 Hyperlipidemia, unspecified; E61.1 Iron deficiency; R32 Unspecified urinary incontinence; M81.0 Age-related osteoporosis without current pathological fracture; M19.90 Unspecified osteoarthritis, unspecified site; H91.90 Unspecified hearing loss, unspecified ear; Z79.899 Other long term (current) drug therapy; Z86.73 Personal history of transient ischemic attack (TIA), and cerebral infarction without residual deficits; Z87.01 Personal history of pneumonia (recurrent); Z90.89 Acquired absence of other organs; Z90.49 Acquired absence of other specified parts of digestive tract; Z87.19 Personal history of other diseases of the digestive system; Z87.2 Personal history of diseases of the skin and subcutaneous tissue; Z87.39 Personal history of other diseases of the musculoskeletal system and connective tissue; Z98.890 Other specified postprocedural states; Z88.1 Allergy status to other antibiotic agents; Z88.5 Allergy status to narcotic agent; Z88.0 Allergy status to penicillin; Z91.048 Other nonmedicinal substance allergy status; Z80.3 Family history of malignant neoplasm of breast; Z83.3 Family history of diabetes mellitus
CPT/HCPCS: 36415; 71046; 76770; 80048; 80053; 81001; 82009; 82728; 83540; 83550; 83605; 83735; 83880; 84100; 85025; 85610; 85730; 86704; 86706; 87340; 90935; 99284

== ENCOUNTER → 2021-04-14 | Outpatient (CLI) | payer MEDICARE ==
--- NOTE | 2021-04-14 10:37 | US ---
EXAMINATION TYPE: US duplex aorta DATE OF EXAM: 04/14/2021 COMPARISON: None CLINICAL HISTORY: 75-year-old female Z13.6 AAA Screening. FINDINGS: EXAM MEASUREMENTS: Abdominal Aorta: Proximal: 2.4 x 2.1 cm Mid: 2.3 x 1.7 cm Distal: 1.9 x 1.8 cm Bifurcation: 1.1 x 0.9 cm 0.9 x 0.7 cm No evidence of AAA. However, the proximalmost portion is obscured by bowel gas. IMPRESSION: 1. Note that the proximal most portion of the abdominal aorta is obscured by bowel gas shadowing. 2. Otherwise, no sonographic evidence for AAA.
== END | disposition home or self-care (01) ==
LOC: RADUSWWP 06:59
PROVIDERS: ATTEND Family Medicine
DX: Z13.6 Encounter for screening for cardiovascular disorders (principal)
CPT/HCPCS: 93979

== ENCOUNTER 2021-05-07 10:38 | Emergency (ER) | payer MEDICARE ==
[2021-05-07 11:08] VITALS: TEMP 98
[2021-05-07 13:08] LABS: Anisocytosis Slight; Basophils # (A) 0.1 k/uL (0-0.2); Basophils % (A) 1 %; Eosinophils # (A) 0.5 k/uL (0-0.7); Eosinophils % (A) 8 %; HCT 33.8 % (34.0-46.0); HGB 10.9 gm/dL (11.4-16.0); Lymphocytes # (A) 1.7 k/uL (1.0-4.8); Lymphocytes % (A) 26 %; MCH 32.6 pg (25.0-35.0); MCHC 32.3 g/dL (31.0-37.0); MCV 100.9 fL (80.0-100.0); Macrocytosis Slight; Mean Platelet Volume 8.9; Monocytes # (A) 0.5 k/uL (0-1.0); Monocytes % (A) 8 %; Neutrophils # (A) 3.5 k/uL (1.3-7.7); Neutrophils % (A) 54 %; Platelet Count 186 k/uL (150-450); RBC 3.35 m/uL (3.80-5.40); RDW 16.4 % (11.5-15.5); WBC 6.5 k/uL (3.8-10.6)
--- NOTE | 2021-05-07 13:09 | ED ---
General Adult HPI - General Chief complaint: Headache Stated complaint: Headache Time Seen by Provider: 05/07/21 12:14 Source: patient, RN notes reviewed Mode of arrival: ambulatory Limitations: no limitations - History of Present Illness Initial comments: 75-year-old female with a past medical history of hyperlipidemia, hypertension, diabetes mellitus, CVA, chronic kidney disease on renal dialysis presents to the emergency room for a chief of movement of diarrhea. Patient states she has had diarrhea for about a week and a half. Patient states this has caused her to miss a few different dialysis appointments over the past 2 weeks. She states th at the last time she had dialysis was Wednesday and she was supposed to have it again today went to Dr. Valdez's office instead. She also is having a headache that started yesterday. The headache right now is Tylenol. Patient states she does get headaches from time to time. Patient was sent in by primary care provider. She denies shortness of breath. Denies any increased swelling. Patient has no other complaints at this time including chest pain, abdominal pain, nausea or vomiting, headache, or visual changes. - Related Data Home Medications Medication Instructions Recorded Confirmed Cinacalcet [Sensipar] 30 mg PO MOWEFR 12/01/16 05/07/21 Spironolactone [Aldactone] 12.5 mg PO DAILY 12/01/16 05/07/21 allopurinoL [Zyloprim] 300 mg PO DAILY 11/02/17 05/07/21 Furosemide [Lasix] 60 mg PO DAILY 05/11/18 05/07/21 INSULIN LISPRO (humaLOG) [humaLOG] 16 units SQ AC-TID 01/17/19 05/07/21 Carvedilol [Coreg] 6.25 mg PO BID 06/19/20 05/07/21 Insulin Glargine,Hum.rec.anlog 30 unit SQ HS 06/19/20 05/07/21 [Basaglar Kwikpen U-100] Rosuvastatin [Crestor] 20 mg PO DAILY 01/28/21 05/07/21 Furosemide [Lasix] 40 mg PO AC-SUPPER 02/27/21 05/07/21 Ferrous Sulfate Drops [Robert-in-Lalita] 60 mg PO BID-W/MEALS 05/07/21 05/07/21 Previous Rx's Medication Instructions Recorded Famotidine [Pepcid] 20 mg PO DAILY #30 tab 03/04/21 Allergies Allergy/AdvReac Type Severity Reaction Status Date / Time adhesive Allergy Rash/Hives Verified 05/07/21 13:53 codeine Allergy Rash/Hives Verified 05/07/21 13:53 erythromycin base Allergy Rash/Hives Verified 05/07/21 13:53 [Erythromycin Base] Penicillins Allergy Swelling Verified 05/07/21 13:53 Review of Systems ROS Statement: Those systems with pertinent positive or pertinent negative responses have been documented in the HPI. ROS Other: All systems not noted in ROS Statement are negative. 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 Osteopenia. Type II diabetes. Chronic kidney disease(looking into renal transplant). 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 Known grade 2 rectocele. hemodialysis History of Any Multi-Drug Resistant Organisms: None Reported Past Surgical History: Adenoidectomy, Appendectomy, Tonsillectomy Additional Past Surgical History / Comment(s): fatty tumor removed; hiatal hernia repair. Had a colonoscopy 2013. Left antecubital fistula placement for possible dialysis. Fistula Revision - left arm. Bilateral knees - gel insertion Past Anesthesia/Blood Transfusion Reactions: No Reported Reaction Past Psychological History: No Psychological Hx Reported Smoking Status: Never smoker Past Alcohol Use History: None Reported Past Drug Use History: None Reported - Past Family History Mother Family Medical History: Cancer Additional Family Medical History / Comment(s): Breast cancer. Grandmother had diabetes. General Exam Limitations: no limitations General appearance: alert, in no apparent distress Head exam: Present: atraumatic Eye exam: Present: normal appearance, PERRL, EOMI. Absent: scleral icterus, conjunctival injection ENT exam: Present: normal exam, mucous membranes moist Neck exam: Present: normal inspection, full ROM. Absent: tenderness Respiratory exam: Present: normal lung sounds bilaterally. Absent: respiratory distress, wheezes Cardiovascular Exam: Present: regular rate, normal rhythm, normal heart sounds GI/Abdominal exam: Present: soft, normal bowel sounds. Absent: distended, tenderness Neurological exam: Present: alert Course Vital Signs 05/07/21 05/07/21 11:00 13:14 Temperature 98 F Pulse Rate 69 65 Respiratory 18 20 Rate Blood Pressure 161/67 151/71 O2 Sat by Pulse 97 100 Oximetry EKG Findings - EKG Comments: EKG Findings:: Normal sinus rhythm, ventricular rate 62, WI interval 174, QTC 452 Medical Decision Making - Medical Decision Making vitals are stable. CBC is unremarkable. CMP does reveal chronic kidney disease. No significant abnormalities. Coronavirus is negative. Patient is ambulatory without difficulty. Patient can be discharged home to follow up with primary care. Will return here for any worsening symptoms. - Lab Data Result diagrams: 05/07/21 12:56 05/07/21 12:56 Lab Results 05/07/21 05/07/21 05/07/21 Range/Units 11:10 12:56 12:56 WBC 6.5 (3.8-10.6) k/uL RBC 3.35 L (3.80-5.40) m/uL Hgb 10.9 L (11.4-16.0) gm/dL Hct 33.8 L (34.0-46.0) % MCV 100.9 H (80.0-100.0) fL MCH 32.6 (25.0-35.0) pg MCHC 32.3 (31.0-37.0) g/dL RDW 16.4 H (11.5-15.5) % Plt Count 186 (150-450) k/uL MPV 8.9 Neutrophils % 54 % Lymphocytes % 26 % Monocytes % 8 % Eosinophils % 8 % Basophils % 1 % Neutrophils # 3.5 (1.3-7.7) k/uL Lymphocytes # 1.7 (1.0-4.8) k/uL Monocytes # 0.5 (0-1.0) k/uL Eosinophils # 0.5 (0-0.7) k/uL Basophils # 0.1 (0-0.2) k/uL Anisocytosis Slight Macrocytosis Slight Sodium 137 (137-145) mmol/L Potassium 4.2 (3.5-5.1) mmol/L Chloride 102 (98-107) mmol/L Carbon Dioxide 22 (22-30) mmol/L Anion Gap 13 mmol/L BUN 72 H (7-17) mg/dL Creatinine 4.71 H (0.52-1.04) mg/dL Est GFR (CKD-EPI)AfAm 10 (>60 ml/min/1.73 sqM) Est GFR (CKD-EPI)NonAf 9 (>60 ml/min/1.73 sqM) Glucose 176 H (74-99) mg/dL Calcium 10.3 H (8.4-10.2) mg/dL Magnesium 2.5 H (1.6-2.3) mg/dL Total Bilirubin 0.4 (0.2-1.3) mg/dL AST 22 (14-36) U/L ALT 12 (4-34) U/L Alkaline Phosphatase 61 (38-126) U/L Total Protein 6.9 (6.3-8.2) g/dL Albumin 4.2 (3.5-5.0) g/dL Coronavirus (PCR) Not Detected (Not Detectd) Disposition Clinical Impression: Diarrhea Disposition: HOME SELF-CARE Condition: Good Instructions (If sedation given, give patient instructions): Acute Diarrhea (ED) Additional Instructions: Please attend your appointment for dialysis and do not miss any further appointments. Please follow-up with your doctor. Return to the emergency room for any worsening symptoms. Is patient prescribed a controlled substance at d/c from ED?: No Referrals: Isacc Valdez MD [Primary Care Provider] - 1-2 days Time of Disposition: 14:52
[2021-05-07 13:15] VITALS: BP 151/71; PULSE 65; RESP 20
[2021-05-07 13:33] LABS: Albumin 4.2 g/dL (3.5-5.0); Calcium 10.3 mg/dL (8.4-10.2); Magnesium 2.5 mg/dL (1.6-2.3); Potassium 4.2 mmol/L (3.5-5.1); Total Bilirubin 0.4 mg/dL (0.2-1.3); Total Protein 6.9 g/dL (6.3-8.2)
== END 2021-05-07 15:03 | disposition home or self-care (01) ==
LOC: EC 10:38
DX: R19.7 Diarrhea, unspecified (principal); E11.22 Type 2 diabetes mellitus with diabetic chronic kidney disease; I12.9 Hypertensive chronic kidney disease with stage 1 through stage 4 chronic kidney disease, or unspecified chronic kidney disease; N18.9 Chronic kidney disease, unspecified; E78.5 Hyperlipidemia, unspecified; M19.90 Unspecified osteoarthritis, unspecified site; Z20.822 Contact with and (suspected) exposure to COVID-19; Z79.4 Long term (current) use of insulin; Z88.0 Allergy status to penicillin; Z88.1 Allergy status to other antibiotic agents; Z88.5 Allergy status to narcotic agent; Z86.73 Personal history of transient ischemic attack (TIA), and cerebral infarction without residual deficits; Z90.49 Acquired absence of other specified parts of digestive tract
CPT/HCPCS: 36415; 80053; 83735; 85025; 87635; 93005; 99284

== ENCOUNTER 2021-07-18 07:35 | Observation (INO) | payer MEDICARE ==
[2021-07-18] MEDS ORDERED: HYDROmorphone 0.5 MG/0.5 ML SYRINGE IM STA (07:52)
--- NOTE | 2021-07-18 07:58 | ED ---
General Adult HPI - General Chief complaint: Fall Stated complaint: Fall, Weakness Time Seen by Provider: 07/18/21 07:43 Source: patient, EMS Mode of arrival: EMS - History of Present Illness Initial comments: 76-year-old female presents to the emergency room for a chief complaint of fall. Patient was getting out of bed to go to dialysis. Patient states she was rolling out but missed a step and fell to the ground on her knees. States she has chronic knee pain but this worsened her pain. Patient did not hit her head or neck. Patient does not take blood thinners. Patient has no other complaints at this time including shortness of breath, chest pain, abdominal pain, nausea or vomiting, headache, or visual changes. - Related Data Home Medications Medication Instructions Recorded Confirmed Cinacalcet [Sensipar] 30 mg PO MOWEFR 12/01/16 07/18/21 Spironolactone [Aldactone] 12.5 mg PO DAILY 12/01/16 07/18/21 allopurinoL [Zyloprim] 300 mg PO DAILY 11/02/17 07/18/21 Furosemide [Lasix] 60 mg PO DAILY 05/11/18 07/18/21 INSULIN LISPRO (humaLOG) [humaLOG] 16 units SQ AC-TID 01/17/19 07/18/21 Carvedilol [Coreg] 6.25 mg PO BID 06/19/20 07/18/21 Insulin Glargine,Hum.rec.anlog 30 unit SQ HS 06/19/20 07/18/21 [Basaglar Kwikpen U-100] Rosuvastatin [Crestor] 20 mg PO DAILY 01/28/21 07/18/21 Furosemide [Lasix] 40 mg PO AC-SUPPER 02/27/21 07/18/21 Ferrous Sulfate [Feosol] 325 mg PO DAILY 07/18/21 07/18/21 Magnebind 300mg 1 tab PO AC-LUNCH 07/18/21 07/18/21 Midodrine [ProAmatine] 5 mg PO TID PRN 07/18/21 07/18/21 Allergies Allergy/AdvReac Type Severity Reaction Status Date / Time adhesive Allergy Rash/Hives Verified 07/18/21 10:16 codeine Allergy Rash/Hives Verified 07/18/21 10:16 erythromycin base Allergy Rash/Hives Verified 07/18/21 10:16 [Erythromycin Base] Penicillins Allergy Swelling Verified 07/18/21 10:16 Review of Systems ROS Statement: Those systems with pertinent positive or pertinent negative responses have been documented in the HPI. ROS Other: All systems not noted in ROS Statement are negative. 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 Osteopenia. Type II diabetes. Chronic kidney disease(looking into renal transplant). Hyper parathyroidism. 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 Known grade 2 rectocele. hemodialysis History of Any Multi-Drug Resistant Organisms: None Reported Past Surgical History: Adenoidectomy, Appendectomy, Tonsillectomy Additional Past Surgical History / Comment(s): fatty tumor removed; hiatal hernia repair. Had a colonoscopy 2013. Left antecubital fistula placement for possible dialysis. Fistula Revision - left arm. Bilateral knees - gel insertion Past Anesthesia/Blood Transfusion Reactions: No Reported Reaction Past Psychological History: No Psychological Hx Reported Smoking Status: Never smoker Past Alcohol Use History: None Reported Past Drug Use History: None Reported - Past Family History Mother Family Medical History: Cancer Additional Family Medical History / Comment(s): Breast cancer. Grandmother had diabetes. General Exam - General Exam Comments Initial Comments: Full range of motion of the bilateral knees. No contusions or ecchymosis. Capillary refill less than 2 seconds in bilateral lower extremity. General appearance: alert, in no apparent distress Head exam: Present: atraumatic Eye exam: Present: normal appearance, PERRL, EOMI. Absent: scleral icterus, conjunctival injection ENT exam: Present: normal exam, mucous membranes moist Neck exam: Present: normal inspection, full ROM. Absent: tenderness Respiratory exam: Present: normal lung sounds bilaterally. Absent: respiratory distress, wheezes Cardiovascular Exam: Present: regular rate, normal rhythm, normal heart sounds GI/Abdominal exam: Present: soft, normal bowel sounds. Absent: distended, tenderness Course Vital Signs 07/18/21 07/18/21 07:38 10:36 Temperature 97.0 F L Pulse Rate 69 67 Respiratory 18 18 Rate Blood Pressure 161/71 151/73 O2 Sat by Pulse 100 100 Oximetry EKG Findings - EKG Comments: EKG Findings:: Normal sinus rhythm, ventricular rate 67, ME interval 158, QTC of 458 Medical Decision Making - Medical Decision Making Vitals are stable. Patient is well appearing. Patient presents for a mechanical fall. Complains of bilateral knee pain which is also chronic issue for patient. No external physical exam findings consistent with trauma. X-ray of the bilateral knees shows marked osteoarthritis with joint effusions however no acute fracture or dislocation. When attempting to him today patient she cannot ambulate. States that she has been weak. Son states that she lives in an independent living facility but he has been concerned she may need placement in a long-term care facility for rehab. At that point weakness workup was initiated. Patient is found to have a slight urinary tract infection but otherwise no acute abnormalities. Case discussed with Dr. Funes who is on-call for Dr. Valdez's group. Will admit patient. - Lab Data Result diagrams: 07/18/21 09:25 07/18/21 09:25 Lab Results 07/18/21 07/18/21 07/18/21 Range/Units 09:25 09:25 09:25 WBC 7.3 (3.8-10.6) k/uL RBC 3.95 (3.80-5.40) m/uL Hgb 12.4 (11.4-16.0) gm/dL Hct 40.2 (34.0-46.0) % MCV 101.8 H (80.0-100.0) fL MCH 31.3 (25.0-35.0) pg MCHC 30.8 L (31.0-37.0) g/dL RDW 15.3 (11.5-15.5) % Plt Count 146 L (150-450) k/uL MPV 10.0 Neutrophils % 69 % Lymphocytes % 17 % Monocytes % 6 % Eosinophils % 5 % Basophils % 1 % Neutrophils # 5.0 (1.3-7.7) k/uL Lymphocytes # 1.3 (1.0-4.8) k/uL Monocytes # 0.5 (0-1.0) k/uL Eosinophils # 0.3 (0-0.7) k/uL Basophils # 0.0 (0-0.2) k/uL Hypochromasia Slight Macrocytosis Slight PT 10.0 (9.0-12.0) sec INR 0.9 (<1.2) APTT 20.9 L (22.0-30.0) sec Sodium (137-145) mmol/L Potassium (3.5-5.1) mmol/L Chloride (98-107) mmol/L Carbon Dioxide (22-30) mmol/L Anion Gap mmol/L BUN (7-17) mg/dL Creatinine (0.52-1.04) mg/dL Est GFR (CKD-EPI)AfAm (>60 ml/min/1.73 sqM) Est GFR (CKD-EPI)NonAf (>60 ml/min/1.73 sqM) Glucose (74-99) mg/dL Plasma Lactic Acid Michael (0.7-2.0) mmol/L Calcium (8.4-10.2) mg/dL Magnesium (1.6-2.3) mg/dL Total Bilirubin (0.2-1.3) mg/dL AST (14-36) U/L ALT (4-34) U/L Alkaline Phosphatase (38-126) U/L Total Protein (6.3-8.2) g/dL Albumin (3.5-5.0) g/dL Urine Color Light Yellow Urine Appearance Clear (Clear) Urine pH 6.5 (5.0-8.0) Ur Specific [place] 1.008 (1.001-1.035) Urine Protein 1+ H (Negative) Urine Glucose (UA) Negative (Negative) Urine Ketones Negative (Negative) Urine Blood Small H (Negative) Urine Nitrite Negative (Negative) Urine Bilirubin Negative (Negative) Urine Urobilinogen <2.0 (<2.0) mg/dL Ur Leukocyte Esterase Moderate H (Negative) Urine RBC <1 (0-5) /hpf Urine WBC 8 H (0-5) /hpf Ur Squamous Epith Cells 1 (0-4) /hpf Urine Bacteria Few H (None) /hpf Coronavirus (PCR) (Not Detectd) 07/18/21 07/18/21 07/18/21 Range/Units 09:25 09:25 09:25 WBC (3.8-10.6) k/uL RBC (3.80-5.40) m/uL Hgb (11.4-16.0) gm/dL Hct (34.0-46.0) % MCV (80.0-100.0) fL MCH (25.0-35.0) pg MCHC (31.0-37.0) g/dL RDW (11.5-15.5) % Plt Count (150-450) k/uL MPV Neutrophils % % Lymphocytes % % Monocytes % % Eosinophils % % Basophils % % Neutrophils # (1.3-7.7) k/uL Lymphocytes # (1.0-4.8) k/uL Monocytes # (0-1.0) k/uL Eosinophils # (0-0.7) k/uL Basophils # (0-0.2) k/uL Hypochromasia Macrocytosis PT (9.0-12.0) sec INR (<1.2) APTT (22.0-30.0) sec Sodium 140 (137-145) mmol/L Potassium 3.9 (3.5-5.1) mmol/L Chloride 104 (98-107) mmol/L Carbon Dioxide 25 (22-30) mmol/L Anion Gap 11 mmol/L BUN 51 H (7-17) mg/dL Creatinine 3.53 H (0.52-1.04) mg/dL Est GFR (CKD-EPI)AfAm 14 (>60 ml/min/1.73 sqM) Est GFR (CKD-EPI)NonAf 12 (>60 ml/min/1.73 sqM) Glucose 153 H (74-99) mg/dL Plasma Lactic Acid Michael 1.3 (0.7-2.0) mmol/L Calcium 10.4 H (8.4-10.2) mg/dL Magnesium 2.4 H (1.6-2.3) mg/dL Total Bilirubin 0.5 (0.2-1.3) mg/dL AST 28 (14-36) U/L ALT 15 (4-34) U/L Alkaline Phosphatase 70 (38-126) U/L Total Protein 6.7 (6.3-8.2) g/dL Albumin 4.0 (3.5-5.0) g/dL Urine Color Urine Appearance (Clear) Urine pH (5.0-8.0) Ur Specific [place] (1.001-1.035) Urine Protein (Negative) Urine Glucose (UA) (Negative) Urine Ketones (Negative) Urine Blood (Negative) Urine Nitrite (Negative) Urine Bilirubin (Negative) Urine Urobilinogen (<2.0) mg/dL Ur Leukocyte Esterase (Negative) Urine RBC (0-5) /hpf Urine WBC (0-5) /hpf Ur Squamous Epith Cells (0-4) /hpf Urine Bacteria (None) /hpf Coronavirus (PCR) Not Detected (Not Detectd) Disposition Clinical Impression: Knee pain, bilateral, Weakness, UTI (urinary tract infection), Unable to ambulate Disposition: ADMITTED IP TO THIS [facility] Instructions (If sedation given, give patient instructions): Fall Prevention for Older Adults (ED), Knee Pain (ED) Additional Instructions: Please follow-up with your doctor or orthopedics in one to 2 days. Return to the emergency room for any worsening symptoms. Is patient prescribed a controlled substance at d/c from ED?: No Referrals: Isacc Valdez MD [Primary Care Provider] - 1-2 days Jesus Earl DO [Doctor of Osteopathic Medicine] - 1-2 days Time of Disposition: 09:00
--- NOTE | 2021-07-18 08:28 | XR ---
Bilateral knees HISTORY: Trauma and pain 3 views of each knee submitted, no comparisons There is marginal spurring tricompartmentally, joint space loss is present especially in the lateral compartments bilaterally, medial compartment of the left knee, suprapatellar increased attenuation gonzalez ggests joint effusion greater on the left than on the right. Remodeling is present in the medial and lateral femoral condyles greater on the left. Bone mineralization is reduced. There is soft tissue sw elling present. Small ossific density medial to the left patella is well-corticated and not felt like ly to be acute. Atherosclerotic vascular calcifications are noted bilaterally. Punctate ossific densi ty inferior to the patella on the left is noted on the lateral exam which is not felt likely to be ac pravin. IMPRESSION: Marked osteoarthritis. Joint effusions. No acute acute fracture or dislocation is suspect ed as described.
[2021-07-18 09:34] LABS: Basophils % (A) 1 %; Eosinophils # (A) 0.3 k/uL (0-0.7); Eosinophils % (A) 5 %; HCT 40.2 % (34.0-46.0); HGB 12.4 gm/dL (11.4-16.0); Hypochromasia Slight; Lymphocytes # (A) 1.3 k/uL (1.0-4.8); Lymphocytes % (A) 17 %; MCH 31.3 pg (25.0-35.0); MCHC 30.8 g/dL (31.0-37.0); MCV 101.8 fL (80.0-100.0); Macrocytosis Slight; Monocytes # (A) 0.5 k/uL (0-1.0); Monocytes % (A) 6 %; Neutrophils % (A) 69 %; Platelet Count 146 k/uL (150-450); RBC 3.95 m/uL (3.80-5.40); RDW 15.3 % (11.5-15.5); WBC 7.3 k/uL (3.8-10.6)
[2021-07-18 09:43] LABS: Calcium 10.4 mg/dL (8.4-10.2); Magnesium 2.4 mg/dL (1.6-2.3); Potassium 3.9 mmol/L (3.5-5.1); Total Bilirubin 0.5 mg/dL (0.2-1.3); Total Protein 6.7 g/dL (6.3-8.2)
[2021-07-18 09:56] LABS: INR 0.9 (<1.2)
[2021-07-18 10:09] LABS: Partial Thromboplastin Time 20.9 sec (22.0-30.0)
--- NOTE | 2021-07-18 10:13 | XR ---
EXAMINATION TYPE: XR chest 2V DATE OF EXAM: 07/18/2021 COMPARISON: Chest x-ray 02/27/2021 HISTORY: Weakness TECHNIQUE: Frontal and lateral views of the chest are obtained. FINDINGS: Right jugular central venous catheter is present, distal tips overlying the cavoatrial elisabet ction. No evident pneumothorax or pleural effusion. Cardiac mediastinal silhouette is stable. Aorta i s dense. There are overlying artifacts. There may be spinal curvature. IMPRESSION: No acute cardiopulmonary process.
[2021-07-18 10:42] LABS: Appearance,Urine Clear (Clear); Bacteria,Urine Few /hpf; Bilirubin,Urine Negative (Negative); Blood,Urine Small (Negative); Color,Urine Light Yellow; Glucose,Urine (UA) Negative (Negative); Ketones,Urine Negative (Negative); Leukocyte Esterase,Urine Moderate (Negative); Nitrite,Urine Negative (Negative); PH, Urine 6.5 (5.0-8.0); Protein,Urine 1+ (Negative); RBC,Urine <1 /hpf (0-5); Specific Gravity,Urine 1.008 (1.001-1.035); Squamous Epithelial Cell,Urine 1 /hpf (0-4); Urobilinogen,Urine <2.0 mg/dL (<2.0); WBC,Urine 8 /hpf (0-5)
[2021-07-18] MEDS ORDERED: NALOXONE 0.4 MG/ML 1 ML VIAL IV PRN (11:43)
[2021-07-18] MEDS ORDERED: ONDANSETRON 4 MG/2 ML VIAL IVP PRN (11:43)
[2021-07-18] MEDS ORDERED: MIDODRINE 5 MG TAB PO PRN (13:01)
[2021-07-18 16:17] LABS: Glucose,Whole Blood 98 mg/dL (75-99)
[2021-07-18] MEDS: CINACALCET 30 MG TAB PO SCH ×2 (17:48→17:50)
[2021-07-18] MEDS: FUROSEMIDE 40 MG TAB PO SCH ×2 (17:48→17:50)
[2021-07-18] MEDS: INSULIN ASPART (NovoLOG) 100 UNIT/ML VIAL SQ SCH (17:53)
[2021-07-18 22:07] LABS: Glucose,Whole Blood 219 mg/dL (75-99)
[2021-07-18] MEDS: carvediloL 6.25 MG TAB PO SCH (22:07)
[2021-07-18] MEDS: INSULIN DETEMIR (LEVEMIR) 100 UNIT/ML SYR SQ SCH (22:07)
[2021-07-18] MEDS: HYDROmorphone 0.5 MG/0.5 ML SYRINGE IVP PRN (23:16)
[2021-07-19 07:59] LABS: Glucose,Whole Blood 92 mg/dL (75-99)
[2021-07-19] MEDS: INSULIN ASPART (NovoLOG) 100 UNIT/ML VIAL SQ SCH ×3 (08:43→18:20)
[2021-07-19] MEDS: allopurinoL 300 MG TAB PO SCH (08:49)
[2021-07-19] MEDS: SPIRONOLACTONE 25 MG TAB PO SCH (08:49)
[2021-07-19] MEDS: FERROUS SULFATE 325 MG TAB PO SCH (08:49)
[2021-07-19] MEDS: carvediloL 6.25 MG TAB PO SCH ×2 (08:49→21:29)
[2021-07-19] MEDS: ATORVASTATIN 40 MG TAB PO SCH (08:49)
[2021-07-19] MEDS: CALCIUM CARB-MAG CARB-FOLIC 1 EACH TAB PO SCH (08:49)
[2021-07-19] MEDS: HYDROmorphone 0.5 MG/0.5 ML SYRINGE IVP PRN ×2 (08:55→21:29)
--- NOTE | 2021-07-19 08:55 | P.NPCON ---
History of Present Illness - Reason for Consult end stage renal disease - History of Present Illness Reason for consultation: End-stage renal disease History of present illness: Patient is a 76-year-old female seen in renal consultation for end-stage renal disease. She is maintained on hemodialysis on Wednesday schedule. She has a right chest permacath. Patient states she fell while trying to get off her bed yesterday. Patient states her legs felt weak and she fell. She denies syncopal episode. She denies hitting her head. Knee x-ray showed osteoarthritis. No fracture noted. No vomiting or diarrhea. No fever or chills. No cough. Blood pressure stable. No chest pain or shortness of breath. She is currently on room air. She had dialysis in the hospital yesterday with 2 L ultrafiltration. No active complaints at this time. Vital signs are stable. General: The patient appeared well nourished and normally developed. HEENT: Head exam is unremarkable. LUNGS: Breath sounds decreased. HEART: Rate and Rhythm are regular. ABDOMEN: Soft, no distention. EXTREMITITES: Trace edema. 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 Osteopenia. Type II diabetes. Chronic kidney disease(looking into renal transplant). 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 Known grade 2 rectocele. hemodialysis History of Any Multi-Drug Resistant Organisms: None Reported Past Surgical History: Adenoidectomy, Appendectomy, Tonsillectomy Additional Past Surgical History / Comment(s): fatty tumor removed; hiatal hernia repair. Had a colonoscopy 2013. Left antecubital fistula placement for possible dialysis. Fistula Revision - left arm. Bilateral knees - gel insertion Past Anesthesia/Blood Transfusion Reactions: No Reported Reaction Past Psychological History: No Psychological Hx Reported Smoking Status: Never smoker Past Alcohol Use History: None Reported Past Drug Use History: None Reported - Past Family History Mother Family Medical History: Cancer Additional Family Medical History / Comment(s): Breast cancer. Grandmother had diabetes. Medications and Allergies Home Medications Medication Instructions Recorded Confirmed Type Cinacalcet [Sensipar] 30 mg PO MOWEFR 12/01/16 07/18/21 History Spironolactone [Aldactone] 12.5 mg PO DAILY 12/01/16 07/18/21 History allopurinoL [Zyloprim] 300 mg PO DAILY 11/02/17 07/18/21 History Furosemide [Lasix] 60 mg PO DAILY 05/11/18 07/18/21 History INSULIN LISPRO (humaLOG) [humaLOG] 16 units SQ AC-TID 01/17/19 07/18/21 History Carvedilol [Coreg] 6.25 mg PO BID 06/19/20 07/18/21 History Insulin Glargine,Hum.rec.anlog 30 unit SQ HS 06/19/20 07/18/21 History [Basaglar Kwikpen U-100] Rosuvastatin [Crestor] 20 mg PO DAILY 01/28/21 07/18/21 History Furosemide [Lasix] 40 mg PO AC-SUPPER 02/27/21 07/18/21 History Ferrous Sulfate [Feosol] 325 mg PO DAILY 07/18/21 07/18/21 History Magnebind 300mg 1 tab PO AC-LUNCH 07/18/21 07/18/21 History Midodrine [ProAmatine] 5 mg PO TID PRN 07/18/21 07/18/21 History Allergies Allergy/AdvReac Type Severity Reaction Status Date / Time adhesive Allergy Rash/Hives Verified 07/18/21 10:16 codeine Allergy Rash/Hives Verified 07/18/21 10:16 erythromycin base Allergy Rash/Hives Verified 07/18/21 10:16 [Erythromycin Base] Penicillins Allergy Swelling Verified 07/18/21 10:16 Physical Exam Vitals: Vital Signs Temp Pulse Pulse Pulse Resp BP BP 07/19/21 04:32 98.0 F 82 16 155/74 07/18/21 23:14 98.0 F 74 16 137/72 07/18/21 23:10 74 16 07/18/21 22:09 93 18 145/74 07/18/21 20:00 81 18 132/84 07/18/21 18:36 97.9 F 81 16 139/76 07/18/21 15:25 75 16 157/85 07/18/21 10:36 67 18 151/73 Pulse Ox 07/19/21 04:32 98 07/18/21 23:14 95 07/18/21 23:10 07/18/21 22:09 94 L 07/18/21 20:00 94 L 07/18/21 18:36 07/18/21 15:25 97 07/18/21 10:36 100 Intake and Output 07/18/21 07/19/21 07/19/21 22:59 06:59 14:59 Output Total 1999 Balance -1999 Output: Hemodialysis 1999 Other: Voiding Method Bedside Commode Diaper Weight 80.286 kg Results - Lab Results Most recent lab results Calcium 10.4 mg/dL (8.4-10.2) H 07/18/21 09:25 Magnesium 2.4 mg/dL (1.6-2.3) H 07/18/21 09:25 07/18/21 09:25 07/18/21 09:25 Assessment and Plan Plan: Assessment: 1. End-stage renal disease maintained on hemodialysis on Wednesday schedule via permacath. 2. Status post fall. 3. 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 4. Diabetes mellitus. 5. Hypercalcemia. Unclear cause. She is not on calcium based binder. No calcium or vitamin D supplements. Plan: Hemodialysis on Wednesday. Check further workup for hypercalcemia. Labs pending today. Thank you for the consultation. I will continue to follow the patient with you during her hospital stay.
[2021-07-19 12:35] LABS: Glucose,Whole Blood 331 mg/dL (75-99)
--- NOTE | 2021-07-19 12:37 | P.HPIM ---
History of Present Illness H&P Date: 07/18/21 Chief Complaint: Generalized weakness/fall 76-year-old female presents to the emergency room for a chief complaint of fall. Patient was getting out of bed to go to dialysis. Patient states she was rolling out but missed a step and fell to the ground on her knees. States she has chronic knee pain but this worsened her pain. Patient did not hit her head or neck. Patient does not take blood thinners. Patient has no other complaints at this time including shortness of breath, chest pain, abdominal pain, nausea or vomiting, headache, or visual changes. Workup in ED reveals a WBC of 7.3, hemoglobin 12.4 and platelet count of 146, sodium 140, potassium 2.9, BUN/creatinine of 51/2.53 and blood glucose of 153 UA is positive for leukocyte esterase and bacteria Patient is planned to be discharged from ED, however patient was unable to ambulate secondary to bilateral knee and excessive weakness Review of Systems REVIEW OF SYSTEMS: CONSTITUTIONAL: No fever, no malaise, no fatigue. HEENT: No recent visual problems or hearing problems. Denied any sore throat. CARDIOVASCULAR: No chest pain, orthopnea, PND, no palpitations, no syncope. PULMONARY: No shortness of breath, no cough, no hemoptysis. GASTROINTESTINAL: No diarrhea, no nausea, no vomiting, no abdominal pain. NEUROLOGICAL: No headaches, no weakness, no numbness. HEMATOLOGICAL: Denies any bleeding or petechiae. GENITOURINARY: Denies any burning micturition, frequency, or urgency. MUSCULOSKELETAL/RHEUMATOLOGICAL: Denies any joint pain, swelling, or any muscle pain. ENDOCRINE: Denies any polyuria or polydipsia. The rest of the 14-point review of systems is negative. 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 Osteopenia. Type II diabetes. Chronic kidney disease(looking into renal transplant). 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 Known grade 2 rectocele. hemodialysis History of Any Multi-Drug Resistant Organisms: None Reported Past Surgical History: Adenoidectomy, Appendectomy, Tonsillectomy Additional Past Surgical History / Comment(s): fatty tumor removed; hiatal hernia repair. Had a colonoscopy 2013. Left antecubital fistula placement for possible dialysis. Fistula Revision - left arm. Bilateral knees - gel insertion Past Anesthesia/Blood Transfusion Reactions: No Reported Reaction Past Psychological History: No Psychological Hx Reported Smoking Status: Never smoker Past Alcohol Use History: None Reported Past Drug Use History: None Reported - Past Family History Mother Family Medical History: Cancer Additional Family Medical History / Comment(s): Breast cancer. Grandmother had diabetes. Medications and Allergies Home Medications Medication Instructions Recorded Confirmed Type Cinacalcet [Sensipar] 30 mg PO MOWEFR 12/01/16 07/18/21 History Spironolactone [Aldactone] 12.5 mg PO DAILY 12/01/16 07/18/21 History allopurinoL [Zyloprim] 300 mg PO DAILY 11/02/17 07/18/21 History Furosemide [Lasix] 60 mg PO DAILY 05/11/18 07/18/21 History INSULIN LISPRO (humaLOG) [humaLOG] 16 units SQ AC-TID 01/17/19 07/18/21 History Carvedilol [Coreg] 6.25 mg PO BID 06/19/20 07/18/21 History Insulin Glargine,Hum.rec.anlog 30 unit SQ HS 06/19/20 07/18/21 History [Basaglar Kwikpen U-100] Rosuvastatin [Crestor] 20 mg PO DAILY 01/28/21 07/18/21 History Furosemide [Lasix] 40 mg PO AC-SUPPER 02/27/21 07/18/21 History Ferrous Sulfate [Feosol] 325 mg PO DAILY 07/18/21 07/18/21 History Magnebind 300mg 1 tab PO AC-LUNCH 07/18/21 07/18/21 History Midodrine [ProAmatine] 5 mg PO TID PRN 07/18/21 07/18/21 History Allergies Allergy/AdvReac Type Severity Reaction Status Date / Time adhesive Allergy Rash/Hives Verified 07/18/21 10:16 codeine Allergy Rash/Hives Verified 07/18/21 10:16 erythromycin base Allergy Rash/Hives Verified 07/18/21 10:16 [Erythromycin Base] Penicillins Allergy Swelling Verified 07/18/21 10:16 Physical Exam Vitals: Vital Signs Temp Pulse Resp BP Pulse Ox 07/18/21 10:36 67 18 151/73 100 07/18/21 07:38 97.0 F L 69 18 161/71 100 Intake and Output 07/17/21 07/18/21 07/18/21 22:59 06:59 14:59 Other: Weight 80.286 kg PHYSICAL EXAMINATION: GENERAL: The patient is alert and oriented x3, not in any acute distress. Well developed, well nourished. HEENT: Pupils are round and equally reacting to light. EOMI. No scleral icterus. No conjunctival pallor. Normocephalic, atraumatic. No pharyngeal erythema. No thyromegaly. CARDIOVASCULAR: S1 and S2 present. No murmurs, rubs, or gallops. PULMONARY: Chest is clear to auscultation, no wheezing or crackles. ABDOMEN: Soft, nontender, nondistended, normoactive bowel sounds. No palpable organomegaly. MUSCULOSKELETAL: No joint swelling or deformity. EXTREMITIES: No cyanosis, clubbing, or pedal edema. NEUROLOGICAL: Gross neurological examination did not reveal any focal deficits. SKIN: No rashes. Results CBC & Chem 7: 07/18/21 09:25 07/18/21 09:25 Labs: Abnormal Lab Results - Last 24 Hours (Table) 07/18/21 07/18/21 07/18/21 Range/Units 09:25 09:25 09:25 MCV 101.8 H (80.0-100.0) fL MCHC 30.8 L (31.0-37.0) g/dL Plt Count 146 L (150-450) k/uL APTT 20.9 L (22.0-30.0) sec BUN (7-17) mg/dL Creatinine (0.52-1.04) mg/dL Glucose (74-99) mg/dL Calcium (8.4-10.2) mg/dL Magnesium (1.6-2.3) mg/dL Urine Protein 1+ H (Negative) Urine Blood Small H (Negative) Ur Leukocyte Esterase Moderate H (Negative) Urine WBC 8 H (0-5) /hpf Urine Bacteria Few H (None) /hpf 07/18/21 Range/Units 09:25 MCV (80.0-100.0) fL MCHC (31.0-37.0) g/dL Plt Count (150-450) k/uL APTT (22.0-30.0) sec BUN 51 H (7-17) mg/dL Creatinine 3.53 H (0.52-1.04) mg/dL Glucose 153 H (74-99) mg/dL Calcium 10.4 H (8.4-10.2) mg/dL Magnesium 2.4 H (1.6-2.3) mg/dL Urine Protein (Negative) Urine Blood (Negative) Ur Leukocyte Esterase (Negative) Urine WBC (0-5) /hpf Urine Bacteria (None) /hpf Assessment and Plan Assessment: 1. UTI; Rocephin 1 g IV daily; await final culture results of further recommendations 2. End-stage renal disease/HD; nephrology on board 3. Hyperglycemia/diabetes mellitus controlled with insulin; we will continue with home dose of long-acting insulin 30 units subcu daily at bedtime along with 16 units of lispro before meals and 3 times a day 4. Hypertension; patient takes Coreg 6.25 mg by mouth twice a day - blood pressures currently soft; we will hold off on oral antihypertensive therapy and start patient on Midodrin 5 mg by mouth 3 times a day 5. Hyperlipidemia; Lipitor 40 mg by mouth daily at bedtime; takes Crestor 20 mg daily 6. Osteoarthritis; PT/OT consulted and recommendations are pending 7. CVA/TIA; patient remains on statin therapy; currently not on aspirin 8. Fall/generalized weakness/inability to ambulate; patient will be continued for observation and PT/OT is consulted for evaluation and discharge recommendations DVT prophylaxis; SCDs/subcu heparin CODE STATUS; full code
[2021-07-19] MEDS: FUROSEMIDE 40 MG TAB PO SCH (17:07)
[2021-07-19 17:46] LABS: Glucose,Whole Blood 104 mg/dL (75-99)
[2021-07-19 17:47] LABS: Protein, Total 6.4 g/dL (6.2-8.2)
[2021-07-19 17:58] LABS: African American GFR (CKD) 16.2 (60.0-200.0); Anion Gap 16.7 mmol/L (10.00-18.00); BUN/Creat Ratio 10.1 Ratio (12.00-20.00); Blood Urea Nitrogen 31.5 mg/dL (9.0-27.0); Calcium 10.2 mg/dL (8.7-10.3); Carbon Dioxide 24.4 mmol/L (20.0-27.5); Potassium 3.9 mmol/L (3.5-5.5)
[2021-07-19 20:34] LABS: Glucose,Whole Blood 261 mg/dL (75-99)
[2021-07-19] MEDS: INSULIN DETEMIR (LEVEMIR) 100 UNIT/ML SYR SQ SCH (21:29)
[2021-07-20] MEDS: HYDROmorphone 0.5 MG/0.5 ML SYRINGE IVP PRN ×3 (05:11→19:36)
[2021-07-20 07:35] LABS: Glucose,Whole Blood 132 mg/dL (75-99)
[2021-07-20 07:48] LABS: Basophils # (A) 0.1 k/uL (0-0.2); Basophils % (A) 1 %; Eosinophils # (A) 0.5 k/uL (0-0.7); Eosinophils % (A) 7 %; HCT 37.5 % (34.0-46.0); HGB 11.7 gm/dL (11.4-16.0); Hypochromasia Moderate; Lymphocytes # (A) 1.5 k/uL (1.0-4.8); Lymphocytes % (A) 20 %; MCH 32.2 pg (25.0-35.0); MCHC 31.3 g/dL (31.0-37.0); MCV 102.8 fL (80.0-100.0); Macrocytosis Slight; Mean Platelet Volume 9.1; Monocytes # (A) 0.6 k/uL (0-1.0); Monocytes % (A) 9 %; Neutrophils # (A) 4.6 k/uL (1.3-7.7); Neutrophils % (A) 61 %; Platelet Count 148 k/uL (150-450); RBC 3.65 m/uL (3.80-5.40); RDW 15.2 % (11.5-15.5); WBC 7.5 k/uL (3.8-10.6)
[2021-07-20] MEDS: carvediloL 6.25 MG TAB PO SCH ×2 (08:27→21:16)
[2021-07-20] MEDS: FERROUS SULFATE 325 MG TAB PO SCH (08:27)
[2021-07-20] MEDS: INSULIN ASPART (NovoLOG) 100 UNIT/ML VIAL SQ SCH ×3 (08:27→17:58)
[2021-07-20] MEDS: ATORVASTATIN 40 MG TAB PO SCH (08:27)
[2021-07-20] MEDS: SPIRONOLACTONE 25 MG TAB PO SCH (08:27)
[2021-07-20] MEDS: allopurinoL 300 MG TAB PO SCH (08:27)
--- NOTE | 2021-07-20 10:13 | P.PN ---
Subjective Patient is seen in follow-up for end-stage renal disease. She is maintained on hemodialysis on Wednesday schedule. Resting in bed. Having breakfast. No active complaints. Hemodynamically stable. Vital signs are stable. General: The patient appeared well nourished and normally developed. HEENT: Head exam is unremarkable. Neck is without jugular venous distension. LUNGS: Breath sounds decreased. HEART: Rate and Rhythm are regular. ABDOMEN: Soft, no distention. EXTREMITITES: No edema. Objective - Vital Signs Vital signs: Vital Signs Temp 98 F 07/20/21 05:10 Pulse 64 07/20/21 05:10 Resp 20 07/20/21 05:10 BP 133/74 07/20/21 05:10 Pulse Ox 94 L 07/20/21 05:10 Intake & Output 07/19/21 07/20/21 07/20/21 18:59 06:59 18:59 Intake Total 240 Output Total 300 Balance -60 Intake: Oral 240 Output: Urine 300 Other: Voiding Method Bedside Commode Bedside Commode Diaper Diaper # Voids 2 1 - Labs CBC & Chem 7: 07/20/21 07:07 07/19/21 09:50 Labs: Abnormal Lab Results - Last 24 Hours (Table) 07/19/21 07/19/21 07/19/21 Range/Units 09:50 09:50 12:34 RBC (3.80-5.40) m/uL MCV (80.0-100.0) fL Plt Count (150-450) k/uL BUN 31.5 H (9.0-27.0) mg/dL Creatinine 3.1 H (0.6-1.5) mg/dL Est GFR (CKD-EPI)AfAm 16.2 L (60.0-200.0) Est GFR (CKD-EPI)NonAf 14.0 L (60.0-200.0) BUN/Creatinine Ratio 10.10 L (12.00-20.00) Ratio Glucose 213 H (70-110) mg/dL POC Glucose (mg/dL) 331 H (75-99) mg/dL Vitamin D 25-Hydroxy 29.4 L (30.0-100.0) ng/mL PTH Intact 265.0 H (14.0-72.0) pg/mL 07/19/21 07/19/21 07/20/21 Range/Units 17:45 20:29 07:07 RBC 3.65 L (3.80-5.40) m/uL MCV 102.8 H (80.0-100.0) fL Plt Count 148 L (150-450) k/uL BUN (9.0-27.0) mg/dL Creatinine (0.6-1.5) mg/dL Est GFR (CKD-EPI)AfAm (60.0-200.0) Est GFR (CKD-EPI)NonAf (60.0-200.0) BUN/Creatinine Ratio (12.00-20.00) Ratio Glucose (70-110) mg/dL POC Glucose (mg/dL) 104 H 261 H (75-99) mg/dL Vitamin D 25-Hydroxy (30.0-100.0) ng/mL PTH Intact (14.0-72.0) pg/mL 07/20/21 Range/Units 07:34 RBC (3.80-5.40) m/uL MCV (80.0-100.0) fL Plt Count (150-450) k/uL BUN (9.0-27.0) mg/dL Creatinine (0.6-1.5) mg/dL Est GFR (CKD-EPI)AfAm (60.0-200.0) Est GFR (CKD-EPI)NonAf (60.0-200.0) BUN/Creatinine Ratio (12.00-20.00) Ratio Glucose (70-110) mg/dL POC Glucose (mg/dL) 132 H (75-99) mg/dL Vitamin D 25-Hydroxy (30.0-100.0) ng/mL PTH Intact (14.0-72.0) pg/mL Assessment and Plan Plan: Assessment: 1. End-stage renal disease maintained on hemodialysis on Wednesday schedule via permacath. 2. Status post fall. 3. 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 4. Diabetes mellitus. 5. Hypercalcemia. Unclear cause. She is not on calcium based binder. No calcium or vitamin D supplements. Vitamin D level 29.4. PTH 265. Plan: Hemodialysis on Wednesday. Follow-up pending workup for hypercalcemia. Maintain Sensipar.
[2021-07-20 11:26] LABS: African American GFR (CKD) 11.5 (60.0-200.0); Anion Gap 16.6 mmol/L (10.00-18.00); BUN/Creat Ratio 11.95 Ratio (12.00-20.00); Blood Urea Nitrogen 49.7 mg/dL (9.0-27.0); Calcium 10.1 mg/dL (8.7-10.3); Non-African American GFR(CKD) 9.9 (60.0-200.0); Potassium 4.3 mmol/L (3.5-5.5)
[2021-07-20 12:04] LABS: Glucose,Whole Blood 149 mg/dL (75-99)
[2021-07-20] MEDS: CALCIUM CARB-MAG CARB-FOLIC 1 EACH TAB PO SCH (14:02)
[2021-07-20 17:55] LABS: Glucose,Whole Blood 116 mg/dL (75-99)
[2021-07-20] MEDS: FUROSEMIDE 40 MG TAB PO SCH (17:58)
--- NOTE | 2021-07-20 19:33 | P.PN ---
Subjective Progress Note Date: 07/19/21 76-year-old female presents to the emergency room for a chief complaint of fall. Patient was getting out of bed to go to dialysis. Patient states she was rolling out but missed a step and fell to the ground on her knees. States she has chronic knee pain but this worsened her pain. Patient did not hit her head or neck. Patient does not take blood thinners. Patient has no other complaints at this time including shortness of breath, chest pain, abdominal pain, nausea or vomiting, headache, or visual changes. Workup in ED reveals a WBC of 7.3, hemoglobin 12.4 and platelet count of 146, sodium 140, potassium 2.9, BUN/creatinine of 51/2.53 and blood glucose of 153 UA is positive for leukocyte esterase and bacteria Patient is planned to be discharged from ED, however patient was unable to ambulate secondary to bilateral knee and excessive weakness Objective - Vital Signs Vital signs: Vital Signs Temp 98.0 F 07/19/21 04:32 Pulse 81 07/19/21 08:35 Resp 16 07/19/21 08:35 BP 155/74 07/19/21 04:32 Pulse Ox 98 07/19/21 04:32 Intake & Output 07/18/21 07/19/21 07/19/21 18:59 06:59 18:59 Output Total 1999 Balance -1999 Weight 80.286 kg 80.286 kg Output: Hemodialysis 1999 Other: Voiding Method Bedside Commode Bedside Commode Diaper Diaper - Exam GENERAL: The patient is alert and oriented x3, not in any acute distress. Well developed, well nourished. HEENT: Pupils are round and equally reacting to light. EOMI. No scleral icterus. No conjunctival pallor. Normocephalic, atraumatic. No pharyngeal erythema. No thyromegaly. CARDIOVASCULAR: S1 and S2 present. No murmurs, rubs, or gallops. PULMONARY: Chest is clear to auscultation, no wheezing or crackles. ABDOMEN: Soft, nontender, nondistended, normoactive bowel sounds. No palpable organomegaly. MUSCULOSKELETAL: No joint swelling or deformity. EXTREMITIES: No cyanosis, clubbing, or pedal edema. NEUROLOGICAL: Gross neurological examination did not reveal any focal deficits. SKIN: No rashes. - Labs CBC & Chem 7: 07/20/21 07:07 07/20/21 07:07 Labs: Abnormal Lab Results - Last 24 Hours (Table) 07/18/21 07/19/21 Range/Units 22:06 12:34 POC Glucose (mg/dL) 219 H 331 H (75-99) mg/dL Assessment and Plan Assessment: 1. UTI; Rocephin 1 g IV daily; await final culture results of further recommendations 2. End-stage renal disease/HD; nephrology on board 3. Hyperglycemia/diabetes mellitus controlled with insulin; we will continue with home dose of long-acting insulin 30 units subcu daily at bedtime along with 16 units of lispro before meals and 3 times a day 4. Hypertension; patient takes Coreg 6.25 mg by mouth twice a day - blood pressures currently soft; we will hold off on oral antihypertensive therapy and start patient on Midodrin 5 mg by mouth 3 times a day 5. Hyperlipidemia; Lipitor 40 mg by mouth daily at bedtime; takes Crestor 20 mg daily 6. Osteoarthritis; PT/OT consulted and recommendations are pending 7. CVA/TIA; patient remains on statin therapy; currently not on aspirin 8. Fall/generalized weakness/inability to ambulate; patient will be continued for observation and PT/OT is consulted for evaluation and discharge recommendations DVT prophylaxis; SCDs/subcu heparin CODE STATUS; full code
--- NOTE | 2021-07-20 19:40 | P.PN ---
Subjective Progress Note Date: 07/20/21 Principal diagnosis: UTI Hyperglycemia/uncontrolled diabetes Fall/generalized weakness/debility 76-year-old female presents to the emergency room for a chief complaint of fall. Patient was getting out of bed to go to dialysis. Patient states she was ro lling out but missed a step and fell to the ground on her knees. States she has chronic knee pain but this worsened her pain. Patient did not hit her head or neck. Patient does not take blood thinners. Patient has no other complaints at this time including shortness of breath, chest pain, abdominal pain, nausea or vomiting, headache, or visual changes. Workup in ED reveals a WBC of 7.3, hemoglobin 12.4 and platelet count of 146, sodium 140, potassium 2.9, BUN/creatinine of 51/2.53 and blood glucose of 153 UA is positive for leukocyte esterase and bacteria Patient is planned to be discharged from ED, however patient was unable to ambulate secondary to bilateral knee and excessive weakness 07/20/2021 Patient is seen and evaluated in room at bedside; denies any specific complaints Vital signs are reviewed temperature 97.6, pulse 60, respiration 18 and blood pressure of 164/67 Patient remains on IV Rocephin for UTI; no culture is available; plan to complete 5 days of empiric antibiotic treatment; monitor CBC Await PT evaluation for discharge planning Objective - Vital Signs Vital signs: Vital Signs Temp 98 F 07/20/21 05:10 Pulse 64 07/20/21 05:10 Resp 20 07/20/21 05:10 BP 133/74 07/20/21 05:10 Pulse Ox 94 L 07/20/21 05:10 Intake & Output 07/19/21 07/20/21 07/20/21 18:59 06:59 18:59 Intake Total 240 Output Total 300 Balance -60 Intake: Oral 240 Output: Urine 300 Other: Voiding Method Bedside Commode Bedside Commode Bedside Commode Diaper Diaper Diaper # Voids 2 1 - Exam GENERAL: The patient is alert and oriented x3, not in any acute distress. Well developed, well nourished. HEENT: Pupils are round and equally reacting to light. EOMI. No scleral icterus. No conjunctival pallor. Normocephalic, atraumatic. No pharyngeal erythema. No thyromegaly. CARDIOVASCULAR: S1 and S2 present. No murmurs, rubs, or gallops. PULMONARY: Chest is clear to auscultation, no wheezing or crackles. ABDOMEN: Soft, nontender, nondistended, normoactive bowel sounds. No palpable organomegaly. MUSCULOSKELETAL: No joint swelling or deformity. EXTREMITIES: No cyanosis, clubbing, or pedal edema. NEUROLOGICAL: Gross neurological examination did not reveal any focal deficits. SKIN: No rashes. - Labs CBC & Chem 7: 07/20/21 07:07 07/20/21 07:07 Labs: Abnormal Lab Results - Last 24 Hours (Table) 07/19/21 07/19/21 07/19/21 Range/Units 09:50 09:50 17:45 RBC (3.80-5.40) m/uL MCV (80.0-100.0) fL Plt Count (150-450) k/uL BUN 31.5 H (9.0-27.0) mg/dL Creatinine 3.1 H (0.6-1.5) mg/dL Est GFR (CKD-EPI)AfAm 16.2 L (60.0-200.0) Est GFR (CKD-EPI)NonAf 14.0 L (60.0-200.0) BUN/Creatinine Ratio 10.10 L (12.00-20.00) Ratio Glucose 213 H (70-110) mg/dL POC Glucose (mg/dL) 104 H (75-99) mg/dL Vitamin D 25-Hydroxy 29.4 L (30.0-100.0) ng/mL PTH Intact 265.0 H (14.0-72.0) pg/mL 07/19/21 07/20/21 07/20/21 Range/Units 20:29 07:07 07:07 RBC 3.65 L (3.80-5.40) m/uL MCV 102.8 H (80.0-100.0) fL Plt Count 148 L (150-450) k/uL BUN 49.7 H (9.0-27.0) mg/dL Creatinine 4.2 H (0.6-1.5) mg/dL Est GFR (CKD-EPI)AfAm 11.5 L (60.0-200.0) Est GFR (CKD-EPI)NonAf 9.9 L (60.0-200.0) BUN/Creatinine Ratio 11.95 L (12.00-20.00) Ratio Glucose 141 H (70-110) mg/dL POC Glucose (mg/dL) 261 H (75-99) mg/dL Vitamin D 25-Hydroxy (30.0-100.0) ng/mL PTH Intact (14.0-72.0) pg/mL 07/20/21 07/20/21 Range/Units 07:34 12:03 RBC (3.80-5.40) m/uL MCV (80.0-100.0) fL Plt Count (150-450) k/uL BUN (9.0-27.0) mg/dL Creatinine (0.6-1.5) mg/dL Est GFR (CKD-EPI)AfAm (60.0-200.0) Est GFR (CKD-EPI)NonAf (60.0-200.0) BUN/Creatinine Ratio (12.00-20.00) Ratio Glucose (70-110) mg/dL POC Glucose (mg/dL) 132 H 149 H (75-99) mg/dL Vitamin D 25-Hydroxy (30.0-100.0) ng/mL PTH Intact (14.0-72.0) pg/mL Assessment and Plan Assessment: 1. UTI; Rocephin 1 g IV daily; await final culture results of further rufino mmendations 2. End-stage renal disease/HD; nephrology on board 3. Hyperglycemia/diabetes mellitus controlled with insulin; we will continue with home dose of long-acting insulin 30 units subcu daily at bedtime along with 16 units of lispro before meals and 3 times a day 4. Hypertension; patient takes Coreg 6.25 mg by mouth twice a day - blood pressures currently soft; we will hold off on oral antihypertensive therapy and start patient on Midodrin 5 mg by mouth 3 times a day 5. Hyperlipidemia; Lipitor 40 mg by mouth daily at bedtime; takes Crestor 20 mg daily 6. Osteoarthritis; PT/OT consulted and recommendations are pending 7. CVA/TIA; patient remains on statin therapy; currently not on aspirin 8. Fall/generalized weakness/inability to ambulate; patient will be continued for observation and PT/OT is consulted for evaluation and discharge recommendations DVT prophylaxis; SCDs/subcu heparin CODE STATUS; full code
[2021-07-20 20:36] LABS: Glucose,Whole Blood 158 mg/dL (75-99)
[2021-07-20] MEDS: INSULIN DETEMIR (LEVEMIR) 100 UNIT/ML SYR SQ SCH (21:16)
[2021-07-21] MEDS: HYDROmorphone 0.5 MG/0.5 ML SYRINGE IVP PRN ×3 (02:46→19:42)
[2021-07-21 07:05] LABS: Glucose,Whole Blood 101 mg/dL (75-99)
[2021-07-21] MEDS: carvediloL 6.25 MG TAB PO SCH ×2 (08:32→20:08)
[2021-07-21] MEDS: ATORVASTATIN 40 MG TAB PO SCH (08:32)
[2021-07-21] MEDS: SPIRONOLACTONE 25 MG TAB PO SCH (08:32)
[2021-07-21] MEDS: FERROUS SULFATE 325 MG TAB PO SCH (08:32)
[2021-07-21] MEDS: allopurinoL 300 MG TAB PO SCH (08:32)
[2021-07-21] MEDS: INSULIN ASPART (NovoLOG) 100 UNIT/ML VIAL SQ SCH ×3 (08:43→18:08)
[2021-07-21 12:17] LABS: Angiotensin-1 Converting Enz. 16 U/L (8-52)
[2021-07-21 12:45] LABS: Glucose,Whole Blood 96 mg/dL (75-99)
[2021-07-21 13:28] LABS: Basophils # (A) 0.1 k/uL (0-0.2); Basophils % (A) 1 %; Eosinophils # (A) 0.5 k/uL (0-0.7); Eosinophils % (A) 9 %; HCT 38.5 % (34.0-46.0); HGB 12.1 gm/dL (11.4-16.0); Hypochromasia Slight; Lymphocytes # (A) 1.3 k/uL (1.0-4.8); Lymphocytes % (A) 22 %; MCH 31.6 pg (25.0-35.0); MCHC 31.3 g/dL (31.0-37.0); MCV 100.8 fL (80.0-100.0); Macrocytosis Slight; Mean Platelet Volume 9.3; Monocytes # (A) 0.4 k/uL (0-1.0); Monocytes % (A) 7 %; Neutrophils # (A) 3.6 k/uL (1.3-7.7); Neutrophils % (A) 60 %; Platelet Count 183 k/uL (150-450); RBC 3.82 m/uL (3.80-5.40); RDW 15.3 % (11.5-15.5)
[2021-07-21 13:29] LABS: ALT 12 U/L (4-34); AST 20 U/L (14-36); African American GFR (CKD) 15 (>60 ml/min/1.73 sqM); Albumin 3.4 g/dL (3.5-5.0); Albumin/Globulin Ratio 1.2; Alkaline Phosphatase 73 U/L (38-126); Anion Gap 8 mmol/L; Blood Urea Nitrogen 53 mg/dL (7-17); Calcium 9.8 mg/dL (8.4-10.2); Carbon Dioxide 27 mmol/L (22-30); Chloride 102 mmol/L (98-107); Globulin 2.9 g/dL; Glucose 105 mg/dL (74-99); Non-African American GFR(CKD) 13 (>60 ml/min/1.73 sqM); Potassium 3.8 mmol/L (3.5-5.1); Sodium 137 mmol/L (137-145); Total Bilirubin 0.4 mg/dL (0.2-1.3); Total Protein 6.3 g/dL (6.3-8.2)
[2021-07-21] MEDS: CINACALCET 30 MG TAB PO SCH (13:57)
[2021-07-21] MEDS: CALCIUM CARB-MAG CARB-FOLIC 1 EACH TAB PO SCH (13:57)
--- NOTE | 2021-07-21 14:24 | NM ---
EXAMINATION TYPE: NM parathyroid w/spect DATE OF EXAM: 07/21/2021 COMPARISON: NONE HISTORY: Hypercalcemia TECHNIQUE: Following administration of 25.1 mCi Tc99m Sestamibi. Anterior projection images of the neck and ches t were obtained 10 minutes and 3.5 hours post injection. SPECT images of the neck and chest were obt ained and reconstructed in three axes. FINDINGS: Thyroid tracer washout: Delayed images demonstrate near-complete tracer washout from the thyroid. Parathyroid uptake: None. The two-hour delayed images do not demonstrate any focal abnormal persisten t uptake in the region of the parathyroid glands to suggest parathyroid adenoma. Normal uptake: There is physiological tracer uptake in the myocardium, liver, salivary glands, and th yroid gland. IMPRESSION: Normal parathyroid imaging study. No evidence for mediastinal uptake to suggest mediastinal parathyro id adenoma
[2021-07-21 15:17] LABS: Albumin 3.55 g/dL (3.80-4.90); Gamma Globulin 0.68 g/dL (0.70-1.50)
[2021-07-21 15:38] LABS: Hepatitis B Surface AB- Quant 3.5 mIU/mL; Hepatitis B Surface Antibody Nonreactive (Nonreactive); Hepatitis B Surface Antigen Nonreactive (Nonreactive)
[2021-07-21 17:18] LABS: Glucose,Whole Blood 137 mg/dL (75-99)
[2021-07-21] MEDS: FUROSEMIDE 40 MG TAB PO SCH (18:08)
[2021-07-21 19:19] LABS: Vitamin D, 1, 25-Dihydroxy 18 pg/mL (20 - 79)
[2021-07-21] MEDS ORDERED: ACETAMINOPHEN TAB 325 MG TAB PO PRN (19:58)
[2021-07-21] MEDS: INSULIN DETEMIR (LEVEMIR) 100 UNIT/ML SYR SQ SCH (20:20)
[2021-07-21 21:29] LABS: Glucose,Whole Blood 189 mg/dL (75-99)
--- NOTE | 2021-07-21 22:10 | PN ---
PROGRESS NOTE DATE OF SERVICE: 07/21/2021 This 76-year-old woman was admitted with weakness, also had renal failure. Parathyroid scan is negative. No chest pain. No palpitations. No fever. PHYSICAL EXAMINATION: Alert and oriented x2. Pulse is 73, blood pressure 120/74, respirations 18, temperature 97.8, pulse ox 99% on room air. HEENT: Conjunctivae normal. Oral mucosa moist. Neck is no JVD. No carotid bruit. Cardiovascular system: S1, S2 muffled. Respiration: Breath sounds diminished in the bases. Abdomen: Soft, nontender. Nervous system: Mild diffuse weakness. LABS: MCV 100.8 and creatinine is 3.31. ASSESSMENT: 1. Acute urinary tract infection, present on admission with possible sepsis. 2. Hyperglycemia with uncontrolled diabetes type 2. 3. Fall and generalized weakness and debility. 4. Acute on chronic kidney disease with chronic kidney disease stage 3 baseline. 5. Diabetes mellitus, type 2. 6. History of cerebrovascular accident, transient ischemic attack. 7. Hypertension. 8. Hyperlipidemia. 9. History of adenoidectomy. 10.History of hiatal hernia repair. 11.Obesity with body mass of 34.6. 12.Gait dysfunction. 13.FULL CODE. RECOMMENDATIONS AND DISCUSSION: This 76 -year-old woman who presented with multiple complex medical issues, we will monitor the patient closely, continue the current medications, management and symptomatic treatment. At this time, I recommend PT/OT evaluation, possible ECF rehab. Otherwise, recommend monitor blood sugars closely. Repeat labs will be ordered in the morning. Nephrology following the patient regarding the renal failure, seems to be stabilizing at this time and once the patient is stabilized, ECF rehab is an option. Further recommendations to follow. MMODL / IJN: [id number] /
[2021-07-22 06:28] LABS: Basophils % (A) 1 %; Eosinophils # (A) 0.5 k/uL (0-0.7); Eosinophils % (A) 6 %; HGB 12.3 gm/dL (11.4-16.0); Hypochromasia Slight; Lymphocytes # (A) 1.7 k/uL (1.0-4.8); Lymphocytes % (A) 22 %; MCH 31.3 pg (25.0-35.0); MCHC 30.9 g/dL (31.0-37.0); MCV 101.3 fL (80.0-100.0); Macrocytosis Slight; Mean Platelet Volume 9.4; Monocytes # (A) 0.6 k/uL (0-1.0); Monocytes % (A) 8 %; Neutrophils # (A) 4.7 k/uL (1.3-7.7); Neutrophils % (A) 61 %; Platelet Count 175 k/uL (150-450); RBC 3.94 m/uL (3.80-5.40); RDW 15.3 % (11.5-15.5); WBC 7.7 k/uL (3.8-10.6)
[2021-07-22 07:16] LABS: Glucose,Whole Blood 217 mg/dL (75-99)
[2021-07-22] MEDS: carvediloL 6.25 MG TAB PO SCH (08:09)
[2021-07-22] MEDS: SPIRONOLACTONE 25 MG TAB PO SCH (08:09)
[2021-07-22] MEDS: FERROUS SULFATE 325 MG TAB PO SCH (08:09)
[2021-07-22] MEDS: ATORVASTATIN 40 MG TAB PO SCH (08:09)
[2021-07-22] MEDS: allopurinoL 300 MG TAB PO SCH (08:10)
[2021-07-22] MEDS: INSULIN ASPART (NovoLOG) 100 UNIT/ML VIAL SQ SCH ×2 (08:10→13:05)
[2021-07-22 09:09] LABS: African American GFR (CKD) 15.8 (60.0-200.0); Anion Gap 16.1 mmol/L (10.00-18.00); Blood Urea Nitrogen 41.6 mg/dL (9.0-27.0); Calcium 9.9 mg/dL (8.7-10.3); Carbon Dioxide 22.9 mmol/L (20.0-27.5); Non-African American GFR(CKD) 13.6 (60.0-200.0); Potassium 4.4 mmol/L (3.5-5.5)
--- NOTE | 2021-07-22 10:45 | P.PN ---
Subjective Patient is seen in follow-up for end-stage renal disease. She is maintained on hemodialysis on Wednesday schedule. No problems with dialysis yesterday. No active complaints. Hemodynamically stable. Vital signs are stable. HEENT: Head exam is unremarkable. LUNGS: Breath sounds decreased. HEART: Rate and Rhythm are regular. ABDOMEN: Soft, no distention. EXTREMITITES: No edema. Objective - Vital Signs Vital signs: Vital Signs Temp 98.2 F 07/22/21 04:56 Pulse 77 07/22/21 04:56 Resp 18 07/22/21 04:56 BP 148/69 07/22/21 04:56 Pulse Ox 97 07/22/21 04:56 Intake & Output 07/21/21 07/22/21 07/22/21 18:59 06:59 18:59 Intake Total 1820 480 Output Total 1320 Balance 500 480 Intake: Oral 480 Hemodialysis 1820 Output: Hemodialysis 1320 Other: Voiding Method Bedside Commode Diaper # Voids 6 2 - Labs CBC & Chem 7: 07/22/21 06:08 07/22/21 06:08 Labs: Abnormal Lab Results - Last 24 Hours (Table) 07/19/21 07/19/21 07/21/21 Range/Units 09:50 09:50 13:00 MCV (80.0-100.0) fL MCHC (31.0-37.0) g/dL BUN 53 H (7-17) mg/dL Creatinine 3.31 H (0.52-1.04) mg/dL Est GFR (CKD-EPI)AfAm (60.0-200.0) Est GFR (CKD-EPI)NonAf (60.0-200.0) Glucose 105 H (74-99) mg/dL POC Glucose (mg/dL) (75-99) mg/dL Albumin 3.4 L (3.5-5.0) g/dL Albumin (PEP) 3.55 L (3.80-4.90) g/dL Ejcvs-1-Wszesglam 1.07 H (0.60-1.00) g/dL Gamma Globulins 0.68 L (0.70-1.50) g/dL Vit D 1,25-Dihydroxy 18 L (20 - 79) pg/mL 07/21/21 07/21/21 07/21/21 Range/Units 13:08 17:17 21:28 MCV 100.8 H (80.0-100.0) fL MCHC (31.0-37.0) g/dL BUN (7-17) mg/dL Creatinine (0.52-1.04) mg/dL Est GFR (CKD-EPI)AfAm (60.0-200.0) Est GFR (CKD-EPI)NonAf (60.0-200.0) Glucose (74-99) mg/dL POC Glucose (mg/dL) 137 H 189 H (75-99) mg/dL Albumin (3.5-5.0) g/dL Albumin (PEP) (3.80-4.90) g/dL Sylfd-7-Scozjsaxw (0.60-1.00) g/dL Gamma Globulins (0.70-1.50) g/dL Vit D 1,25-Dihydroxy (20 - 79) pg/mL 07/22/21 07/22/21 07/22/21 Range/Units 06:08 06:08 07:14 MCV 101.3 H (80.0-100.0) fL MCHC 30.9 L (31.0-37.0) g/dL BUN 41.6 H (7-17) mg/dL Creatinine 3.2 H (0.52-1.04) mg/dL Est GFR (CKD-EPI)AfAm 15.8 L (60.0-200.0) Est GFR (CKD-EPI)NonAf 13.6 L (60.0-200.0) Glucose 235 H (74-99) mg/dL POC Glucose (mg/dL) 217 H (75-99) mg/dL Albumin (3.5-5.0) g/dL Albumin (PEP) (3.80-4.90) g/dL Ypkwm-9-Zslhodjwi (0.60-1.00) g/dL Gamma Globulins (0.70-1.50) g/dL Vit D 1,25-Dihydroxy (20 - 79) pg/mL Assessment and Plan Plan: Assessment: 1. End-stage renal disease maintained on hemodialysis on Wednesday schedule via permacath. 2. Status post fall. 3. 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 4. Diabetes mellitus. 5. Hypercalcemia. Unclear cause. She is not on calcium based binder. No calcium or vitamin D supplements. Vitamin D level 29.4. 1,25 D3 18. SUKHDEEP 16. PTH 265. No evidence of parathyroid adenoma on nuclear scan. Calcium level stable. Plan: Hemodialysis tomorrow. Maintain Sensipar.
[2021-07-22 11:42] VITALS: BP 156/76; PULSE 72; RESP 16; TEMP 98
[2021-07-22 11:45] LABS: Glucose,Whole Blood 204 mg/dL (75-99)
[2021-07-22] MEDS: CALCIUM CARB-MAG CARB-FOLIC 1 EACH TAB PO SCH (13:05)
--- NOTE | 2021-07-22 13:29 | P.DS ---
Providers Date of admission: 07/18/21 11:55 Expected date of discharge: 07/22/21 Attending physician: Benji Funes MD Consults: 07/18/21 11:44 Consult Physician Routine Consulting Provider: Lorenza Borges Consult Reason/Comments: ESRD, dialysis Do you want consulting provider notified?: Yes Primary care physician: Isacc Valdez Hospital Course: Final diagnosis Acute urinary tract infection, present on admission with possible sepsis Hyperglycemia with uncontrolled diabetes mellitus type 2 Fall and generalized weakness and debility Acute on chronic kidney disease with chronic kidney disease stage III baseline History of diabetes mellitus type 2 History of cerebrovascular accident, TIA Hypertension Hyperlipidemia History of adenoidectomy History of hiatal hernia repair obesity with a body mass index of 34.6 Gait dysfunction Full code Discharge disposition Patient is being discharged in a stable condition with guarded prognosis to [facility] for continued PT/OT therapy. Patient will follow-up with Dr. Rollins in the outpatient setting upon discharge. Patient is to continue with hemodialysis as scheduled on Mondays/Wednesdays/Fridays with next hemodialysis session being 07/23/2021. Patient will continue on oral Ceftin 500 mg twice daily for the next 3 days and then may discontinue. Recommend repeat labs of CBC and BMP in 2-3 days outpatient. Total time taken is greater than 35 minutes. Hospital course This is a 76-year-old female who was recently admitted with weakness and renal failure and being closely monitored by multiple medical consultations. Patient being followed closely by nephrology and maintained on Wednesday/Wednesday/Wednesday dialysis and will continue with hemodialysis with the next appointment being on 07/23/2021. Patient will need close outpatient follow-up with nephrology and repeat labs. Patient also had an acute urinary tract infection and was treated with IV ceftriaxone and we'll transition to oral Ceftin 500 mg twice daily for the next 3 days to complete the course. Patient continues to be weak and physical therapy recommending subacute rehab and patient will be going to [facility] for continued PT/OT therapy. She is diabetic and recommending Accu-Cheks before meals and at bedtime and continue with 3 times a day insulin along with long-acting insulin. Guarded prognosis. Currently no reports of chest pain, shortness of breath, or palpitations. Patient is afebrile. No reports of nausea or vomiting and patient is tolerating diet. Patient will be discharged to [facility] today. On exam vital signs are stable. Cardio S1, S2 are muffled. Respiratory system shows diminished breath sounds at the bases with no wheezing or rhonchi noted. Abdomen is soft and obese, and nontender. Nervous system shows diffuse weakness. Please refer to medication reconciliation sheet for a list of medications. Patient Condition at Discharge: Stable Plan - Discharge Summary Discharge Rx Participant: No New Discharge Prescriptions: New Cefuroxime Axetil [Ceftin] 500 mg PO BID 3 Days #6 tab Acetaminophen Tab [Tylenol] 650 mg PO Q6HR PRN tab PRN Reason: Fever And/ Or Pain Continue Spironolactone [Aldactone] 12.5 mg PO DAILY Cinacalcet [Sensipar] 30 mg PO MOWEFR allopurinoL [Zyloprim] 300 mg PO DAILY INSULIN LISPRO (humaLOG) [humaLOG] 16 units SQ AC-TID Carvedilol [Coreg] 6.25 mg PO BID Insulin Glargine,Hum.rec.anlog [Basaglar Kwikpen U-100] 30 unit SQ HS Rosuvastatin [Crestor] 20 mg PO DAILY Furosemide [Lasix] 40 mg PO AC-SUPPER Magnebind 300mg 1 tab PO AC-LUNCH Ferrous Sulfate [Iron (65 MG Elemental)] 325 mg PO DAILY Midodrine [ProAmatine] 5 mg PO TID PRN PRN Reason: low bp Discontinued Furosemide [Lasix] 60 mg PO DAILY Discharge Medication List Cinacalcet [Sensipar] 30 mg PO MOWEFR 12/01/16 [History] Spironolactone [Aldactone] 12.5 mg PO DAILY 12/01/16 [History] allopurinoL [Zyloprim] 300 mg PO DAILY 11/02/17 [History] INSULIN LISPRO (humaLOG) [humaLOG] 16 units SQ AC-TID 01/17/19 [History] Carvedilol [Coreg] 6.25 mg PO BID 06/19/20 [History] Insulin Glargine,Hum.rec.anlog [Basaglar Kwikpen U-100] 30 unit SQ HS 06/19/20 [History] Rosuvastatin [Crestor] 20 mg PO DAILY 01/28/21 [History] Furosemide [Lasix] 40 mg PO AC-SUPPER 02/27/21 [History] Ferrous Sulfate [Iron (65 MG Elemental)] 325 mg PO DAILY 07/18/21 [History] Magnebind 300mg 1 tab PO AC-LUNCH 07/18/21 [History] Midodrine [ProAmatine] 5 mg PO TID PRN 07/18/21 [History] Acetaminophen Tab [Tylenol] 650 mg PO Q6HR PRN tab 07/22/21 [Rx] Cefuroxime Axetil [Ceftin] 500 mg PO BID 3 Days #6 tab 07/22/21 [Rx] Follow up Appointment(s)/Referral(s): Garima Howard [Other] - As Needed Isacc Valdez MD [Primary Care Provider] - 1-2 days Jesus Earl DO [Doctor of Osteopathic Medicine] - 1-2 days Kai Anthony DO [STAFF PHYSICIAN] - 1 Week Ambulatory/Diagnostic Orders: Complete Blood Count w/diff [LAB.AMB] Time Frame: 2 Days, Location: None Selected Patient Instructions/Handouts: Fall Prevention for Older Adults (ED), Knee Pain (ED) Activity/Diet/Wound Care/Special Instructions: Patient is going to [facility] as tolerated Continue Ceftin 500 mg twice daily for the next 3 days to complete the course Follow-up CBC and BMP in 2-3 days Follow-up with nephrology and continue on Wednesday/Wednesday/Wednesday schedule of hemodialysis with next session being 07/23/2021 Follow-up primary care provider on discharge Follow-up orthopedics outpatient [facility] with consistent carb diet Continue to monitor Accu-Cheks before meals and at bedtime Please follow-up with your doctor or orthopedics in one to 2 days. Return to the emergency room for any worsening symptoms. Discharge Disposition: TRANSFER TO SNF/ECF
--- NOTE | 2021-07-25 12:58 | CDI ---
Documentation Clarification Form Date: 07/25/21 From: Aida Johnson Admit Date: 07/18/2021 11:55:00 AM Patient Name: Kaia Torres Visit Number: [id number] Discharge Date: 07/22/2021 03:37:00 PM ATTENTION: The Clinical Documentation Specialists (CDI) and [facility] Coding Staff appreciate your assistance in clarifying documentation. Please respond to the clarification below the line at the bottom and electronically sign. The CDI & [facility] Coding staff will review the response and follow-up if needed. Please note: Queries are made part of the Legal Health Record. If you have any questions, please contact the author of this message via ITS. Dr. Benji Funes, Discharge summary documents "acute urinary tract infection, present on admission with possible sepsis", which may lack sufficient clinical evidence/support in the medical record. Additional clarification is requested. History/Risk Factors: DM, HLD, HTN w ESRD, OA, HX of CVA/TIA Clinical Indicators: Lactic acid 1.3, WBC 7.3, Neutrophils 5.0, T 97.0, P 69, R 18, BP 161/71, O2 100 RA Treatment: No IV fluids, IV Rocephin (for UTI) Please clarify if sepsis is a valid diagnosis? [ ] Yes, sepsis is present as evidence by (additional clinical support): [ ] No, sepsis is ruled out [ ] Other (please specify diagnosis) [ ] Unable to determine SEPSIS ruled out MTDD
== END 2021-07-22 15:37 ==
LOC: EC 07:35 → INTOOBSV 11:55 → 5NMEDONC 11:55 → UNDODISIN 07-22 15:37
PROVIDERS: ADMIT Internal Medicine; ATTEND Internal Medicine
DX: N39.0 Urinary tract infection, site not specified (principal); I12.0 Hypertensive chronic kidney disease with stage 5 chronic kidney disease or end stage renal disease; N18.6 End stage renal disease; E11.22 Type 2 diabetes mellitus with diabetic chronic kidney disease; E11.65 Type 2 diabetes mellitus with hyperglycemia; Z20.822 Contact with and (suspected) exposure to COVID-19; E21.3 Hyperparathyroidism, unspecified; Z99.2 Dependence on renal dialysis; M85.80 Other specified disorders of bone density and structure, unspecified site; E78.5 Hyperlipidemia, unspecified; N81.6 Rectocele; G89.29 Other chronic pain; M17.0 Bilateral primary osteoarthritis of knee; R26.9 Unspecified abnormalities of gait and mobility; W10.9XXA Fall (on) (from) unspecified stairs and steps, initial encounter; M25.462 Effusion, left knee; M25.461 Effusion, right knee; E66.9 Obesity, unspecified; Z68.34 Body mass index [BMI] 34.0-34.9, adult; Z79.4 Long term (current) use of insulin; Z79.899 Other long term (current) drug therapy; Z88.5 Allergy status to narcotic agent; Z88.1 Allergy status to other antibiotic agents; Z88.0 Allergy status to penicillin; Z91.048 Other nonmedicinal substance allergy status; Z90.89 Acquired absence of other organs; Z87.01 Personal history of pneumonia (recurrent); Z98.890 Other specified postprocedural states; Z86.73 Personal history of transient ischemic attack (TIA), and cerebral infarction without residual deficits; Z87.19 Personal history of other diseases of the digestive system; Z87.2 Personal history of diseases of the skin and subcutaneous tissue; Z90.49 Acquired absence of other specified parts of digestive tract; Z83.3 Family history of diabetes mellitus; Z80.3 Family history of malignant neoplasm of breast
CPT/HCPCS: 99285; 96376 ×3; 96365; 96366 ×2; 96375; 96372; 36415; 93005; 97162; 97535; 97166; 82652; 80053 ×2; 80048 ×3; 82164; 83605; 83735; 85025 ×4; 85610; 85730; 86706; 87340; 81001; 84165; 82306; 83970; 86334; 86335; 83036; 87635 ×2; 73562; 71046; 78071; G0257 ×2; G0378 ×5; A9500; J0696 ×3; J1170 ×4; 90935

== ENCOUNTER → 2022-06-23 | Outpatient (CLI) | payer MEDICARE ==
--- NOTE | 2022-06-23 12:41 | BD ---
EXAMINATION TYPE: Axial Bone Density DATE OF EXAM: 06/23/2022 COMPARISON: 06/19/2020 CLINICAL HISTORY: 77 years year old Female. ICD-10 CODE: Z12.31 Screening, Z78.0 asymptomatic postme nopaus Height: 59.75" Weight: 176.7 FRAX RISK QUESTIONS: Alcohol (3 or more units per day): NO Family History (Parent hip fracture): NO Glucocorticoids (More than 3mos): NO (Ex: prednisone, prednisolone, methylprednisolone, dexamethasone, and hydrocortisone). History of Fracture in Adulthood: NO Secondary Osteoporosis: 1. Type 1 Diabetes: NO 2. Hyperthyroidism: NO 3. Menopause before 45: YES, 42 4. Malnutrition: NO 5. Chronic liver disease: NO Rheumatoid Arthritis: NO Current Tobacco Use: NO RISK FACTORS HISTORY OF: Hip Fracture (Right/Left): NO Spine Fracture: NO History of Wrist Fracture: NO Surgery to Spine/Hip(right/left)/Wrist (right/left): NO Family History of Osteoporosis: NO Active: NO Diet low in dairy products/other sources of calcium: YES Postmenopausal woman: YES Lost more than 2 inches in height since high school: YES Frequent falls: YES Poor Health: POOR Hyperparathyroidism: NO Adrenal Insufficiency: YES, DIALYSIS MEDICATIONS: Additional Medications: CHOLESTEROL MEDS, BLOOD PRESSURE MEDS, VIT D, MEDICATION TO BLOCK/REDUCE POTA SSIUM (RELATED TO DIALYSIS) Additional History: HX OF KIDNEY DISEASE, DIALYSIS EXAM MEASUREMENTS: Bone mineral densitometry was performed using the [employer] System. Bone mineral density as measured about the Lumbar spine is: ----- L1-L4(G/cm2): 0.899 T Score Values are as follows: ----- L1: -2.4 ----- L2: -3.0 ----- L3: -2.9 ----- L4: -1.4 ----- L1-L4: -2.3 Bone mineral density has: DECREASED 15.9% since study of: 06/19/2020 Bone mineral density about the R hip (g/cm2): 0.704 Bone mineral density about the L hip (g/cm2): 0.820 T Score values are as follows: -----R Neck: -2.4 -----L Neck: -1.6 -----R Total: -3.2 -----L Total: -2.7 Bone mineral density has: DECREASED 26.1% since study of: 06/19/2020 FRAX%s: The graph provided illustrates a 14.7% chance for a major osteoporotic fx and a 4.4% chance f or the hips probability for fx in 10 years time. IMPRESSION: Osteoporosis (T Score less than -2.5). There is increased fracture risk and therapy is usually indicated based on age. Re-Screen 1-2 years. NOTE: T-SCORE=SD OF THE YOUNG ADULT MEAN.
--- NOTE | 2022-06-23 16:41 | MM ---
Reason for Exam: Screening (asymptomatic). Last mammogram was performed 2 year(s) and 0 month(s) ago. Patient History: Menarche at age 14. First Full-Term at age 21. Postmenopausal. Hormonal Contraceptives for 4 years from age 22 until age 26. Mother had breast cancer, age 63. Risk Values: Myriam 5 year model risk: 3.3%. NCI Lifetime model risk: 7.0%. Prior Study Comparison: 11/02/2017 Bilateral Screening Mammogram, [facility]. 11/29/2018 Bilateral Screening Mammogram, [facility]. 06/19/2020 Bilateral Screening Mammogram, [facility]. Tissue Density: There are scattered fibroglandular densities. Findings: Analyzed By CAD. Stable few tiny round circumscribed masses on background fibroglandular tissue anteriorly in both breasts. There is no suspicious new group of microcalcifications or new distortion in either breast. Overall Assessment: Benign, BI-RAD 2 Management: Screening Mammogram of both breasts in 1 year. A clinical breast exam by your physician is recommended on an annual basis and results should be correlated with mammographic findings. Electronically signed and approved by: Yoshi Pham M.D.
== END | disposition home or self-care (01) ==
LOC: RADMAMWWP 11:21
PROVIDERS: ATTEND Family Medicine
DX: Z12.31 Encounter for screening mammogram for malignant neoplasm of breast (principal); M81.0 Age-related osteoporosis without current pathological fracture; Z78.0 Asymptomatic menopausal state; Z80.3 Family history of malignant neoplasm of breast
CPT/HCPCS: 77063; 77067; 77080

== ENCOUNTER 2022-10-01 16:59 | Emergency (ER) | payer MEDICARE ==
[2022-10-01 17:05] LABS: Glucose,Whole Blood 134 mg/dL (70-110)
[2022-10-01 17:51] LABS: Glucose,Whole Blood 93 mg/dL (70-110)
[2022-10-01 18:20] LABS: Glucose,Whole Blood 103 mg/dL (70-110)
[2022-10-01 18:37] VITALS: TEMP 97.4
[2022-10-01 18:52] LABS: Anisocytosis Slight; Basophils # (A) 0.1 k/uL (0-0.2); Basophils % (A) 1 %; Eosinophils # (A) 0.6 k/uL (0-0.7); Eosinophils % (A) 7 %; HCT 32.8 % (34.0-46.0); HGB 10.7 gm/dL (11.4-16.0); Lymphocytes # (A) 1.2 k/uL (1.0-4.8); Lymphocytes % (A) 15 %; MCH 30.3 pg (25.0-35.0); MCHC 32.5 g/dL (31.0-37.0); MCV 93.3 fL (80.0-100.0); Mean Platelet Volume 8.6; Monocytes # (A) 0.6 k/uL (0-1.0); Monocytes % (A) 7 %; Neutrophils # (A) 5.2 k/uL (1.3-7.7); Neutrophils % (A) 67 %; Platelet Count 187 k/uL (150-450); RBC 3.52 m/uL (3.80-5.40); WBC 7.8 k/uL (3.8-10.6)
[2022-10-01 19:05] LABS: Glucose,Whole Blood 94 mg/dL (70-110)
[2022-10-01 19:11] LABS: Calcium 9.1 mg/dL (8.4-10.2); Potassium 3.8 mmol/L (3.5-5.1)
--- NOTE | 2022-10-01 20:21 | ED ---
Altered Mental Status HPI - General Chief Complaint: Altered Mental Status Stated Complaint: diabetic issue Time Seen by Provider: 10/01/22 17:27 Source: EMS Mode of arrival: EMS Limitations: no limitations - History of Present Illness Initial Comments: This patient is a 77-year-old woman who is brought to have evaluation for suspected hypoglycemia. The patient recalls that she had taken her insulin in preparation to have her evening meal. She states she was then delayed before she could have the meal. It is reported that she became very confused and disoriented. EMS was called to the scene and found the patient to have hypoglycemia and they administered dextrose. The patient states that she feels almost back at her baseline now. She does complain of some generalized fatigue. She is not having pain, dyspnea, fever or chills. Remainder of review of systems unremarkable MD Complaint: altered mental status, confusion -: minutes(s) Severity: moderate Context: diabetes Associated Symptoms: denies other symptoms Treatments Prior to Arrival: glucose - Related Data Home Medications Medication Instructions Recorded Confirmed Cinacalcet [Sensipar] 30 mg PO MOWEFR 12/01/16 07/18/21 Spironolactone [Aldactone] 12.5 mg PO DAILY 12/01/16 07/18/21 allopurinoL [Zyloprim] 300 mg PO DAILY 11/02/17 07/18/21 INSULIN LISPRO (humaLOG) [humaLOG] 16 units SQ AC-TID 01/17/19 07/18/21 Insulin Glargine,Hum.rec.anlog 30 unit SQ HS 06/19/20 07/18/21 [Basaglar Kwikpen U-100] carvediloL [Coreg] 6.25 mg PO BID 06/19/20 07/18/21 Rosuvastatin [Crestor] 20 mg PO DAILY 01/28/21 07/18/21 Furosemide [Lasix] 40 mg PO AC-SUPPER 02/27/21 07/18/21 Ferrous Sulfate [Iron (65 MG 325 mg PO DAILY 07/18/21 07/18/21 Elemental)] Magnebind 300mg 1 tab PO AC-LUNCH 07/18/21 07/18/21 Midodrine [ProAmatine] 5 mg PO TID PRN 07/18/21 07/18/21 Previous Rx's Medication Instructions Recorded Acetaminophen Tab [Tylenol] 650 mg PO Q6HR PRN tab 07/22/21 cefUROXime axetiL [Ceftin] 500 mg PO BID 3 Days #6 tab 07/22/21 Allergies Allergy/AdvReac Type Severity Reaction Status Date / Time adhesive Allergy Rash/Hives Verified 07/18/21 10:16 codeine Allergy Rash/Hives Verified 07/18/21 10:16 erythromycin base Allergy Rash/Hives Verified 07/18/21 10:16 [Erythromycin Base] Penicillins Allergy Swelling Verified 07/18/21 10:16 Review of Systems ROS Statement: Those systems with pertinent positive or pertinent negative responses have been documented in the HPI. ROS Other: All systems not noted in ROS Statement are negative. Constitutional: Denies: fever, chills, weakness Eyes: Denies: vision change Respiratory: Denies: cough, dyspnea Cardiovascular: Denies: chest pain, syncope Gastrointestinal: Denies: abdominal pain, vomiting, diarrhea Genitourinary: Denies: dysuria, hematuria Musculoskeletal: Denies: back pain Skin: Denies: rash Neurological: Reports: as per HPI, confusion. Denies: headache, weakness, numbness Past Medical History Past Medical History: CVA/TIA, Diabetes Mellitus, Hyperlipidemia, Hypertension, Osteoarthritis (OA), Pneumonia, Renal Disease Additional Past Medical History / Comment(s): Had CVA in her 30's. Osteopenia. Type II diabetes. Chronic kidney disease(looking into renal transplant). 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 Past GENERAL ACTIVITIES THERAPIST history: she has no history of STDs. Known grade 2 rectocele. hemodialysis History of Any Multi-Drug Resistant Organisms: None Reported Past Surgical History: Adenoidectomy, Appendectomy, Tonsillectomy Additional Past Surgical History / Comment(s): fatty tumor removed; hiatal hernia repair. Had a colonoscopy 2013. Left antecubital fistula placement for possible dialysis. Fistula Revision - left arm. Bilateral knees - gel insertion Past Anesthesia/Blood Transfusion Reactions: No Reported Reaction Past Psychological History: No Psychological Hx Reported Smoking Status: Never smoker Past Alcohol Use History: None Reported Past Drug Use History: None Reported - Past Family History Mother Family Medical History: Cancer Additional Family Medical History / Comment(s): Breast cancer. Grandmother had diabetes. General Exam Limitations: no limitations General appearance: alert, in no apparent distress Head exam: Present: atraumatic, normocephalic Eye exam: Present: normal appearance. Absent: scleral icterus, conjunctival injection Neck exam: Present: normal inspection, full ROM Respiratory exam: Present: normal lung sounds bilaterally. Absent: respiratory distress, wheezes, rales, rhonchi, stridor Cardiovascular Exam: Present: regular rate, normal rhythm, normal heart sounds. Absent: systolic murmur, diastolic murmur, rubs, gallop GI/Abdominal exam: Present: soft. Absent: distended, tenderness, guarding, rebound, rigid, mass Extremities exam: Present: normal inspection, normal capillary refill. Absent: pedal edema, calf tenderness Back exam: Present: normal inspection. Absent: CVA tenderness (R), CVA tenderness (L) Neurological exam: Present: alert Skin exam: Present: warm, dry, intact, normal color. Absent: rash Course Vital Signs 10/01/22 10/01/22 10/01/22 17:03 17:45 19:05 Temperature 97.4 F L Pulse Rate 62 63 58 L Respiratory 18 18 18 Rate Blood Pressure 176/56 187/78 180/71 O2 Sat by Pulse 98 94 L 95 Oximetry 10/01/22 20:43 Temperature Pulse Rate 67 Respiratory 16 Rate Blood Pressure 177/69 O2 Sat by Pulse 99 Oximetry Medical Decision Making - Medical Decision Making This patient is 77-year-old woman who developed altered mental status and was found to have hypoglycemia. The patient did receive dextrose. Symptoms resolved prior to arrival here. She has had multiple Accu-Cheks with stable what sugar. She did tolerate oral intake. Appropriate further care and follow- up discussed. Was pt. sent in by a medical professional or institution (, PA, ASSOCIATE PROFESSOR OF COUNSELING, urgent care, hospital, or usp...) When possible be specific @ -[No] Did you speak to anyone other than the patient for history (EMS, parent, family, police, friend...)? What history was obtained from this source @ -[EMS and patient's son Did you review nursing and triage notes (agree or disagree)? Why? @ -[I reviewed and agree with nursing and triage notes] Were old charts reviewed (outside hosp., previous admission, EMS record, old EKG, old radiological studies, urgent care reports/EKG's, usp records)? Report findings @ -[No old charts were reviewed] Differential Diagnosis (chest pain, altered mental status, abdominal pain women, abdominal pain men, vaginal bleeding, weakness, fever, dyspnea, syncope, hea dache, dizziness, GI bleed, back pain, seizure, CVA, palpatations, mental health, musculoskeletal)? @ -[The differential diagnosis of the patient's hypoglycemia includes error and medication administration, prolonged delay between taking medication and going to eat, infection, other stress resulting in hypoglycemia EKG interpreted by me (3pts min.). @ -[ X-rays interpreted by me (1pt min.). @ -[None done] CT interpreted by me (1pt min.). @ -[None done] U/S interpreted by me (1pt. min.). @ -[None done] What testing was considered but not performed or refused? (CT, X-rays, U/S, labs)? Why? @ -[None] What meds were considered but not given or refused? Why? @ -[None] Did you discuss the management of the patient with other professionals (professionals i.e. , PA, ASSOCIATE PROFESSOR OF COUNSELING, lab, RT, psych nurse, director social welfare, bounty hunter, teacher, fire prevention officer, case management specialist)? Give summary @ -[No] Was smoking cessation discussed for >3mins.? @ -[No] Was critical care preformed (if so, how long)? @ -[No] Were there social determinants of health that impacted care today? How? (Homelessness, low income, unemployed, alcoholism, drug addiction, transportation, low edu. Level, literacy, decrease access to med. care, senior living, rehab)? @ -[No] Was there de-escalation of care discussed even if they declined (Discuss DNR or withdrawal of care, Hospice)? DNR status @ -[No] What co-morbidities impacted this encounter? (DM, HTN, Smoking, COPD, CAD, Cancer, CVA, ARF, Chemo, Hep., AIDS, mental health diagnosis, sleep apnea, morbid obesity)? @ -[Diabetes Was patient admitted / discharged? Hospital course, mention meds given and route, prescriptions, significant lab abnormalities, going to OR and other pertinent info. @ -[Discharged Undiagnosed new problem with uncertain prognosis? @ -[No] Drug Therapy requiring intensive monitoring for toxicity (Heparin, Nitro, Insulin, Cardizem)? @ -[No] Were any procedures done? @ -[No] Diagnosis/symptom? @ -[Acute hypoglycemia, resolved now Acute, or Chronic, or Acute on Chronic? @ -[default] Uncomplicated (without systemic symptoms) or Complicated (systemic symptoms)? @ -[Complicated Side effects of treatment? @ -[No] Exacerbation, Progression, or Severe Exacerbation? @ -[No] Poses a threat to life or bodily function? How? (Chest pain, USA, ND, pneumonia, PE, COPD, DKA, ARF, appy, cholecystitis, CVA, Diverticulitis, Homicidal, Suici erik, threat to staff... and all critical care pts) @ -[Yes, but resolved - Lab Data Result diagrams: 10/01/22 18:29 10/01/22 18:29 Lab Results 10/01/22 10/01/22 10/01/22 Range/Units 17:04 17:40 18:17 WBC (3.8-10.6) k/uL RBC (3.80-5.40) m/uL Hgb (11.4-16.0) gm/dL Hct (34.0-46.0) % MCV (80.0-100.0) fL MCH (25.0-35.0) pg MCHC (31.0-37.0) g/dL RDW (11.5-15.5) % Plt Count (150-450) k/uL MPV Neutrophils % % Lymphocytes % % Monocytes % % Eosinophils % % Basophils % % Neutrophils # (1.3-7.7) k/uL Lymphocytes # (1.0-4.8) k/uL Monocytes # (0-1.0) k/uL Eosinophils # (0-0.7) k/uL Basophils # (0-0.2) k/uL Anisocytosis Sodium (137-145) mmol/L Potassium (3.5-5.1) mmol/L Chloride (98-107) mmol/L Carbon Dioxide (22-30) mmol/L Anion Gap mmol/L BUN (7-17) mg/dL Creatinine (0.52-1.04) mg/dL Est GFR (CKD-EPI)AfAm (>60 ml/min/1.73 sqM) Est GFR (CKD-EPI)NonAf (>60 ml/min/1.73 sqM) Glucose (74-99) mg/dL POC Glucose (mg/dL) 134 H 93 103 (70-110) mg/dL POC Glu Pallet Assembler ID Bebeto Armas Joshua Jones, Joshua Calcium (8.4-10.2) mg/dL 10/01/22 10/01/22 10/01/22 Range/Units 18:29 18:29 19:03 WBC 7.8 (3.8-10.6) k/uL RBC 3.52 L (3.80-5.40) m/uL Hgb 10.7 L (11.4-16.0) gm/dL Hct 32.8 L (34.0-46.0) % MCV 93.3 (80.0-100.0) fL MCH 30.3 (25.0-35.0) pg MCHC 32.5 (31.0-37.0) g/dL RDW 16.0 H (11.5-15.5) % Plt Count 187 (150-450) k/uL MPV 8.6 Neutrophils % 67 % Lymphocytes % 15 % Monocytes % 7 % Eosinophils % 7 % Basophils % 1 % Neutrophils # 5.2 (1.3-7.7) k/uL Lymphocytes # 1.2 (1.0-4.8) k/uL Monocytes # 0.6 (0-1.0) k/uL Eosinophils # 0.6 (0-0.7) k/uL Basophils # 0.1 (0-0.2) k/uL Anisocytosis Slight Sodium 136 L (137-145) mmol/L Potassium 3.8 (3.5-5.1) mmol/L Chloride 95 L (98-107) mmol/L Carbon Dioxide 31 H (22-30) mmol/L Anion Gap 10 mmol/L BUN 28 H (7-17) mg/dL Creatinine 2.67 H (0.52-1.04) mg/dL Est GFR (CKD-EPI)AfAm 19 (>60 ml/min/1.73 sqM) Est GFR (CKD-EPI)NonAf 17 (>60 ml/min/1.73 sqM) Glucose 79 (74-99) mg/dL POC Glucose (mg/dL) 94 (70-110) mg/dL POC Glu Pallet Assembler ID Barrios, Rivera Calcium 9.1 (8.4-10.2) mg/dL 10/01/22 10/01/22 Range/Units 20:25 21:16 WBC (3.8-10.6) k/uL RBC (3.80-5.40) m/uL Hgb (11.4-16.0) gm/dL Hct (34.0-46.0) % MCV (80.0-100.0) fL MCH (25.0-35.0) pg MCHC (31.0-37.0) g/dL RDW (11.5-15.5) % Plt Count (150-450) k/uL MPV Neutrophils % % Lymphocytes % % Monocytes % % Eosinophils % % Basophils % % Neutrophils # (1.3-7.7) k/uL Lymphocytes # (1.0-4.8) k/uL Monocytes # (0-1.0) k/uL Eosinophils # (0-0.7) k/uL Basophils # (0-0.2) k/uL Anisocytosis Sodium (137-145) mmol/L Potassium (3.5-5.1) mmol/L Chloride (98-107) mmol/L Carbon Dioxide (22-30) mmol/L Anion Gap mmol/L BUN (7-17) mg/dL Creatinine (0.52-1.04) mg/dL Est GFR (CKD-EPI)AfAm (>60 ml/min/1.73 sqM) Est GFR (CKD-EPI)NonAf (>60 ml/min/1.73 sqM) Glucose (74-99) mg/dL POC Glucose (mg/dL) 125 H 162 H (70-110) mg/dL POC Glu Pallet Assembler LUIS Ospina Apolinarlawanda Ospina Apolinar Calcium (8.4-10.2) mg/dL Disposition Clinical Impression: Hypoglycemia Disposition: HOME SELF-CARE Condition: Good Instructions (If sedation given, give patient instructions): Hypoglycemia in a Person with Diabetes (ED) Is patient prescribed a controlled substance at d/c from ED?: No Referrals: Isacc Valdez MD [Primary Care Provider] - 1-2 days
[2022-10-01 20:27] LABS: Glucose,Whole Blood 125 mg/dL (70-110)
[2022-10-01 20:44] VITALS: BP 177/69; PULSE 67; RESP 16
[2022-10-01] MEDS ORDERED: ONDANSETRON 4 MG/2 ML VIAL IVP PRN (20:53)
[2022-10-01] MEDS ORDERED: PANTOPRAZOLE 40 MG/10 ML VIAL IVP SCH (21:00)
[2022-10-01 21:18] LABS: Glucose,Whole Blood 162 mg/dL (70-110)
== END 2022-10-01 21:34 | disposition home or self-care (01) ==
LOC: EC 16:59
DX: E11.649 Type 2 diabetes mellitus with hypoglycemia without coma (principal); I12.9 Hypertensive chronic kidney disease with stage 1 through stage 4 chronic kidney disease, or unspecified chronic kidney disease; N18.9 Chronic kidney disease, unspecified; E11.22 Type 2 diabetes mellitus with diabetic chronic kidney disease; E78.5 Hyperlipidemia, unspecified; M19.90 Unspecified osteoarthritis, unspecified site; Z86.73 Personal history of transient ischemic attack (TIA), and cerebral infarction without residual deficits; Z88.5 Allergy status to narcotic agent; Z88.0 Allergy status to penicillin; Z88.1 Allergy status to other antibiotic agents; Z91.048 Other nonmedicinal substance allergy status; Z79.4 Long term (current) use of insulin; Z79.899 Other long term (current) drug therapy
CPT/HCPCS: 36415; 80048; 85025; 99285

== ENCOUNTER 2023-05-14 19:14 | Emergency (ER) | payer MEDICARE ==
[2023-05-14 19:29] LABS: Glucose,Whole Blood 84 mg/dL (70-110)
[2023-05-14 19:43] VITALS: RESP 18
--- NOTE | 2023-05-14 20:45 | XR ---
EXAMINATION TYPE: XR chest 2V DATE OF EXAM: 05/14/2023 8:37 PM CLINICAL INDICATION:Female, 77 years old with history of altered mental status; [facility] COMPARISON: Chest radiographs from on 07/18/2021 TECHNIQUE: XR chest 2V Frontal and lateral views of the chest. FINDINGS: Lungs/Pleura: There is no evidence of pleural effusion, focal consolidation, or pneumothorax. Pulmonary vascularity: Pulmonary vascular congestion. Heart/mediastinum: Cardiomediastinal silhouette is enlarged and stable. Atherosclerotic calcificatio ns are seen in the aorta. Musculoskeletal: No acute osseous pathology. Other findings: None IMPRESSION: Cardiomegaly and mild pulmonary vascular congestion. Correlate with BNP for congestive heart failure.
[2023-05-14 20:52] LABS: Anisocytosis Slight; Basophils % (A) 1 %; Eosinophils # (A) 0.5 k/uL (0-0.7); Eosinophils % (A) 8 %; HCT 33.6 % (34.0-46.0); Hypochromasia Slight; Lymphocytes # (A) 1.7 k/uL (1.0-4.8); Lymphocytes % (A) 25 %; MCH 31.6 pg (25.0-35.0); MCHC 32.7 g/dL (31.0-37.0); MCV 96.7 fL (80.0-100.0); Macrocytosis Slight; Mean Platelet Volume 8.1; Monocytes # (A) 0.6 k/uL (0-1.0); Monocytes % (A) 8 %; Neutrophils # (A) 3.7 k/uL (1.3-7.7); Neutrophils % (A) 55 %; Platelet Count 243 k/uL (150-450); RBC 3.47 m/uL (3.80-5.40); RDW 17.8 % (11.5-15.5); WBC 6.7 k/uL (3.8-10.6)
[2023-05-14 21:03] LABS: ALT 11 U/L (4-34); AST 22 U/L (14-36); African American GFR (CKD) 16 (>60 ml/min/1.73 sqM); Albumin 4.5 g/dL (3.5-5.0); Alkaline Phosphatase 96 U/L (38-126); Anion Gap 16 mmol/L; Blood Urea Nitrogen 28 mg/dL (7-17); Calcium 9.5 mg/dL (8.4-10.2); Carbon Dioxide 28 mmol/L (22-30); Chloride 95 mmol/L (98-107); Glucose 86 mg/dL (74-99); Non-African American GFR(CKD) 14 (>60 ml/min/1.73 sqM); Potassium 4.1 mmol/L (3.5-5.1); Sodium 139 mmol/L (137-145); Total Bilirubin 0.5 mg/dL (0.2-1.3); Total Protein 7.6 g/dL (6.3-8.2)
[2023-05-14 21:37] LABS: INR 0.9 (<1.2); Partial Thromboplastin Time 23.9 sec (22.0-30.0); Prothrombin Time 10.2 sec (10.0-12.5)
[2023-05-14 22:27] LABS: Appearance,Urine Clear (Clear); Bilirubin,Urine Negative (Negative); Blood,Urine Negative (Negative); Color,Urine Yellow; Glucose,Urine (UA) Negative (Negative); Hyaline Casts,Urine 3 /lpf (0-2); Ketones,Urine Negative (Negative); Leukocyte Esterase,Urine Trace (Negative); Mucus,Urine Rare /hpf; Nitrite,Urine Negative (Negative); PH, Urine 5.5 (5.0-8.0); Protein,Urine 2+ (Negative); RBC,Urine 1 /hpf (0-5); Squamous Epithelial Cell,Urine 1 /hpf (0-4); Urobilinogen,Urine <2.0 mg/dL (<2.0); WBC,Urine 1 /hpf (0-5)
--- NOTE | 2023-05-14 22:40 | ED ---
Altered Mental Status HPI - General Chief Complaint: Altered Mental Status Stated Complaint: Hypoglycemia Time Seen by Provider: 05/14/23 20:10 Source: patient, EMS Mode of arrival: EMS Limitations: no limitations - History of Present Illness Initial Comments: 77-year-old female presenting with chief complaint of an episode of altered mental status. Patient lives independently at [facility], when the patient came down to dinner in her motorized scooter she was running into the wall and tables, worker states that she was very confused. When EMS arrived they reported a blood sugar of 46. Patient did give her insulin before coming down to dinner. She was given glucose tablets by EMS and upon arriving at our ER glucose is 84. Her sons present at bedside states that she appears at baseline at this time. She denies chest pain, difficulty breathing, abdominal pain, nausea, vomiting, dizziness, vision or hearing changes, numbness, tingling, weakness. Patient is on dialysis, receives dialysis Wednesday and Wednesday, while she was at dialysis today she did not eat anything but states that she did have some hard candy. - Related Data Home Medications Medication Instructions Recorded Confirmed Cinacalcet [Sensipar] 30 mg PO MOWEFR 12/01/16 07/18/21 Spironolactone [Aldactone] 12.5 mg PO DAILY 12/01/16 07/18/21 allopurinoL [Zyloprim] 300 mg PO DAILY 11/02/17 07/18/21 INSULIN LISPRO (humaLOG) [humaLOG] 16 units SQ AC-TID 01/17/19 07/18/21 Insulin Glargine,Hum.rec.anlog 30 unit SQ HS 06/19/20 07/18/21 [Basaglar Kwikpen U-100] carvediloL [Coreg] 6.25 mg PO BID 06/19/20 07/18/21 Rosuvastatin [Crestor] 20 mg PO DAILY 01/28/21 07/18/21 Furosemide [Lasix] 40 mg PO AC-SUPPER 02/27/21 07/18/21 Ferrous Sulfate [Iron (65 MG 325 mg PO DAILY 07/18/21 07/18/21 Elemental)] Magnebind 300mg 1 tab PO AC-LUNCH 07/18/21 07/18/21 Midodrine [ProAmatine] 5 mg PO TID PRN 07/18/21 07/18/21 Previous Rx's Medication Instructions Recorded Acetaminophen Tab [Tylenol] 650 mg PO Q6HR PRN tab 07/22/21 cefUROXime axetiL [Ceftin] 500 mg PO BID 3 Days #6 tab 07/22/21 Allergies Allergy/AdvReac Type Severity Reaction Status Date / Time adhesive Allergy Rash/Hives Verified 05/14/23 19:30 codeine Allergy Rash/Hives Verified 05/14/23 19:30 erythromycin base Allergy Rash/Hives Verified 05/14/23 19:30 [Erythromycin Base] Penicillins Allergy Swelling Verified 05/14/23 19:30 Review of Systems ROS Statement: Those systems with pertinent positive or pertinent negative responses have been documented in the HPI. ROS Other: All systems not noted in ROS Statement are negative. 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 Osteopenia. Type II diabetes. Chronic kidney disease(looking into renal transplant). 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 Known grade 2 rectocele. hemodialysis History of Any Multi-Drug Resistant Organisms: None Reported Past Surgical History: Adenoidectomy, Appendectomy, Tonsillectomy Additional Past Surgical History / Comment(s): fatty tumor removed; hiatal hernia repair. Had a colonoscopy 2013. Left antecubital fistula placement for possible dialysis. Fistula Revision - left arm. Bilateral knees - gel insertion Past Anesthesia/Blood Transfusion Reactions: No Reported Reaction Past Psychological History: No Psychological Hx Reported Smoking Status: Never smoker Past Alcohol Use History: None Reported Past Drug Use History: None Reported - Past Family History Mother Family Medical History: Cancer Additional Family Medical History / Comment(s): Breast cancer. Grandmother had diabetes. General Exam Limitations: no limitations General appearance: alert, in no apparent distress Head exam: Present: atraumatic, normocephalic, normal inspection Eye exam: Present: normal appearance, EOMI Neck exam: Present: normal inspection, full ROM Respiratory exam: Present: normal lung sounds bilaterally. Absent: respiratory distress, wheezes, rales, rhonchi, stridor Cardiovascular Exam: Present: regular rate, normal rhythm, normal heart sounds. Absent: systolic murmur, diastolic murmur, rubs, gallop, clicks Neurological exam: Present: alert, oriented X3 Expanded Patient oriented to: Present: person, place, time Speech: Present: fluid speech Cranial nerves: EOM's Intact: Normal Eye Response: (4) open spontaneously Motor Response: (6) obeys commands Verbal Response: (5) oriented Kim Total: 15 Psychiatric exam: Present: normal affect, normal mood Skin exam: Present: warm, dry, intact, normal color. Absent: rash Course Vital Signs 05/14/23 05/14/23 05/14/23 19:23 21:27 22:45 Temperature 98 F 98.1 F Pulse Rate 78 71 72 Respiratory 18 18 18 Rate Blood Pressure 125/47 117/41 132/48 O2 Sat by Pulse 99 100 97 Oximetry Medical Decision Making - Medical Decision Making Was pt. sent in by a medical professional or institution (, PA, FLIGHT SECURITY SPECIALIST, urgent ca re, hospital, or intermediate...) When possible be specific @ -No Did you speak to anyone other than the patient for history (EMS, parent, family, police, friend...)? What history was obtained from this source @ -Family at bedside Did you review nursing and triage notes (agree or disagree)? Why? @ -I reviewed and agree with nursing and triage notes Were old charts reviewed (outside hosp., previous admission, EMS record, old EKG, old radiological studies, urgent care reports/EKG's, intermediate records)? Report findings @ -No old charts were reviewed Differential Diagnosis (chest pain, altered mental status, abdominal pain women, abdominal pain men, vaginal bleeding, weakness, fever, dyspnea, syncope, headache, dizziness, GI bleed, back pain, seizure, CVA, palpatations, mental health, musculoskeletal)? @ -MDM Differential Altered Mental Status: Hypoglycemia, DKA, hypercapnia, ETOH, overdose, CO poisoning, trauma, myxedema coma, HTN encephalopathy, infection, encephalitis, psychosis, intercranial hemorrhage, hepatic encephalopathy, meningitis, CVA this is not meant to be an all-inclusive list EKG interpreted by me (3pts min.). @ -Sinus rhythm ventricular rate 68. HI interval 158. QRS 124. QTc 40. QTc 457. Left axis deviation. X-rays interpreted by me (1pt min.). @ -Cardiomegaly and mild pulmonary vascular congestion. Correlate with BNP for congestive heart failure CT interpreted by me (1pt min.). @ -None done U/S interpreted by me (1pt. min.). @ -None done What testing was considered but not performed or refused? (CT, X-rays, U/S, labs)? Why? @ -None What meds were considered but not given or refused? Why? @ -None Did you discuss the management of the patient with other professionals (professionals i.e. DrCecy, PA, FLIGHT SECURITY SPECIALIST, lab, RT, psych nurse, social work associate, quality controller, teacher, retirement officer, rn case manager hospice)? Give summary @ -No Was smoking cessation discussed for >3mins.? @ -No Was critical care preformed (if so, how long)? @ -No Were there social determinants of health that impacted care today? How? (Homelessness, low income, unemployed, alcoholism, drug addiction, transportation, low edu. Level, literacy, decrease access to med. care, long-term, rehab)? @ -No Was there de-escalation of care discussed even if they declined (Discuss DNR or withdrawal of care, Hospice)? DNR status @ -No What co-morbidities impacted this encounter? (DM, HTN, Smoking, COPD, CAD, Cancer, CVA, ARF, Chemo, Hep., AIDS, mental health diagnosis, sleep apnea, morbid obesity)? @ -None Was patient admitted / discharged? Hospital course, mention meds given and route, prescriptions, significant lab abnormalities, going to OR and other [facility] info. @ -77-year-old female presenting with chief complaint of episode of altered mental status. She was found to be hypoglycemic by EMS and per glucose winsome. Physical exam is unremarkable. Patient is a and O 3 at this time. Lab work requires no action. While chest x-ray does show signs of CHF, clinically patient does not match this picture she is not having any chest pain or difficulty breathing, and vital signs are WNL. Patient is educated on hypoglycemia. She is instructed to not take her insulin until sitting at the dinner table with food in front of her. Follow-up with PCP. Report back to ER with any new or worsening symptoms. Discussed return parameters and answered all questions. Patient conveyed verbal understanding and agreed to the plan. I discussed this case in detail with my attending Dr. Blount Undiagnosed new problem with uncertain prognosis? @ -No Drug Therapy requiring intensive monitoring for toxicity (Heparin, Nitro, Insulin, Cardizem)? @ -No Were any procedures done? @ -No Diagnosis/symptom? @ -Hypoglycemia Acute, or Chronic, or Acute on Chronic? @ -Acute Uncomplicated (without systemic symptoms) or Complicated (systemic symptoms)? @ -complicated Side effects of treatment? @ -No Exacerbation, Progression, or Severe Exacerbation? @ -No Poses a threat to life or bodily function? How? (Chest pain, [place], [place], pneumonia, PE, COPD, DKA, ARF, appy, cholecystitis, CVA, Diverticulitis, Homicidal, Suicidal, threat to staff... and all critical care pts) @ -Continued hypoglycemia does pose a threat, however patient has remained normoglycemic throughout her hospital course, she is educated on proper insulin use to prevent hypoglycemia - Lab Data Result diagrams: 05/14/23 20:22 05/14/23 20:22 Lab Results 05/14/23 05/14/23 05/14/23 Range/Units 19:22 20:22 20:22 WBC 6.7 (3.8-10.6) k/uL RBC 3.47 L (3.80-5.40) m/uL Hgb 11.0 L (11.4-16.0) gm/dL Hct 33.6 L (34.0-46.0) % MCV 96.7 (80.0-100.0) fL MCH 31.6 (25.0-35.0) pg MCHC 32.7 (31.0-37.0) g/dL RDW 17.8 H (11.5-15.5) % Plt Count 243 (150-450) k/uL MPV 8.1 Neutrophils % 55 % Lymphocytes % 25 % Monocytes % 8 % Eosinophils % 8 % Basophils % 1 % Neutrophils # 3.7 (1.3-7.7) k/uL Lymphocytes # 1.7 (1.0-4.8) k/uL Monocytes # 0.6 (0-1.0) k/uL Eosinophils # 0.5 (0-0.7) k/uL Basophils # 0.0 (0-0.2) k/uL Hypochromasia Slight Anisocytosis Slight Macrocytosis Slight PT 10.2 (10.0-12.5) sec INR 0.9 (<1.2) APTT 23.9 (22.0-30.0) sec Sodium (137-145) mmol/L Potassium (3.5-5.1) mmol/L Chloride (98-107) mmol/L Carbon Dioxide (22-30) mmol/L Anion Gap mmol/L BUN (7-17) mg/dL Creatinine (0.52-1.04) mg/dL Est GFR (CKD-EPI)AfAm (>60 ml/min/1.73 sqM) Est GFR (CKD-EPI)NonAf (>60 ml/min/1.73 sqM) Glucose (74-99) mg/dL POC Glucose (mg/dL) 84 (70-110) mg/dL POC Glu Suspension Cord Tier ID Olga Garcia Calcium (8.4-10.2) mg/dL Total Bilirubin (0.2-1.3) mg/dL AST (14-36) U/L ALT (4-34) U/L Alkaline Phosphatase (38-126) U/L Total Protein (6.3-8.2) g/dL Albumin (3.5-5.0) g/dL Urine Color Urine Appearance (Clear) Urine pH (5.0-8.0) Ur Specific [place] (1.001-1.035) Urine Protein (Negative) Urine Glucose (UA) (Negative) Urine Ketones (Negative) Urine Blood (Negative) Urine Nitrite (Negative) Urine Bilirubin (Negative) Urine Urobilinogen (<2.0) mg/dL Ur Leukocyte Esterase (Negative) Urine RBC (0-5) /hpf Urine WBC (0-5) /hpf Ur Squamous Epith Cells (0-4) /hpf Hyaline Casts (0-2) /lpf Urine Mucus (None) /hpf 05/14/23 05/14/23 Range/Units 20:22 22:11 WBC (3.8-10.6) k/uL RBC (3.80-5.40) m/uL Hgb (11.4-16.0) gm/dL Hct (34.0-46.0) % MCV (80.0-100.0) fL MCH (25.0-35.0) pg MCHC (31.0-37.0) g/dL RDW (11.5-15.5) % Plt Count (150-450) k/uL MPV Neutrophils % % Lymphocytes % % Monocytes % % Eosinophils % % Basophils % % Neutrophils # (1.3-7.7) k/uL Lymphocytes # (1.0-4.8) k/uL Monocytes # (0-1.0) k/uL Eosinophils # (0-0.7) k/uL Basophils # (0-0.2) k/uL Hypochromasia Anisocytosis Macrocytosis PT (10.0-12.5) sec INR (<1.2) APTT (22.0-30.0) sec Sodium 139 (137-145) mmol/L Potassium 4.1 (3.5-5.1) mmol/L Chloride 95 L (98-107) mmol/L Carbon Dioxide 28 (22-30) mmol/L Anion Gap 16 mmol/L BUN 28 H (7-17) mg/dL Creatinine 3.19 H (0.52-1.04) mg/dL Est GFR (CKD-EPI)AfAm 16 (>60 ml/min/1.73 sqM) Est GFR (CKD-EPI)NonAf 14 (>60 ml/min/1.73 sqM) Glucose 86 (74-99) mg/dL POC Glucose (mg/dL) (70-110) mg/dL POC Glu Suspension Cord Tier ID Calcium 9.5 (8.4-10.2) mg/dL Total Bilirubin 0.5 (0.2-1.3) mg/dL AST 22 (14-36) U/L ALT 11 (4-34) U/L Alkaline Phosphatase 96 (38-126) U/L Total Protein 7.6 (6.3-8.2) g/dL Albumin 4.5 (3.5-5.0) g/dL Urine Color Yellow Urine Appearance Clear (Clear) Urine pH 5.5 (5.0-8.0) Ur Specific [place] 1.020 (1.001-1.035) Urine Protein 2+ H (Negative) Urine Glucose (UA) Negative (Negative) Urine Ketones Negative (Negative) Urine Blood Negative (Negative) Urine Nitrite Negative (Negative) Urine Bilirubin Negative (Negative) Urine Urobilinogen <2.0 (<2.0) mg/dL Ur Leukocyte Esterase Trace H (Negative) Urine RBC 1 (0-5) /hpf Urine WBC 1 (0-5) /hpf Ur Squamous Epith Cells 1 (0-4) /hpf Hyaline Casts 3 H (0-2) /lpf Urine Mucus Rare H (None) /hpf Disposition Clinical Impression: Hypoglycemia Disposition: HOME SELF-CARE Condition: Fair Instructions (If sedation given, give patient instructions): Hypoglycemia in a Person with Diabetes (ED), Altered Mental Status (ED) Additional Instructions: Follow-up with PCP. Report back to ER with any new or worsening symptoms. Do not take your insulin until you are at the dinner table and have your food in front of you. Is patient prescribed a controlled substance at d/c from ED?: No Referrals: Isacc Valdez MD [Primary Care Provider] - 1-2 days Time of Disposition: 22:40
[2023-05-14 22:54] VITALS: BP 132/48; PULSE 72; TEMP 98.1
== END 2023-05-14 23:10 | disposition home or self-care (01) ==
LOC: EC 19:14
DX: E11.649 Type 2 diabetes mellitus with hypoglycemia without coma (principal); E11.22 Type 2 diabetes mellitus with diabetic chronic kidney disease; I13.2 Hypertensive heart and chronic kidney disease with heart failure and with stage 5 chronic kidney disease, or end stage renal disease; E78.5 Hyperlipidemia, unspecified; I50.9 Heart failure, unspecified; N18.6 End stage renal disease; Z99.2 Dependence on renal dialysis; Z79.4 Long term (current) use of insulin; Z79.899 Other long term (current) drug therapy; Z88.0 Allergy status to penicillin; Z88.5 Allergy status to narcotic agent; Z88.1 Allergy status to other antibiotic agents; Z91.09 Other allergy status, other than to drugs and biological substances
CPT/HCPCS: 36415; 71046; 80053; 81001; 85025; 85610; 85730; 93005; 99285

== ENCOUNTER → 2023-06-24 | Outpatient (CLI) | payer MEDICARE ==
--- NOTE | 2023-06-25 18:49 | MM ---
Reason for Exam: Screening (asymptomatic). Last screening mammogram was performed 12 month(s) ago. Patient History: Menarche at age 14. First Full-Term at age 21. Postmenopausal. Hormonal Contraceptives for 4 years from age 22 until age 26. Mother had breast cancer, age 63. Risk Values: Myriam 5 year model risk: 3.3%. NCI Lifetime model risk: 6.6%. Prior Study Comparison: 11/29/2018 Bilateral Screening Mammogram, [facility]. 06/19/2020 Bilateral Screening Mammogram, [facility]. 06/23/2022 Bilateral MG 3D screening mammo w/cad, [facility]. Tissue Density: There are scattered fibroglandular densities. Findings: Analyzed By CAD. There is no suspicious group of microcalcifications or new suspicious mass in either breast. Overall Assessment: Negative, BI-RAD 1 Management: Screening Mammogram of both breasts in 1 year. See note below in regards to patient's increased five-year Myriam score. Patient should continue monthly self-breast exams. A clinical breast exam by your physician is recommended on an annual basis. This exam should not preclude additional follow-up of suspicious palpable abnormalities. Note on Myriam scores and lifetime risk: 1. A Myriam score greater than 3% is considered moderate risk. If this is the case, consider specialist referral to assess eligibility for a risk reducing agent. 2. If overall lifetime risk for the development of breast cancer is 20% or higher, the patient may qualify for future screening with alternating mammogram and breast MRI. Electronically signed and approved by: Sabino Curtis M.D. Radiologist
== END | disposition home or self-care (01) ==
LOC: RADMAMWWP 10:37
PROVIDERS: ATTEND Family Medicine
DX: Z12.31 Encounter for screening mammogram for malignant neoplasm of breast (principal); Z78.0 Asymptomatic menopausal state; Z80.3 Family history of malignant neoplasm of breast
CPT/HCPCS: 77063; 77067

== ENCOUNTER → 2024-06-27 | Outpatient (CLI) | payer MEDICARE ==
--- NOTE | 2024-06-27 11:24 | MM ---
Reason for Exam: Screening (asymptomatic). Last screening mammogram was performed 12 month(s) ago. Patient History: Menarche at age 14. First Full-Term at age 21. Postmenopausal. Hormonal Contraceptives for 4 years from age 22 until age 26. Mother had breast cancer, age 63. Risk Values: Myriam 5 year model risk: 3.2%. NCI Lifetime model risk: 6.2%. Prior Study Comparison: 06/19/2020 Bilateral Screening Mammogram, [facility]. 06/23/2022 Bilateral MG 3D screening mammo w/cad, [facility]. 06/24/2023 Bilateral MG 3D screening mammo w/cad, [facility]. Tissue Density: There are scattered areas of fibroglandular density. Findings: Analyzed By CAD. Right breast: There is no suspicious group of microcalcifications or new suspicious mass. Benign-appearing calcifications right breast. Left breast: There is no suspicious group of microcalcifications or new suspicious mass. Benign-appearing calcifications left breast. Overall Assessment: Benign, BI-RAD 2 Management: Screening Mammogram of both breasts in [address] [facility] will attempt to contact patient to return for supplemental views and ultrasound if indicated. Patient should continue monthly self-breast exams. A clinical breast exam by your physician is recommended on an annual basis. This exam should not preclude additional follow-up of suspicious palpable abnormalities. Note on Myriam scores and lifetime risk: 1. A Myriam score greater than 3% is considered moderate risk. If this is the case, consider specialist referral to assess eligibility for a risk reducing agent. 2. If overall lifetime risk for the development of breast cancer is 20% or higher, the patient may qualify for future screening with alternating mammogram and breast MRI. [facility], , 06/27/2024 11:20 AM. Electronically signed and approved by: Alex Munoz DO
--- NOTE | 2024-06-27 14:46 | BD ---
EXAMINATION TYPE: Axial Bone Density DATE OF EXAM: 06/27/2024 CLINICAL HISTORY: 79 years old Female. ICD-10 CODE: Z78.0 Asymptomatic , Additional History: Height: 5 ft Weight: 175 FRAX RISK QUESTIONS: Alcohol (3 or more units per day): no Family History (Parent hip fracture): no Glucocorticoids (More than 3mos): no (Ex: prednisone, prednisolone, methylprednisolone, dexamethasone, and hydrocortisone). History of Fracture in Adulthood: no Secondary Osteoporosis: 1. Type 1 Diabetes: type 2 2. Hyperthyroidism: no 3. Menopause before 45: no 4. Malnutrition: no 5. Chronic liver disease: no Rheumatoid Arthritis: no Current Tobacco Use: no RISK FACTORS HISTORY OF: Surgery to Spine/Hip(right/left)/Wrist (right/left): no MEDICATIONS: Thyroid Medications: none Osteoporosis Medications: none EXAM MEASUREMENTS: Bone mineral densitometry was performed using the Retrieve System. Bone mineral density as measured about the Lumbar spine is: ----- L1-L4(G/cm2): 0.918 T Score Values are as follows: ----- L1: -2.9 ----- L2: -2.5 ----- L3: -2.4 ----- L4: -1.2 ----- L1-L4: -2.2 Z Score Values are as follows: ----- L1: -1.7 ----- L2: -1.2 ----- L3: -1.1 ----- L4: 0.1 ----- L1-L4: -0.9 Bone mineral density has: increased 2.1 % since study of: 2021 Bone mineral density about the R hip (g/cm2): 0.613 Bone mineral density about the L hip (g/cm2): 0.675 T Score values are as follows: -----R Neck: -3.1 -----L Neck: -2.6 -----R Total: -3.0 -----L Total: -2.8 Z Score values are as follows: -----R Neck: -1.4 -----L Neck: -0.9 -----R Total: -1.5 -----L Total: -1.4 Bone mineral density has: increased 0.5 % since study of: 2021 FRAX%s: The graph provided illustrates a 21.7 % chance for a major osteoporotic fx and a 8.5 % chance for the hips probability for fx in 10 years time. IMPRESSION: Osteoporosis (T Score less than -2.5). There is increased fracture risk and therapy is usually indicated based on age. Re-Screen 1-2 years. NOTE: T-SCORE=SD OF THE YOUNG ADULT MEAN. [facility], , 06/27/2024 2:43 PM
== END | disposition home or self-care (01) ==
LOC: RADMAMWWP 10:08
PROVIDERS: ATTEND Family Medicine
DX: Z12.31 Encounter for screening mammogram for malignant neoplasm of breast (principal); Z78.0 Asymptomatic menopausal state; Z80.3 Family history of malignant neoplasm of breast; R92.323 Mammographic fibroglandular density, bilateral breasts; M81.8 Other osteoporosis without current pathological fracture
CPT/HCPCS: 77063; 77067; 77080

== ENCOUNTER 2024-09-21 08:55 | Emergency (ER) | payer MEDICARE ==
--- NOTE | 2024-09-21 09:06 | ED ---
General Adult HPI - General Chief complaint: Weakness Stated complaint: Weakness Time Seen by Provider: 09/21/24 08:55 Source: patient, EMS, RN notes reviewed, old records reviewed Mode of arrival: EMS Limitations: no limitations - History of Present Illness Initial comments: Patient is a 79-year-old female who presents from her independent living facility for weakness. States she felt woozy today while she was down at breakfast. Her normal medications this morning. Denies any chest pain, abdominal pain, nausea, vomiting. Endorses some mild diarrhea. Denies any significant shortness of breath, fevers, chills, cough. States she is due for dialysis tomorrow if she goes Wednesday, and has not missed any runs. History includes ESRD on hemodialysis but still makes urine, prior CVA/TIA, diabetes, hyperlipidemia, hypertension. Denies any falls or injuries. Is chronically wheelchair-bound. Presents for further evaluation at this time. - Related Data Home Medications Medication Instructions Recorded Confirmed Cinacalcet [Sensipar] 30 mg PO MOWEFR 12/01/16 07/18/21 Spironolactone [Aldactone] 12.5 mg PO DAILY 12/01/16 07/18/21 allopurinoL [Zyloprim] 300 mg PO DAILY 11/02/17 07/18/21 INSULIN LISPRO (humaLOG) [humaLOG] 16 units SQ AC-TID 01/17/19 07/18/21 Insulin Glargine,Hum.rec.anlog 30 unit SQ HS 06/19/20 07/18/21 [Basaglar Kwikpen U-100] carvediloL [Coreg] 6.25 mg PO BID 06/19/20 07/18/21 Rosuvastatin [Crestor] 20 mg PO DAILY 01/28/21 07/18/21 Furosemide [Lasix] 40 mg PO AC-SUPPER 02/27/21 07/18/21 Ferrous Sulfate [Iron (65 MG 325 mg PO DAILY 07/18/21 07/18/21 Elemental)] Magnebind 300mg 1 tab PO AC-LUNCH 07/18/21 07/18/21 Midodrine [ProAmatine] 5 mg PO TID PRN 07/18/21 07/18/21 Previous Rx's Medication Instructions Recorded Acetaminophen Tab [Tylenol] 650 mg PO Q6HR PRN tab 07/22/21 cefuroxime axetiL [Ceftin] 500 mg PO BID 3 Days #6 tab 07/22/21 Allergies Allergy/AdvReac Type Severity Reaction Status Date / Time adhesive Allergy Rash/Hives Verified 09/21/24 09:02 codeine Allergy Rash/Hives Verified 09/21/24 09:02 erythromycin base Allergy Rash/Hives Verified 09/21/24 09:02 [Erythromycin Base] Penicillins Allergy Swelling Verified 09/21/24 09:02 Review of Systems ROS Statement: Those systems with pertinent positive or pertinent negative responses have been documented in the HPI. Review of Systems: CONST: Denies fever EYES: Denies blurry vision ENT: Denies nasal congestion C/V: Denies Chest pain RESP: Denies shortness of breath GI: Denies abdominal pain : Denies dysuria SKIN: Denies rash. MSK: Denies joint pain. NEURO: Denies headache ROS Other: All systems not noted in ROS Statement are negative. 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 Osteopenia. Type II diabetes. Chronic kidney disease(looking into renal transplant). 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 Known grade 2 rectocele. hemodialysis History of Any Multi-Drug Resistant Organisms: None Reported Past Surgical History: Adenoidectomy, Appendectomy, Tonsillectomy Additional Past Surgical History / Comment(s): fatty tumor removed; hiatal hernia repair. Had a colonoscopy 2013. Left antecubital fistula placement for possible dialysis. Fistula Revision - left arm. Bilateral knees - gel insertion Past Anesthesia/Blood Transfusion Reactions: No Reported Reaction Past Psychological History: No Psychological Hx Reported Smoking Status: Never smoker Past Alcohol Use History: None Reported Past Drug Use History: None Reported - Past Family History Mother Family Medical History: Cancer Additional Family Medical History / Comment(s): Breast cancer. Grandmother had diabetes. General Exam - General Exam Comments Initial Comments: General: Appears in no acute distress. HEAD: Normal with no signs of head trauma. EYES: PERRLA, EOMI, conjunctiva normal, no discharge. ENT: Hearing grossly intact, normal oropharynx. RESPIRATORY: Clear breath sounds bilaterally. No wheezes, rales, or rhonchi. C/V: Regular rate and rhythm. S1 and S2 auscultated, no edema, peripheral pulses 2+ and intact throughout. Left upper extremity AV fistula has a palpable thrill and audible bruit. ABD: Abd is soft, nontender, nondistended EXT: Normal range of motion, no obvious deformity SKIN: No rashes or lesions observed on exposed skin. NEURO: Alert and oriented x 4. Cranial nerves II-XII intact. No focal sensory or strength deficits. GCS 15. Limitations: no limitations Course Vital Signs 09/21/24 09/21/24 09/21/24 08:57 09:05 10:30 Temperature 97.4 F L Pulse Rate 66 71 70 Respiratory 17 16 18 Rate Blood Pressure 131/47 123/45 145/48 O2 Sat by Pulse 93 L 93 L 94 L Oximetry 09/21/24 12:16 Temperature 98.0 F Pulse Rate 68 Respiratory 17 Rate Blood Pressure 142/62 O2 Sat by Pulse 96 Oximetry Medical Decision Making - Medical Decision Making Was pt. sent in by a medical professional or institution (, PA, MEDICAL PARASITOLOGIST, urgent care, hospital, or group home...) When possible be specific @ -Presents from her independent living facility for weakness Did you speak to anyone other than the patient for history (EMS, parent, family, police, friend...)? What history was obtained from this source @ -No Did you review nursing and triage notes (agree or disagree)? Why? @ -I reviewed and agree with nursing and triage notes Were old charts reviewed (outside hosp., previous admission, EMS record, old EKG, old radiological studies, urgent care reports/EKG's, group home records)? Report findings @ -No old charts were reviewed Differential Diagnosis (chest pain, altered mental status, abdominal pain women, abdominal pain men, vaginal bleeding, weakness, fever, dyspnea, syncope, headache, dizziness, GI bleed, back pain, seizure, CVA, palpatations, mental health, musculoskeletal)? @ -Differential Weakness: Hypoglycemia, shock, sepsis, hyponatremia, anemia, infection, UT, ETOH, adverse medicine reaction, overdose, stroke, this is not meant to be an all-inclusive list. EKG interpreted by me (3pts min.). @ -As above X-rays interpreted by me (1pt min.). @ -Chest x-ray revealed no obvious acute cardiopulmonary process. No evidence of volume overload. CT interpreted by me (1pt min.). @ -None done U/S interpreted by me (1pt. min.). @ -None done What testing was considered but not performed or refused? (CT, X-rays, U/S, labs)? Why? @ -None What meds were considered but not given or refused? Why? @ -None Did you discuss the management of the patient with other professionals (professionals i.e. , PA, MEDICAL PARASITOLOGIST, lab, RT, psych nurse, bilingual social worker, manager account management, teacher, u.s. revenue officer, caseworker)? Give summary @ -No Was smoking cessation discussed for >3mins.? @ -No Was critical care preformed (if so, how long)? @ -No Were there social determinants of health that impacted care today? How? (Homelessness, low income, unemployed, alcoholism, drug addiction, transportation, low edu. Level, literacy, decrease access to med. care, skilled nursing, rehab)? @ -No Was there de-escalation of care discussed even if they declined (Discuss DNR or withdrawal of care, Hospice)? DNR status @ -No What co-morbidities impacted this encounter? (DM, HTN, Smoking, COPD, CAD, Cancer, CVA, ARF, Chemo, Hep., AIDS, mental health diagnosis, sleep apnea, morbid obesity)? @ -None Was patient admitted / discharged? Hospital course, mention meds given and route, prescriptions, significant lab abnormalities, going to OR and other pertinent info. @ -Based on the patient's presentation and physical exam, presents to the ER complaining of weakness. Started this morning. Currently has no complaints other than feeling what she describes as "whoozy" which she describes as general weakness. He has no other acute complaints. Has not missed dialysis. Will obtain general weakness workup. Vitals are within acceptable limits. She was in agreement this plan. EKG shows no signs of acute ischemia.Chest x-ray unremarkable. Laboratory studies are remarkable for elevated BUN and creatinine in setting of ESRD. Urinalysis contaminated. Remainder the workup unremarkable. On reevaluation, vital signs are within acceptable limits. Patient is feeling improved. Her feelings from earlier are improved. She would like to go home. Updated family as well as her they were in agreement this plan. Recommend she follow-up with her dialysis appointment tomorrow and they were in agreement this plan. I instructed the patient to follow up with their PCP in the next 1-3 days. I explained that the patient should return to the emergency department if they experience any worsening symptoms. Strict return precautions were discussed with the patient. The patient expressed understanding of these instructions. I answered all questions that the patient had. The patient was discharged home in good condition with their prescriptions and follow up information. Undiagnosed new problem with uncertain prognosis? @ -No Drug Therapy requiring intensive monitoring for toxicity (Heparin, Nitro, Insulin, Cardizem)? @ -No Were any procedures done? @ -No Diagnosis/symptom? @ -Lightheaded, weakness Acute, or Chronic, or Acute on Chronic? @ -Acute Uncomplicated (without systemic symptoms) or Complicated (systemic symptoms)? @ -Uncomplicated Side effects of treatment? @ -None Exacerbation, Progression, or Severe Exacerbation] @ -No Poses a threat to life or bodily function? @ -Unlikely - Lab Data Result diagrams: 09/21/24 09:41 09/21/24 09:41 Lab Results 09/21/24 09/21/24 09/21/24 Range/Units 09:11 09:41 09:41 WBC 5.4 (3.8-10.6) k/uL RBC 4.14 (3.80-5.40) m/uL Hgb 10.3 L (11.4-16.0) gm/dL Hct 35.0 (34.0-46.0) % MCV 84.5 (80.0-100.0) fL MCH 24.9 L (25.0-35.0) pg MCHC 29.4 L (31.0-37.0) g/dL RDW 19.7 H (11.5-15.5) % Plt Count 208 (150-450) k/uL MPV 8.2 Neutrophils % 53 % Lymphocytes % 24 % Monocytes % 10 % Eosinophils % 8 % Basophils % 1 % Neutrophils # 2.8 (1.3-7.7) k/uL Lymphocytes # 1.3 (1.0-4.8) k/uL Monocytes # 0.5 (0-1.0) k/uL Eosinophils # 0.4 (0-0.7) k/uL Basophils # 0.0 (0-0.2) k/uL Hypochromasia Marked Anisocytosis Slight PT 10.9 (10.0-12.5) sec INR 1.0 (<1.2) APTT 22.1 (22.0-30.0) sec Sodium (137-145) mmol/L Potassium (3.5-5.1) mmol/L Chloride (98-107) mmol/L Carbon Dioxide (22-30) mmol/L Anion Gap mmol/L BUN (7-17) mg/dL Creatinine (0.52-1.04) mg/dL Est GFR (CKD-EPI)AfAm (>60 ml/min/1.73 sqM) Est GFR (CKD-EPI)NonAf (>60 ml/min/1.73 sqM) Glucose (74-99) mg/dL POC Glucose (mg/dL) 173 H (70-110) mg/dL POC Glu Microfilm Processor ID [place] Joyce Plasma Lactic Acid Michael (0.7-2.0) mmol/L Calcium (8.4-10.2) mg/dL Magnesium (1.6-2.3) mg/dL Total Bilirubin (0.2-1.3) mg/dL AST (14-36) U/L ALT (4-34) U/L Alkaline Phosphatase (38-126) U/L Total Protein (6.3-8.2) g/dL Albumin (3.5-5.0) g/dL TSH (0.465-4.680) mIU/L Urine Color Urine Appearance (Clear) Urine pH (5.0-8.0) Ur Specific [place] (1.001-1.035) Urine Protein (Negative) Urine Glucose (UA) (Negative) Urine Ketones (Negative) Urine Blood (Negative) Urine Nitrite (Negative) Urine Bilirubin (Negative) Urine Urobilinogen (<2.0) mg/dL Ur Leukocyte Esterase (Negative) Urine RBC (0-5) /hpf Urine WBC (0-5) /hpf Ur Squamous Epith Cells (0-4) /hpf Urine Bacteria (None) /hpf Urine Mucus (None) /hpf Influenza Type A (PCR) (Not Detectd) Influenza Type B (PCR) (Not Detectd) RSV (PCR) (Not Detectd) SARS-CoV-2 (PCR) (Not Detectd) 09/21/24 09/21/24 09/21/24 Range/Units 09:41 09:41 09:41 WBC (3.8-10.6) k/uL RBC (3.80-5.40) m/uL Hgb (11.4-16.0) gm/dL Hct (34.0-46.0) % MCV (80.0-100.0) fL MCH (25.0-35.0) pg MCHC (31.0-37.0) g/dL RDW (11.5-15.5) % Plt Count (150-450) k/uL MPV Neutrophils % % Lymphocytes % % Monocytes % % Eosinophils % % Basophils % % Neutrophils # (1.3-7.7) k/uL Lymphocytes # (1.0-4.8) k/uL Monocytes # (0-1.0) k/uL Eosinophils # (0-0.7) k/uL Basophils # (0-0.2) k/uL Hypochromasia Anisocytosis PT (10.0-12.5) sec INR (<1.2) APTT (22.0-30.0) sec Sodium 136 L (137-145) mmol/L Potassium 4.1 (3.5-5.1) mmol/L Chloride 91 L (98-107) mmol/L Carbon Dioxide 33 H (22-30) mmol/L Anion Gap 12 mmol/L BUN 33 H (7-17) mg/dL Creatinine 3.30 H (0.52-1.04) mg/dL Est GFR (CKD-EPI)AfAm 15 (>60 ml/min/1.73 sqM) Est GFR (CKD-EPI)NonAf 13 (>60 ml/min/1.73 sqM) Glucose 179 H (74-99) mg/dL POC Glucose (mg/dL) (70-110) mg/dL POC Glu Microfilm Processor ID Plasma Lactic Acid Michael 2.0 (0.7-2.0) mmol/L Calcium 8.4 (8.4-10.2) mg/dL Magnesium 2.3 (1.6-2.3) mg/dL Total Bilirubin 0.7 (0.2-1.3) mg/dL AST 22 (14-36) U/L ALT 12 (4-34) U/L Alkaline Phosphatase 76 (38-126) U/L Total Protein 7.1 (6.3-8.2) g/dL Albumin 4.1 (3.5-5.0) g/dL TSH 2.530 (0.465-4.680) mIU/L Urine Color Light Yellow Urine Appearance Cloudy H (Clear) Urine pH 6.5 (5.0-8.0) Ur Specific [place] 1.015 (1.001-1.035) Urine Protein 2+ H (Negative) Urine Glucose (UA) Negative (Negative) Urine Ketones Negative (Negative) Urine Blood Small H (Negative) Urine Nitrite Negative (Negative) Urine Bilirubin Negative (Negative) Urine Urobilinogen <2.0 (<2.0) mg/dL Ur Leukocyte Esterase Large H (Negative) Urine RBC 6 H (0-5) /hpf Urine WBC 37 H (0-5) /hpf Ur Squamous Epith Cells 15 H (0-4) /hpf Urine Bacteria Moderate H (None) /hpf Urine Mucus Rare H (None) /hpf Influenza Type A (PCR) (Not Detectd) Influenza Type B (PCR) (Not Detectd) RSV (PCR) (Not Detectd) SARS-CoV-2 (PCR) (Not Detectd) 09/21/24 Range/Units 09:41 WBC (3.8-10.6) k/uL RBC (3.80-5.40) m/uL Hgb (11.4-16.0) gm/dL Hct (34.0-46.0) % MCV (80.0-100.0) fL MCH (25.0-35.0) pg MCHC (31.0-37.0) g/dL RDW (11.5-15.5) % Plt Count (150-450) k/uL MPV Neutrophils % % Lymphocytes % % Monocytes % % Eosinophils % % Basophils % % Neutrophils # (1.3-7.7) k/uL Lymphocytes # (1.0-4.8) k/uL Monocytes # (0-1.0) k/uL Eosinophils # (0-0.7) k/uL Basophils # (0-0.2) k/uL Hypochromasia Anisocytosis PT (10.0-12.5) sec INR (<1.2) APTT (22.0-30.0) sec Sodium (137-145) mmol/L Potassium (3.5-5.1) mmol/L Chloride (98-107) mmol/L Carbon Dioxide (22-30) mmol/L Anion Gap mmol/L BUN (7-17) mg/dL Creatinine (0.52-1.04) mg/dL Est GFR (CKD-EPI)AfAm (>60 ml/min/1.73 sqM) Est GFR (CKD-EPI)NonAf (>60 ml/min/1.73 sqM) Glucose (74-99) mg/dL POC Glucose (mg/dL) (70-110) mg/dL POC Glu Microfilm Processor ID Plasma Lactic Acid Michael (0.7-2.0) mmol/L Calcium (8.4-10.2) mg/dL Magnesium (1.6-2.3) mg/dL Total Bilirubin (0.2-1.3) mg/dL AST (14-36) U/L ALT (4-34) U/L Alkaline Phosphatase (38-126) U/L Total Protein (6.3-8.2) g/dL Albumin (3.5-5.0) g/dL TSH (0.465-4.680) mIU/L Urine Color Urine Appearance (Clear) Urine pH (5.0-8.0) Ur Specific [place] (1.001-1.035) Urine Protein (Negative) Urine Glucose (UA) (Negative) Urine Ketones (Negative) Urine Blood (Negative) Urine Nitrite (Negative) Urine Bilirubin (Negative) Urine Urobilinogen (<2.0) mg/dL Ur Leukocyte Esterase (Negative) Urine RBC (0-5) /hpf Urine WBC (0-5) /hpf Ur Squamous Epith Cells (0-4) /hpf Urine Bacteria (None) /hpf Urine Mucus (None) /hpf Influenza Type A (PCR) Not Detected (Not Detectd) Influenza Type B (PCR) Not Detected (Not Detectd) RSV (PCR) Not Detected (Not Detectd) SARS-CoV-2 (PCR) Not Detected (Not Detectd) - EKG Data -: EKG Interpreted by Me EKG Comments: 12-lead Electrocardiogram Interpretation Note EKG was reviewed and interpreted by myself. 12-lead ECG performed at 0905 is interpreted by me as revealing normal sinus rhythm at a rate of 64 beats per minute. [place] is normal. TX interval is 160 ms, QRS duration is 129 ms, QTc is 475 ms.. There were no ST or T wave abnormalities to suggest myocardial ischemia or injury. R wave progression across the precordium was delayed. By my interpretation this EKG is non-diagnostic for acute ischemia. Compared with EKG from May 2023. No significant change. Disposition Clinical Impression: Weakness, Lightheaded Disposition: HOME SELF-CARE Condition: Good Additional Instructions: Follow-up with your PCP in the next 1 to 3 days. Make sure you attend your dialysis session tomorrow. Return if any worsening symptoms. Is patient prescribed a controlled substance at d/c from ED?: No Referrals: Isacc Valdez MD [Primary Care Provider] - 1-2 days Time of Disposition: 11:10
[2024-09-21 09:14] LABS: Glucose,Whole Blood 173 mg/dL (70-110)
[2024-09-21 09:48] LABS: Anisocytosis Slight; Basophils % (A) 1 %; Eosinophils # (A) 0.4 k/uL (0-0.7); Eosinophils % (A) 8 %; HGB 10.3 gm/dL (11.4-16.0); Hypochromasia Marked; Lymphocytes # (A) 1.3 k/uL (1.0-4.8); Lymphocytes % (A) 24 %; MCH 24.9 pg (25.0-35.0); MCHC 29.4 g/dL (31.0-37.0); MCV 84.5 fL (80.0-100.0); Mean Platelet Volume 8.2; Monocytes # (A) 0.5 k/uL (0-1.0); Monocytes % (A) 10 %; Neutrophils # (A) 2.8 k/uL (1.3-7.7); Neutrophils % (A) 53 %; Platelet Count 208 k/uL (150-450); RBC 4.14 m/uL (3.80-5.40); RDW 19.7 % (11.5-15.5); WBC 5.4 k/uL (3.8-10.6)
--- NOTE | 2024-09-21 10:01 | XR ---
EXAMINATION TYPE: XR chest 2V DATE OF EXAM: 09/21/2024 CLINICAL INDICATION: Female, 79 years old with history of Weakness, TECHNIQUE: Frontal and lateral views of the chest are obtained. COMPARISON: Chest x-ray May 14, 2023 FINDINGS: There is some chronic parenchymal change without suspicious focal air space opacity, pleur al effusion, or pneumothorax seen. Persistent cardiomegaly with atherosclerotic thoracic aorta. The osseous structures remain demineralized. IMPRESSION: Cardiomegaly without acute pulmonary process. [facility], , 09/21/2024 9:59 AM
[2024-09-21 10:04] LABS: Partial Thromboplastin Time 22.1 sec (22.0-30.0); Prothrombin Time 10.9 sec (10.0-12.5)
[2024-09-21 10:06] LABS: ALT 12 U/L (4-34); AST 22 U/L (14-36); African American GFR (CKD) 15 (>60 ml/min/1.73 sqM); Albumin 4.1 g/dL (3.5-5.0); Alkaline Phosphatase 76 U/L (38-126); Anion Gap 12 mmol/L; Blood Urea Nitrogen 33 mg/dL (7-17); Calcium 8.4 mg/dL (8.4-10.2); Carbon Dioxide 33 mmol/L (22-30); Chloride 91 mmol/L (98-107); Glucose 179 mg/dL (74-99); Magnesium 2.3 mg/dL (1.6-2.3); Non-African American GFR(CKD) 13 (>60 ml/min/1.73 sqM); Potassium 4.1 mmol/L (3.5-5.1); Sodium 136 mmol/L (137-145); Total Bilirubin 0.7 mg/dL (0.2-1.3); Total Protein 7.1 g/dL (6.3-8.2)
[2024-09-21 10:38] LABS: Influenza A Not Detected (Not Detectd); Influenza B Not Detected (Not Detectd); RSV Not Detected (Not Detectd)
[2024-09-21 12:03] LABS: Appearance,Urine Cloudy (Clear); Bacteria,Urine Moderate /hpf; Bilirubin,Urine Negative (Negative); Blood,Urine Small (Negative); Color,Urine Light Yellow; Glucose,Urine (UA) Negative (Negative); Ketones,Urine Negative (Negative); Leukocyte Esterase,Urine Large (Negative); Mucus,Urine Rare /hpf; Nitrite,Urine Negative (Negative); PH, Urine 6.5 (5.0-8.0); Protein,Urine 2+ (Negative); RBC,Urine 6 /hpf (0-5); Specific Gravity,Urine 1.015 (1.001-1.035); Squamous Epithelial Cell,Urine 15 /hpf (0-4); Urobilinogen,Urine <2.0 mg/dL (<2.0); WBC,Urine 37 /hpf (0-5)
[2024-09-21 12:19] VITALS: BP 142/62; PULSE 68; RESP 17; TEMP 98
== END 2024-09-21 12:19 | disposition home or self-care (01) ==
LOC: EC 08:55
DX: R53.1 Weakness (principal); R42 Dizziness and giddiness
CPT/HCPCS: 36415; 71046; 80053; 81001; 83605; 83735; 84443; 85025; 85610; 85730; 87636; 93005; 99285

== ENCOUNTER 2025-01-31 10:41 | Day surgery (SDC) | payer MEDICARE ==
[2025-01-29 15:32] VITALS: BMI 31.8
[2025-01-31] MEDS ORDERED: LACTATED RINGERS 1,000 ML IV SCH (11:03)
[2025-01-31] MEDS: IV FLUID CONTINUATION 1,000 ML IV ONE (11:21)
[2025-01-31] MEDS: SODIUM CHLORIDE 0.9% 500 ML 500 ML IV ONE (11:21)
[2025-01-31 11:37] VITALS: TEMP 98.3
[2025-01-31 11:53] LABS: Glucose,Whole Blood 152 mg/dL (70-110)
[2025-01-31] MEDS: DEXAMETHASONE SOD PHOSPHATE 4 MG/ML 1 ML VIAL IVP STA (11:57)
[2025-01-31] MEDS: ONDANSETRON 4 MG/2 ML VIAL IVP STA (11:58)
[2025-01-31] MEDS: SODIUM CHLORIDE 0.9% 500 ML 500 ML IV SCH (12:00)
[2025-01-31 12:07] LABS: African American GFR (CKD) 12 (>60 ml/min/1.73 sqM); Anion Gap 10 mmol/L; Blood Urea Nitrogen 54 mg/dL (7-17); Calcium 9.3 mg/dL (8.4-10.2); Carbon Dioxide 32 mmol/L (22-30); Chloride 96 mmol/L (98-107); Glucose 150 mg/dL (74-99); Non-African American GFR(CKD) 10 (>60 ml/min/1.73 sqM); Sodium 138 mmol/L (137-145)
[2025-01-31 12:12] LABS: Potassium 5.2 mmol/L (3.5-5.1)
[2025-01-31] MEDS ORDERED: MIDAZOLAM 2 MG/2 ML VIAL ONE (12:25)
[2025-01-31] MEDS ORDERED: fentaNYL (PF) 50 MCG/ML 2 ML AMP ONE (12:25)
[2025-01-31] MEDS: LIDOCAINE 1% INJ 10MG/ML (20 ML MDV) SQ ONE (12:53)
[2025-01-31] MEDS: ceFAZolin 2 GM in SODIUM CHLORIDE 0.9% 500 ML 500 ML IRRIGATION ONE (12:55)
[2025-01-31 13:15] VITALS: PULSE 61
--- NOTE | 2025-01-31 13:16 | P.OP ---
Date of Procedure: 01/31/25 Preoperative Diagnosis: Steal syndrome left hand during dialysis. Presence of a left upper extremity AV fistula with multiple sidebranches. Postoperative Diagnosis: Same. Procedure(s) Performed: Ligation of 2 patent side branches of the left upper extremity AV fistula Implants: None. Anesthesia: MAC, local (1% Xylocaine) Surgeon: Jairon Butler Estimated Blood Loss (ml): 1 Urine output (ml): 0 Pathology: none sent Condition: stable Disposition: no change Indications for Procedure: Patient is a 79-year-old dialysis dependent patient who has a left upper extremity AV fistula. This has been functional for significant timeframe. During dialysis the patient experiences increased hand pain and numbness consistent with a steal syndrome. Physical examination demonstrates to patent sidebranches from the fistula. The patient has a nonpalpable radial pulse at baseline. With compression of these 2 sidebranches the radial pulse returns and is felt that the patient's symptoms are due to a steal syndrome. It was also fe lt that ligation of the sidebranches would be very beneficial in relieving the patient's symptoms. The procedure, risk and benefits were discussed. All questions were answered to patient and family satisfaction. Consent form signed. Description of Procedure: Patient was brought the op room and placed in the supine position administered attended anesthesia delivered by the department of anesthesiology. Patient did receive intravenously administered prophylactic antibiotics in the perioperative phase. The patient's left upper extremity was sterilely prepped and draped in usual manner. The 2 side branches were identified and marked. Where marked 1% Xylocaine was utilized for local anesthesia. Through the anesthetized area a small skin incision was made carried down through subcutaneous tissues. The vein was identified, mobilized and ligated with silk suture. The wound was closed with 4-0 Monocryl placed in intradermal fashion. Similar procedure was performed on both incisions. Both wounds were then treated with skin glue and bandages were applied. Patient tolerated procedure well and was taken to the recovery area in satisfactory and stable condition. Plan - Discharge Summary Discharge Rx Participant: Yes New Discharge Prescriptions: No Action Cinacalcet [Sensipar] 30 mg PO MOWEFR allopurinoL [Zyloprim] 300 mg PO HS INSULIN LISPRO (humaLOG) [humaLOG] 16 units SQ AC-TID carvediloL [Coreg] 6.25 mg PO BID Insulin Glargine,Hum.rec.anlog [Basaglar Kwikpen U-100] 30 unit SQ HS Rosuvastatin [Crestor] 20 mg PO DAILY Furosemide [Lasix] 40 mg PO DIRECTED Magnebind 300mg 1 tab PO AC-LUNCH Ferrous Sulfate [Iron (65 MG Elemental)] 325 mg PO MOWEFR Midodrine [ProAmatine] 5 mg PO TID PRN PRN Reason: low bp Acetaminophen Tab [Tylenol] 650 mg PO Q6HR PRN tab PRN Reason: Fever And/ Or Pain Discharge Medication List Cinacalcet [Sensipar] 30 mg PO MOWEFR 12/01/16 [History] allopurinoL [Zyloprim] 300 mg PO HS 11/02/17 [History] INSULIN LISPRO (humaLOG) [humaLOG] 16 units SQ AC-TID 01/17/19 [History] Insulin Glargine,Hum.rec.anlog [Basaglar Kwikpen U-100] 30 unit SQ HS 06/19/20 [History] carvediloL [Coreg] 6.25 mg PO BID 06/19/20 [History] Rosuvastatin [Crestor] 20 mg PO DAILY 01/28/21 [History] Furosemide [Lasix] 40 mg PO DIRECTED 02/27/21 [History] Ferrous Sulfate [Iron (65 MG Elemental)] 325 mg PO MOWEFR 07/18/21 [History] Magnebind 300mg 1 tab PO AC-LUNCH 07/18/21 [History] Midodrine [ProAmatine] 5 mg PO TID PRN 07/18/21 [History] Acetaminophen Tab [Tylenol] 650 mg PO Q6HR PRN tab 07/22/21 [Rx]
[2025-01-31 13:30] VITALS: BP 147/53; RESP 13
== END 2025-01-31 14:06 | disposition home or self-care (01) ==
LOC: OR 10:41
PROVIDERS: ATTEND Surgery
DX: T82.898A Other specified complication of vascular prosthetic devices, implants and grafts, initial encounter (principal); I63.9 Cerebral infarction, unspecified; N18.6 End stage renal disease; E11.9 Type 2 diabetes mellitus without complications; E78.5 Hyperlipidemia, unspecified; I10 Essential (primary) hypertension; L23.1 Allergic contact dermatitis due to adhesives; Z99.2 Dependence on renal dialysis; Z88.0 Allergy status to penicillin; Z88.1 Allergy status to other antibiotic agents; Z88.2 Allergy status to sulfonamides; Z79.4 Long term (current) use of insulin; Z79.899 Other long term (current) drug therapy
CPT/HCPCS: 80048; 37607; J2250; J1100; J0690; J2405; J2003; J3010